=== PATIENT | male | born 1955 | race Caucasian/White ===

== ENCOUNTER 2018-03-26 16:36 | Observation (INO) | payer MEDICAID, SELFPAY ==
[2018-03-26] VITALS (11 sets, daily range): BP systolic 127–162; BP diastolic 61–89; PULSE 51–67; RESP 14–20; TEMP 36.5–36.7; O2SAT 96–98; BMI 42.8; BMI 42.5; BMI 42.6
--- NOTE | 2018-03-26 16:54 | CT_ITS ---
STUDY: CT BRAIN WITHOUT CONTRAST REASON FOR EXAM: Male, 62 years old. Dizziness and weakness RADIATION DOSAGE (If Supplied By Facility): CTDIvol = ( 44.99 ) mGy, DLP = ( 815.79 ) mGycm TECHNIQUE: Transaxial CT imaging of the brain was performed without administration of intravenous contrast material. Individualized dose optimization techniques were used for this CT. COMPARISON: 08/22/2015 FINDINGS: Normal soft tissue structures. Normal calvarium. There is mild cerebral atrophy with widening of the extra-axial spaces and ventricular dilatation. There are areas of decreased attenuation within the white matter tracts of the supratentorial brain, consistent with microvascular disease changes. Normal basal ganglia and thalami. Normal brainstem. Normal cerebellum. There is no intracranial hemorrhage. There are no findings of an acute ischemic infarction. Normal visualized paranasal sinuses. CT/Brain/Head without Contrast IMPRESSION: Chronic involutional changes of the brain. Electronically Signed: Jorge Nguyen DO at 17:58 EDT Tel , Service support ,
--- NOTE | 2018-03-26 16:54 | EKG12_ITS ---
Test Reason : SYNCOPE Blood Pressure : / mmHG Vent. Rate : 055 BPM Atrial Rate : 055 BPM P-R Int : 210 ms QRS Dur : 084 ms QT Int : 430 ms P-R-T Axes : 053 037 051 degrees QTc Int : 411 ms Sinus bradycardia with 1st degree A-V block Otherwise normal ECG Confirmed by JORDYN BLACKMON, ROSALIE ([id number]), editor continuity and script ROSEMARY YAN ([id number]) on 03/30/2018 2:51:04 PM Referred By: SAMMY Confirmed By:ROSALIE COBB MD
--- NOTE | 2018-03-26 17:15 | ED.DCSUM_ITS ---
- ER Visit Summary Date of Service: 03/26/18 Chief Complaint: Dizzy History of Present Illness: The patient is a 62 M with dizziness that started today around 3:45 PM. He describes it as the room spinning. He has had this intermittently but it seems to be getting worse. Denies any history of ear problems, hearing changes, tinnitus, or recent infections. He has never seen a specialist for vertigo. He is also having syncopal episodes which his doctor attributes to anxiety. He had similar symptoms earlier this month and was evaluated in an outside emergency department. He was told he was dehydrated and discharged home. He has had continued symptoms. He has a history of diabetes, hypertension, hyperlipidemia, atrial fibrillation, and others. He does take aspirin. He is a former smoker. Physical Examination: Afebrile and vital signs unremarkable. Alert and oriented . Head and neck atraumatic. HEENT exam unremarkable. Cranial nerves grossly intact. Heart regular rate and rhythm. Lungs clear. Abdomen soft and nontender. Extremities show trace symmetric peripheral edema. Nontender. Good pulses and sensation. Good strength. NIH stroke scale is 0. During my exam, the patient had a brief unresponsive episode that lasted about 10 seconds. He closed his eyes and looked away from me. He would not respond to voice. I did raise his arm over his head, and it drifted away from his body. He woke up spontaneously. He had no incontinence, tongue biting, shaking, or any confusion afterwards. Test Results: EKG shows sinus rhythm at a rate of 55. No sign of acute ischemia or infarction pattern. Laboratory studies, chest x-ray, and CT brain pending. Emergency Department Course and Treatment: Patient has no classic signs of stroke, but I am concerned this ongoing vertigo could be a posterior circulation problem. He does have risk factors. It does not sound like benign positional postural vertigo and he has no other ear related symptoms. I do not believe he has true syncopal episodes. I believe these might be behavioral. There is nothing to suggest seizures. His workup here including EKG, CBC, BMP, coags, troponin, chest x-ray, CT head is all unremarkable. Because of the patient's symptoms and risk factors, I did speak with the hospitalist to admit for dizziness. Treatment Plan: As above Disposition: Admission Impression: 1. Vertigo 2. Spells This note was generated with Dragon dictation software. It may contain incorrect words, spelling, and punctuation that were not noted in review of the chart prior to signing ED Disposition - Plan for ED Patient: Chief Complaint: Syncope Referrals: Devonte Moon MD [Primary Care Provider] -
[2018-03-26 17:36] LABS: Bedside Glucose 117 mg/dL (70-110)
--- NOTE | 2018-03-26 17:39 | RAD_ITS ---
STUDY: X-RAY CHEST REASON FOR EXAM: Male, 62 years old. Dizziness TECHNIQUE: Single AP portable view of the chest. COMPARISON: 06/07/2013 FINDINGS: The lungs are clear and expanded. There is no demonstrated pleural abnormality. Normal size heart. Normal mediastinum and mariaelena. Normal visualized pulmonary arteries. Normal visualized aortic arch and descending thoracic aorta. Normal visualized thoracic spine. Normal visualized ribs, clavicles, and shoulders. There is no demonstrated abnormality of the visualized soft tissue structures of the upper abdomen. RAD/Chest 1 View IMPRESSION: Normal x-ray examination of the chest. Electronically Signed: Jorge Nguyen DO at 17:58 EDT Tel , Service support ,
[2018-03-26 17:42] LABS: Absolute Lymphocyte Count 0.97 X10^3/ul (0.83-4.51); Absolute Neutrophil Count 4.1 X10^3/uL (2.0-7.7); Basophil# 0.03 X10^3/uL; Basophil% 0.5 % (0-1); Eosinophil# 0.21 X10^3/uL; Eosinophils% 3.6 % (0-5); Hematocrit 42.7 % (40-54); Hemoglobin 14.3 g/dl (13.0-16.5); Lymphocyte # 0.97 X10^3/ul (4.0); Lymphocyte % 16.6 % (19-41); Mean Corp Hgb Conc 33.5 g/gl (32-36); Mean Corpuscular Hgb 29.5 pg (27.0-32.0); Mean Corpuscular Volume 88.2 fL (80-94); Mean Platelet Vol. 8.9 fl (6.2-12.0); Monocyte# 0.52 X10^3/uL; Monocyte% 8.9 % (0-10); Neutrophil # 4.12 X10^3/uL (2.7-7.7); Neutrophil % 70.2 % (47-70); POSITIVE COUNT NO; POSITIVE DIFFERENTIAL NO; POSITIVE MORPHOLOGY NO; Platelet Count 197 K/mm3 (150-450); RBC Distribution Width SD 41.3 fl (35.1-43.9); Red Blood Count 4.84 M/mm3 (4.6-6.2); White Blood Count 5.9 K/mm3 (4.4-11.0)
[2018-03-26 17:53] LABS: Prothrombin Time (Protime)PT. 12.8 SECONDS (11.7-14.9)
[2018-03-26 18:09] LABS: Anion Gap 5 (5-15); BUN 28 mg/dL (7-18); BUN/Creat Ratio 18.7 RATIO (10-20); Calcium,Total 8.7 mg/dL (8.5-10.1); Chloride 107 mmol/L (98-107); EST Glomerular Filtration Rate 50 mL/min (>60); Est Glom Filt Rate - Afr Amer 61 mL/min (>60); Estimated Creatinine Clearance 51.06 ml/min; Glucose 129 mg/dL (74-106); Potassium 4.7 mmol/L (3.5-5.1); Sodium Level 138 mmol/L (136-145)
--- NOTE | 2018-03-26 18:24 | HP.PCM_ITS ---
Problem List (1) Dizziness Status: Acute History of Present Illness Date of Admission: 03/26/18 Chief Complaint: dizziness The patient is a 62 year old M with a history of hypertension, diabetes and hyperlipidemia. He was admitted via the ED on 03/26/18 with a complaint of dizziness which started in his doctor's office this morning. Patient says dizziness was of sudden onset, with no associated nausea or vomiting. He does admit to some ringing in his ears, and says the dizziness and vertigo has been going on for some years now. He has episodes of vertigo which are sudden and brief in nature, and started ~ 4 years ago. He had a similar episode ~ 2 weeks ago and some months ago. He complains of an associated headache. Vertigo and dizziness are not worsened by movement and can come on at any time. He denies any fever, chills, cough, chest pain, SOB, abdominal pain, diarrhea or vomiting. REview of systems was otherwise negative. Whilst in the ED, he was also noted to have brief unresponsive episodes which lasted a few seconds, and he immediately became conscious and alert, with no urinary or fecal incontinence, or evidence of seizure. Vitals in the ED showed temperature of 97.9 Fahrenheit, blood pressure 128/78, pulse rate of 67 and respiratory rate of 22. He was saturating 90% on room air. Labs were significant for creatinine of 1.5 with baseline being less than 1. CBC was unremarkable. Initial troponin was negative. Chest x-ray showed no acute ST changes and brain CT showed chronic involutional changes but no acute intracranial process. He is been admitted to be worked up for vertigo and dizziness.[] Past Medical History Past Medical History (Chronic Problems): Chronic Problems BPH (benign prostatic hyperplasia) (Chronic) Peptic ulcer disease with hemorrhage (Chronic) Paroxysmal atrial fibrillation (Chronic) Acute pancreatitis (Chronic) Allergies lanolin Allergy (Verified 03/26/18 16:46) Unknown Home Medications: Ambulatory Orders Medication Instructions Recorded Acebutolol HCl [Sectral (Beta 200 mg PO BID 03/26/18 [place])] Aspirin E.C. [Ecotrin] 81 mg PO DAILY 03/26/18 Flecainide [Tambocor] 100 mg PO BID 03/26/18 Lisinopril [Zestril] 5 mg PO DAILY 03/26/18 Metformin HCl [Glucophage] 500 mg PO BID 03/26/18 Pantoprazole Sodium 40 mg PO BID 03/26/18 Sertraline HCl [Zoloft] 50 mg PO DAILY 03/26/18 Simvastatin [Zocor] 20 mg PO QHS 03/26/18 Surgical History: cholecystectomy Psychiatric History: No pertinent psych hx Lives: Alone Smoking Status: Former smoker - quit ~ 4-5 years ago Alcohol: None Drugs: None - *Family History Maternal History Items: No pertinent history Paternal History Items: No pertinent history Review of Systems Constitutional: Denies: Chills, Fever, Weight Change Eyes: Denies: Blurred vision, Double vision, Vision Change HEENT: Denies: Head Aches, Sinus Congestion, Sinus Drainage Cardiovascular: Reports: Edema - bilateral LE edema. Denies: Chest Pain, Chest Pressure, Palpitations, Paroxysmal Noc. Dyspnea, Syncope Respiratory: Denies: Cough, Shortness of Breath, Shortness of breath at rest, Shortness of breath upon exertion, Sputum production Gastrointestinal: Denies: Abdominal Pain, Nausea, Vomiting Genitourinary: Denies: Dysuria Musculoskeletal: Denies: Joint Pain, Joint Tenderness Skin: Denies: Rash, Wounds Neurological: Reports: Numbness - complains of numbness of LLE. Denies: Balance problems, Blurred vision, Change in Speech, Slurred speech, Confusion, Tremor, Seizures Psychiatric: Denies: Anxiety, Depression, Homicidal Ideations, Suicidal Ideations Hematologic/ Lymphatic: Denies: Easy Bruising, Easy Bleeding VTE Information - Inpt Only VTE Present on Admission: No VTE Mechan Device Prophylaxis: None VTE Pharm Prophylaxis ordered?: Yes Patient Problems: Active and Suspected Problems Dizziness (Acute) - Physical Exam General: Alert, Oriented x3, Cooperative, No apparent distress HEENT: Atraumatic, PERRLA, EOMI, Normocephalic Oral: Moist Mucosa Neck: Supple, No JVD, Negative Carotid Bruits Lungs: Clear to auscultation, Normal air movement, No rhonchi, No wheeze, No rales Cardiovascular: Regular rate, Regular Rhythm, Normal S1, Normal S2, No murmurs Abdomen: Bowel Sounds Present, Soft, Non Tender, Non-Distended, No Hepato- splenomegaly Extremities: No clubbing, No cyanosis, Capillary Refill Less than 3 Seconds, No Calf Tenderness, - - mild 1+ bilateral LE edema Skin: No rashes, No breakdown Musculoskeletal: No Tenderness to Palpation of Joints or Extremities Neurological: Cranial nerves II-XII grossly intact, Deep Tendon Reflexes 2+/4 and Symmetrical, Motor Exam 5/5 strength throughout, Muscle tone normal, Sensory exam intact to light touch and pain, Coordination normal, - - no nystagmus. Didnt do Ariana Hallpike test as patient complained of dizziness during review Psych/Mental Status: Normal Affect, Appropriate, Alert and oriented to time, place, person, mood and affect Vital Signs Temp Pulse Resp BP Pulse Ox 97.9 F 51 L 17 127/72 H 96 03/26/18 16:40 03/26/18 18:00 03/26/18 18:00 03/26/18 18:00 03/26/18 18:00 Oxygen Delivery Method Room Air Weight: 290 lb Body Mass Index (BMI) 42.8 Finger Stick Blood Glucose 117 Laboratory Tests Past 24 Hrs 03/26/18 03/26/18 03/26/18 17:24 17:24 17:24 WBC 5.9 RBC 4.84 Hgb 14.3 Hct 42.7 MCV 88.2 MCH 29.5 MCHC 33.5 RDW 13.0 RDW Differential 41.3 Plt Count 197 MPV 8.9 Immature Gran % (Auto) 0.200 Neut % (Auto) 70.2 H Lymph % (Auto) 16.6 L Blaine % (Auto) 8.9 Eos % (Auto) 3.6 Baso % (Auto) 0.5 Absolute Neuts (auto) 4.1 Absolute Lymphs (auto) 0.97 Total Counted Not Reportable PT 12.8 INR 1.0 APTT 29.0 Sodium 138 Potassium 4.7 Chloride 107 Carbon Dioxide 26.0 Anion Gap 5 BUN 28 H Creatinine 1.50 H Estim Creat Clear Calc 51.06 Est GFR (MDRD) Af Amer 61 Est GFR (MDRD) Non-Af 50 L BUN/Creatinine Ratio 18.7 Glucose 129 H Calcium 8.7 Troponin I < 0.015 POC Glucose 03/26/18 17:29 POC Glucose 117 H Diagnostic Data Brain CT 03/26/18 16:54 IMPRESSION: Chronic involutional changes of the brain. Electronically Signed: Jorge Nguyen DO at 17:58 EDT Tel , Service support , Chest X-Ray 03/26/18 17:39 IMPRESSION: Normal x-ray examination of the chest. Electronically Signed: Jorge Nguyen DO at 17:58 EDT Tel , Service support , Assessment/Plan All Active Problems Dizziness (Acute) Abdominal pain (Acute) 62 y/o male presenting with a complaint of paroxysmal episodes of dizziness and vertigo. 1. Vertigo * had brief episode of vertigo in his PCP's office, which recurred when he was seen in ED. * vertigo has been going on for the past 4 years * CT head was negative for any acute intracranial process; * EKG showed NSR with first degree AV block * NIHSS-2 (mild drift in LEs). I think it is unlikely that patient's symptoms are due to a stroke, as it has been going on for the past 4 years episodically. * admit to PCU with telemetry * start PO meclizine * MRI of brain tomorrow * neurology consult * check lipid panel, A1C * aspirin 81mg daily. will switch simvastatin to atorvastatin 40mg qhs. * 2. Unresponsive spells * had a brief episode of unresponsiveness done in the ED and was immediately conscious afterwards with no lethargy or evidence of seizure. On admission to the floor, patient also had such a brief episode again. * Care of this is a seizure may be behavioral related. * Getting MRI tomorrow. Neurology consulted. * may benefit from EEG- will await neuro rec's * 3. Hypertension * well controlled. * on lisinopril and acetabulol; will continue * 4. Diabetes mellitus * on metformin 500mg bid * accuchecks ACHS. * will check A1c * ISS * 5. Hyperlipidemia: * on simvastatin 20mg qhs; will switch to high intensity atorvastatin 40mg qhs * check lipid panel * DVT prophylaxis: heparin Code status: full code * patient counselled extensively about code status; counseled about different types of code status, DNRCC and DNRCCA. Patient elects to be full code. Total face to face time 16 mins. Code Visit Inpatient E&M: 43294 Init Hosp L3 Procedures: 17151 Advncd Care Plan 30 Min
--- NOTE | 2018-03-26 19:00 | NURSING ---
185 Pt assisted to stand off of ER cot and ambulate to bed; pt reported he didn't feel well and subsequently passed out after this RN and Teri Hanna RN sat pt down on bed; luis alfredo hoffman pulled for assisted. Pt responded to sternal rub and yelling after approx 30 seconds. nurse monitoring not yet on at time of transfer to bed. When applied, pt in SR/SB upper 50s. 1900 NIHSS completed which was notable for varying degrees of R sided numbness and tingling. Pt also stated I'm in so much pain and subsequently passed out again for approx 10-15 seconds and was awakened to sternal rub and yelling. Pt c/o pain all over. Remains alert and oriented. Admission RN completing admission process at this time.
[2018-03-26] MEDS: Aspirin 81 MG TAB.CHEW PO (20:16)
[2018-03-26] MEDS: Flecainide 100 MG Tablet PO (21:23)
[2018-03-26] MEDS: Atorvastatin Calcium 40 MG Tablet PO (21:24)
[2018-03-26] MEDS: Pantoprazole Sodium 40 MG Tablet PO (21:24)
[2018-03-26] MEDS: Heparin Injection (Vial) 5,000 UNIT/ML VIAL 5000 UNIT SC (21:24)
[2018-03-26 22:26] LABS: Bedside Glucose 112 mg/dL (70-110)
[2018-03-27] VITALS (12 sets, daily range): BP systolic 119–135; BP diastolic 62–74; PULSE 48–61; RESP 16–18; TEMP 36.4–36.8; O2SAT 95–98; BMI 42.5
[2018-03-27 06:27] LABS: Absolute Lymphocyte Count 1.25 X10^3/ul (0.83-4.51); Absolute Neutrophil Count 3.5 X10^3/uL (2.0-7.7); Basophil# 0.03 X10^3/uL; Basophil% 0.5 % (0-1); Eosinophil# 0.22 X10^3/uL; Hematocrit 40.6 % (40-54); Hemoglobin 13.7 g/dl (13.0-16.5); Lymphocyte # 1.25 X10^3/ul (4.0); Lymphocyte % 22.8 % (19-41); Mean Corp Hgb Conc 33.7 g/gl (32-36); Mean Corpuscular Volume 88.8 fL (80-94); Mean Platelet Vol. 9.1 fl (6.2-12.0); Monocyte% 9.1 % (0-10); Neutrophil # 3.48 X10^3/uL (2.7-7.7); Neutrophil % 63.4 % (47-70); Platelet Count 205 K/mm3 (150-450); RBC Distribution Width CV 13.1 % (11.6-14.6); Red Blood Count 4.57 M/mm3 (4.6-6.2); White Blood Count 5.5 K/mm3 (4.4-11.0)
[2018-03-27 06:29] LABS: POSITIVE COUNT NO; POSITIVE DIFFERENTIAL NO; POSITIVE MORPHOLOGY NO
[2018-03-27 06:43] LABS: Anion Gap 6 (5-15); BUN 25 mg/dL (7-18); BUN/Creat Ratio 16.9 RATIO (10-20); Calcium,Total 8.3 mg/dL (8.5-10.1); Chloride 108 mmol/L (98-107); Cholesterol 133 mg/dL (200); Creatinine, Serum 1.48 mg/dL (0.70-1.30); EST Glomerular Filtration Rate 51 mL/min (>60); Est Glom Filt Rate - Afr Amer 62 mL/min (>60); Estimated Creatinine Clearance 51.75 ml/min; Glucose 132 mg/dL (74-106); High Density Lipoprotein 32 mg/dL; Potassium 4.3 mmol/L (3.5-5.1); Sodium Level 141 mmol/L (136-145); Triglycerides 255 mg/dL; Very Low Density Lipoprotein 51 mg/dL (5-40)
[2018-03-27] MEDS: Heparin Injection (Vial) 5,000 UNIT/ML VIAL 5000 UNIT SC ×3 (07:10→22:19)
[2018-03-27] MEDS: Acetaminophen 325 MG Tablet 650 MG PO (07:10)
[2018-03-27 07:15] LABS: Hemoglobin A1c 6.6 % (4.2-6.3)
[2018-03-27 07:25] LABS: Bedside Glucose 161 mg/dL (70-110)
--- NOTE | 2018-03-27 08:00 | MRI_ITS ---
STUDY: MRI BRAIN WITHOUT CONTRAST REASON FOR EXAM: Male, 62 years old. Vertigo, numbness and tingling. TECHNIQUE: Standardized multiplanar fat and water weighted pulse sequences were obtained. COMPARISON: CT of the head dated March 26, 2018. FINDINGS: There is mild cerebral atrophy with widening of the extra-axial spaces and ventricular dilatation. There are a limited number of small white matter hyperintensities, distributed throughout the deep white matter tracts of the cerebral hemispheres, consistent with mild chronic white matter ischemic changes. There is no evidence for recent intracranial ischemia or other cause of cytotoxic edema on diffusion weighted imaging (DWI). Normal T2* images of the brain without demonstrated susceptibility artifact. There is no demonstrated hemosiderin stain. Normal bilateral basal ganglia. Normal thalami. There is no extra-axial fluid accumulation. Normal flow voids within the major intracranial circulation suggesting patency by spin echo criteria. Normal sella turcica, pituitary gland, infundibular stalk, optic chiasm and hypothalamus. Normal tectal plate and pineal gland. Normal midbrain, jerel and medulla. Normal cerebellum. Normal basal cisterns. Normal bilateral temporal bones. Normal bilateral internal auditory canals. No demonstrated orbital abnormality, within the constraints of a routine brain study. Normal visualized paranasal sinuses. Normal calvarium and skull base. Normal visualized soft tissue structures. Normal visualized upper cervical spine. MRI/Brain without Contrast IMPRESSION: 1. Involutional changes of the brain, as described above. 2. No MR evidence for acute infarct. Electronically Signed: Crystal Quinones MD at 10:26 EDT , Service support ,
--- NOTE | 2018-03-27 08:00 | CDU_ITS ---
Reason For Study: vertigo Rt. Velocities/BP Lt. Velocities/BP Prox CCA 80.9/18.8 cm/sec. Prox CCA 77.4/18.8 cm/sec. Mid CCA 79.7/19.9 cm/sec. Mid CCA 62.1/10.6 cm/sec. Dist CCA 48.7/17.0 cm/sec. Dist CCA 42.2/9.38 cm/sec. Prox ICA 49.7/14.6 cm/sec. Prox ICA 44.0/15.2 cm/sec. Mid ICA 68.0/23.5 cm/sec. Mid ICA 61.0/18.8 cm/sec. Dist ICA 71.5/31.7 cm/sec. Dist ICA 70.9/26.4 cm/sec. Rt. ICA/CCA = .9. Lt. ICA/CCA = 1.1. Prox ECA 73.9/11.7 cm/sec. Prox ECA 83.3/8.79 cm/sec. Rt. Vert. 60.4/15.2 cm/sec. Lt. Vert. 46.9/14.1 cm/sec. Right Extracranial There is homogeneous, smooth atherosclerotic plaque noted in the right common carotid artery. There is homogeneous, smooth atherosclerotic plaque noted in the right internal carotid artery. There is intimal thickening but no significant atherosclerotic plaque noted in the right external carotid artery. Antegrade flow is noted in the right vertebral artery. Left Extracranial There is homogeneous, smooth atherosclerotic plaque noted in the left common carotid artery. There is intimal thickening but no significant atherosclerotic plaque noted in the left internal carotid artery. There is intimal thickening but no significant atherosclerotic plaque noted in the left external carotid artery. Antegrade flow is noted in the left vertebral artery. There is heterogeneous, irregular atherosclerotic plaque noted in the left bulb. Procedure Carotid Duplex 14130. The exam was diagnostic. Exam performed portable in patient room. Interpretation Summary There is <50% stenosis in bilateral extracranial internal carotid arteries (ICAs) based on the velocity criteria. Theres is mild homogenous athrosclerotic plaque noted in right ICA and heterogenous atherosclerotic plaque in the left ICA. There is antegrade flow in bilateral vertebral arteries. Ordering Physician: Emelia Ross Performed By: Ramírez Gibson RVT
--- NOTE | 2018-03-27 08:13 | MRI_ITS ---
STUDY: MRA NECK WITHOUT CONTRAST REASON FOR EXAM: Male, 62 years old. Vertigo, numbness, tingling and recent syncope. TECHNIQUE: Source images were obtained, MIPs were performed. The study was performed unenhanced. Multiple images are limited by patient motion. COMPARISON: None. FINDINGS: RIGHT CAROTID ARTERIES: Normal right common carotid artery (CCA). Normal right common carotid bulb. There is mild atherosclerotic plaque formation of the origin of the right internal carotid artery with less than 50% cross sectional diameter stenosis. Normal visualized cervical portion of the right internal carotid artery. Normal origin of the right external carotid artery (ECA). LEFT CAROTID ARTERIES: There appears to be a focal defect within the mid left common carotid artery that may represent focal plaque. This may narrow the lumen of by about 30%. Some of this could be artifactual. There is mild atherosclerotic plaque formation with minimal narrowing of the left carotid bulb. Normal origin of the left internal carotid (ICA) artery without a hemodynamically significant stenosis. Normal visualized cervical portion of the left internal carotid artery. Normal origin of the left external carotid artery (ECA). VERTEBRAL ARTERIES: Bilateral vertebral arteries are difficult to see probably related to the atretic nature. There does appear to be antegrade blood flow within bilateral vertebral arteries. MRI/MRA Neck without Contrast IMPRESSION: 1. Technically limited MRA with evidence for possible focal area stenosis in the left mid common carotid artery. 2. No other evidence for hemodynamically significant stenosis. 3. Atretic bilateral vertebral arteries. Electronically Signed: Crystal Quinones MD at 11:42 EDT , Service support ,
--- NOTE | 2018-03-27 08:13 | MRI_ITS ---
STUDY: MRA OF THE HEAD WITHOUT CONTRAST REASON FOR EXAM: Male, 62 years old. Vertigo, numbness and tingling. TECHNIQUE: 3-D [id number] (TOF) imaging was performed with MIPs. The study was performed unenhanced. COMPARISON: None. FINDINGS: Normal bilateral petrous carotid arteries. Normal right cavernous carotid artery with a normal supraclinoid bifurcation. Normal left cavernous carotid artery with a normal supraclinoid bifurcation. Normal right A1 segments of the anterior cerebral artery. Normal left A1 segments of the anterior cerebral artery. Normal intact anterior communicating artery (ACOM). Normal bilateral A2 segments of the anterior cerebral arteries. There is irregularity of the right M1 and M2 branches with minimal luminal narrowing, suggesting atherosclerotic plaque formation, without an occlusion. There is irregularity of the left M1 and M2 branches with minimal luminal narrowing, suggesting atherosclerotic plaque formation, without an occlusion. There is a persistent origin of the right posterior cerebral artery with absence of the P1 segment of the right posterior cerebral artery. There is a persistent origin of the left posterior cerebral artery with absence of the P1 segment of the left posterior cerebral artery. Normal bilateral vertebral arteries. Normal basilar artery with a normal basilar bifurcation. The visualized bilateral superior cerebellar (SCA) arteries are normal. There is absence of bilateral P1s segment of the posterior cerebral arteries. Normal visualized bilateral P2 and P3 segments of the posterior cerebral arteries. There is no demonstrated aneurysm of the [place]. There is no major vessel occlusion or hemodynamically significant stenosis. There is no demonstrated abnormality of the visualized brain. MRI/MRA Head ONLY without Contrast IMPRESSION: No MRA evidence for hemodynamically significant stenosis or aneurysm. Electronically Signed: Crystal Quinones MD at 11:16 EDT , Service support ,
--- NOTE | 2018-03-27 10:09 | ECHOCS_ITS ---
Reason For Study: Syncope Procedure This was a 2D Doppler, Color Flow transthoracic echocardiogram. The study was technically difficult. Contrast injection was performed. Exam performed portable in patient room. Left Ventricle Normal LV size. Left ventricular systolic function is normal. The estimated ejection fraction is 65 %. Diastolic function is indeterminate. No regional wall motion abnormalities noted. Right Ventricle Normal RV size. Normal systolic function. Atria The left atrium is mildly enlarged. Normal right atrium. No doppler evidence for ASD. Mitral Valve There is no mitral annular calcification. Normal mitral valve. Mild (1+) mitral valve insufficiency. Tricuspid Valve Normal tricuspid valve. Trivial tricuspid valve insufficiency. Right ventricular systolic pressure estimated to be 33 mmHg. Aortic Valve Trisinus/trileaflet aortic valve. Mild focal aortic valve thickening. Pulmonic Valve The pulmonic valve is not well visualized. Great Vessels Normal sized aortic root. Pericardium/Pleural No pericardial effusion. Medication Diluted definity 2ml given slow IV push to enhance endocardial definition. MMode/2D Measurements & Calculations LVIDd: 4.6 cm IVSd: 1.2 cm Ao root diam: 3.1 cm LVIDs: 2.5 cm LVPWd: 1.2 cm LA dimension: 4.3 cm FS: 46.9 % LAV(MOD-sp4): 76.6 ml LA A4 area: 23.5 cm2 RA A4 area: 19.3 cm2 Time Measurements MV dec time: 0.19 sec Doppler Measurements & Calculations MV E max humberto: 93.6 cm/sec Lat Peak E' Humberto: 13.8 cm/sec Med Peak E' Humberto: 14.5 cm/sec MV A max humberto: 66.4 cm/sec E/E' lat: 6.8 E/E' med: 6.5 MV E/A: 1.4 MV V2 max: 124.2 cm/sec MV P1/2t max humberto: 122.3 cm/sec Ao V2 max: 144.5 cm/sec MV max P.2 mmHg MV P1/2t: 74.7 msec Ao max P.3 mmHg MV V2 mean: 54.1 cm/sec MV dec slope: 479.7 cm/sec2 Ao V2 mean: 84.9 cm/sec MV mean P.5 mmHg MVA(P1/2t): 2.9 cm2 Ao mean P.5 mmHg MV V2 VTI: 35.5 cm Ao V2 VTI: 30.7 cm LV V1 max: 131.9 cm/sec TV V2 max: 274.9 cm/sec PA V2 max: 146.4 cm/sec LV V1 max P.0 mmHg TV max P.2 mmHg LV V1 mean P.9 mmHg LV V1 mean: 77.2 cm/sec LV V1 VTI: 29.5 cm Interpretation Summary The study was technically difficult. Contrast injection was performed. Left ventricular systolic function is normal. The estimated ejection fraction is 65 %. The left atrium is mildly enlarged. Mild (1+) mitral valve insufficiency. Trivial tricuspid valve insufficiency. Mild focal aortic valve thickening. Right ventricular systolic pressure estimated to be 33 mmHg. Diastolic function is indeterminate. Ordering Physician: Savage Trinidad Referring Physician: Devonte Moon Performed By: Edmundo Pike RCS
[2018-03-27] MEDS: Lisinopril 5 MG Tablet PO (10:23)
[2018-03-27] MEDS: Pantoprazole Sodium 40 MG Tablet PO ×2 (10:23→22:20)
[2018-03-27] MEDS: Aspirin 81 MG TAB.CHEW PO (10:23)
[2018-03-27] MEDS: Sertraline 50 MG Tablet PO (10:23)
[2018-03-27 11:35] LABS: Bedside Glucose 153 mg/dL (70-110)
--- NOTE | 2018-03-27 11:49 | PCM.PN.HOSP ---
Patient Problems: Active and Suspected Problems Dizziness (Acute) Subjective: Patient is a 62-year-old gentleman admitted with dizziness (which he described as a spinning sensation) followed by series of syncopal episode patient admitted to a monitored bed for subsequent evaluation. Underwent subsequent evaluation with MRI which was negative for acute CVA Patient seen appears extremely worried about his situation. Review of telemetry monitoring did show relative bradycardia with heart rates in the upper 40s. Patient is on both flecainide as well as acebutolol the latter held. Consultation was placed to cardiology and a 2D echo ordered Objective: GENERAL: cooperative HEENT: Atraumatic; moist oral mucosa EYES; Anicteric, Normal Conjunctiva NECK; supple, normal thyroid, no distended JVD. RESPIRATORY: Diminished to auscultation bilaterally, CARDIOVASCULAR: Regular S1 S2, no audible murmurs GI: soft, non-tender, normoactive bowel sounds, : No Renal angle tenderness; No orona EXTREMITIES: No edema, no clubbing, no cyanosis. MUSCULOSKELTAL: No Joint Tenderness; no muscle waisting NEURO: Awake; no lateralizing signs. SKIN: No Rash PSYCH; Normal affect Vitals/I&O's: Vital Signs Temp Pulse Resp BP Pulse Ox 97.7 F L 54 L 18 119/63 96 03/27/18 08:00 03/27/18 10:55 03/27/18 08:00 03/27/18 08:00 03/27/18 08:00 Oxygen Delivery Method Room Air Weight: 130.7 kg Body Mass Index (BMI) 42.5 Finger Stick Blood Glucose 117 Intake and Output for Last 24 Hours 03/25/18 03/26/18 03/27/18 23:59 23:59 23:59 Intake Total 600 / 600 Output Total 950 / 950 Balance -350 / -350 Laboratory Results 03/26/18 17:24: WBC 5.9, RBC 4.84, Hgb 14.3, Hct 42.7, MCV 88.2, MCH 29.5, MCHC 33.5, RDW 13.0, RDW Differential 41.3, Plt Count 197, MPV 8.9, Immature Gran % (Auto) 0.200, Neut % (Auto) 70.2 H, Lymph % (Auto) 16.6 L, [place] % (Auto) 8.9, Eos % (Auto) 3.6, Baso % (Auto) 0.5, Absolute Neuts (auto) 4.1, Absolute Lymphs (auto) 0.97, Total Counted Not Reportable 03/26/18 17:24: PT 12.8, INR 1.0, APTT 29.0 03/26/18 17:24: Sodium 138, Potassium 4.7, Chloride 107, Carbon Dioxide 26.0, Anion Gap 5, BUN 28 H, Creatinine 1.50 H, Estim Creat Clear Calc 51.06, Est GFR (MDRD) Af Amer 61, Est GFR (MDRD) Non-Af 50 L, BUN/Creatinine Ratio 18.7, Glucose 129 H, Calcium 8.7, Troponin I < 0.015 03/26/18 17:29: POC Glucose 117 H 03/26/18 20:18: POC Glucose 112 H 03/27/18 05:52: Hemoglobin A1c 6.6 H 03/27/18 05:52: WBC 5.5, RBC 4.57 L, Hgb 13.7, Hct 40.6, MCV 88.8, MCH 30.0, MCHC 33.7, RDW 13.1, RDW Differential 42.0, Plt Count 205, MPV 9.1, Immature Gran % (Auto) 0.200, Neut % (Auto) 63.4, Lymph % (Auto) 22.8, [place] % (Auto) 9.1, Eos % (Auto) 4.0, Baso % (Auto) 0.5, Absolute Neuts (auto) 3.5, Absolute Lymphs (auto) 1.25, Total Counted Not Reportable 03/27/18 05:52: Sodium 141, Potassium 4.3, Chloride 108 H, Carbon Dioxide 27.0, Anion Gap 6, BUN 25 H, Creatinine 1.48 H, Estim Creat Clear Calc 51.75, Est GFR (MDRD) Af Amer 62, Est GFR (MDRD) Non-Af 51 L, BUN/Creatinine Ratio 16.9, Glucose 132 H, Calcium 8.3 L, Triglycerides 255 H, Cholesterol 133, LDL Cholesterol 50, VLDL Cholesterol 51 H, HDL Cholesterol 32 L 03/27/18 07:19: POC Glucose 161 H 03/27/18 11:31: POC Glucose 153 H Current Medications Acetaminophen (Tylenol) 650 mg PO Q6H PRN PRN PRN Reason: Non-cardiac pain (mod-severe) Last Admin: 03/27/18 07:10 Dose: 650 mg Aspirin (Aspirin, Baby) 81 mg PO DAILY@0800 [facility] Last Admin: 03/27/18 10:23 Dose: 81 mg Atorvastatin Calcium (Lipitor) 40 mg PO QHS [facility] Last Admin: 03/26/18 21:24 Dose: 40 mg Dextrose (D50w Syringe) 0 gm IV X1 PRN; Protocol PRN Reason: Hypoglycemia Flecainide Acetate (Tambocor) 100 mg PO BID [facility] Last Admin: 03/27/18 10:23 Dose: Not Given Glucagon () 1 mg IM .X1 PRN PRN Reason: Hypoglycemia Heparin Sodium (Porcine) (Heparin Na) 5,000 unit SC Q8 [facility] Last Admin: 03/27/18 07:10 Dose: 5,000 unit Insulin Human Lispro (Humalog Kwikpen (Bkc)) 0 unit SQ ACHS [facility]; Protocol Last Admin: 03/27/18 11:37 Dose: Not Given Lisinopril (Zestril) 5 mg PO DAILY [facility] Last Admin: 03/27/18 10:23 Dose: 5 mg Magnesium Hydroxide (Milk Of Magnesia) 30 ml PO DAILY PRN PRN PRN Reason: Constipation Pantoprazole Sodium (Protonix) 40 mg PO BID [facility] Last Admin: 03/27/18 10:23 Dose: 40 mg Sertraline HCl (Zoloft) 50 mg PO DAILY [facility] Last Admin: 03/27/18 10:23 Dose: 50 mg Medical Necessity - Tobacco Use Smoking Status: Former smoker Tobacco Use: Cigars, Pipe Assessment/Plan All Active Problems Dizziness (Acute) Abdominal pain (Acute) Patient is a 62-year-old gentleman admitted with dizziness (which he described as a spinning sensation) followed by series of syncopal episode patient admitted to a monitored bed for subsequent evaluation. Underwent subsequent evaluation with MRI which was negative for acute CVA 1. Acute vertigo etiology not clear MRI was negative for posterior circulation CVA 2. Recurrent syncopal episode patient has been admitted to a monitored bed undergoing continuous telemetry monitoring. Serial cardiac enzymes have remained negative to date 2D echo ordered. Telemetry monitoring did reveal relative bradycardia patient beta-blockers held in consultation placed to cardiology 3. Paroxysmal A. fib patient is in sinus rhythm on both beta blockers as well as flecainide 4. Hypertension-blood pressure controlled, home medications except for acebutolol continued with dose adjustment as needed 5. Diabetes mellitus type 2 on metformin held in view of impaired kidney function. Please and Accu-Cheks before meals and at bedtime with sliding scale insulin 6. Dyslipidemia; patient is on simvastatin and switch to atorvastatin 7. Morbid obesity with BMI of 42.6 8. Acute kidney injury potential nephrotoxic medications held on fluids with monitoring of electrolytes 9. DVT prophylaxis SC heparin Code status: full code Code Visit OBSV E&M: 26528 Subsequent observation care L3
--- NOTE | 2018-03-27 11:52 | PN_ITS ---
Patient Problems: Active and Suspected Problems Dizziness (Acute) Subjective: Patient is a 62-year-old gentleman admitted with dizziness (which he described as a spinning sensation) followed by series of syncopal episode patient admitted to a monitored bed for subsequent evaluation. Underwent subsequent evaluation with MRI which was negative for acute CVA Patient seen appears extremely worried about his situation. Review of telemetry monitoring did show relative bradycardia with heart rates in the upper 40s. Patient is on both flecainide as well as acebutolol the latter held. Consultation was placed to cardiology and a 2D echo ordered Objective: GENERAL: cooperative HEENT: Atraumatic; moist oral mucosa EYES; Anicteric, Normal Conjunctiva NECK; supple, normal thyroid, no distended JVD. RESPIRATORY: Diminished to auscultation bilaterally, CARDIOVASCULAR: Regular S1 S2, no audible murmurs GI: soft, non-tender, normoactive bowel sounds, : No Renal angle tenderness; No orona EXTREMITIES: No edema, no clubbing, no cyanosis. MUSCULOSKELTAL: No Joint Tenderness; no muscle waisting NEURO: Awake; no lateralizing signs. SKIN: No Rash PSYCH; Normal affect Vitals/I&O's: Vital Signs Temp Pulse Resp BP Pulse Ox 97.7 F L 54 L 18 119/63 96 03/27/18 08:00 03/27/18 10:55 03/27/18 08:00 03/27/18 08:00 03/27/18 08:00 Oxygen Delivery Method Room Air Weight: 130.7 kg Body Mass Index (BMI) 42.5 Finger Stick Blood Glucose 117 Intake and Output for Last 24 Hours 03/25/18 03/26/18 03/27/18 23:59 23:59 23:59 Intake Total 600 / 600 Output Total 950 / 950 Balance -350 / -350 Laboratory Results 03/26/18 17:24: WBC 5.9, RBC 4.84, Hgb 14.3, Hct 42.7, MCV 88.2, MCH 29.5, MCHC 33.5, RDW 13.0, RDW Differential 41.3, Plt Count 197, MPV 8.9, Immature Gran % (Auto) 0.200, Neut % (Auto) 70.2 H, Lymph % (Auto) 16.6 L, [place] % (Auto) 8.9, Eos % (Auto) 3.6, Baso % (Auto) 0.5, Absolute Neuts (auto) 4.1, Absolute Lymphs (auto) 0.97, Total Counted Not Reportable 03/26/18 17:24: PT 12.8, INR 1.0, APTT 29.0 03/26/18 17:24: Sodium 138, Potassium 4.7, Chloride 107, Carbon Dioxide 26.0, Anion Gap 5, BUN 28 H, Creatinine 1.50 H, Estim Creat Clear Calc 51.06, Est GFR (MDRD) Af Amer 61, Est GFR (MDRD) Non-Af 50 L, BUN/Creatinine Ratio 18.7, Glucose 129 H, Calcium 8.7, Troponin I < 0.015 03/26/18 17:29: POC Glucose 117 H 03/26/18 20:18: POC Glucose 112 H 03/27/18 05:52: Hemoglobin A1c 6.6 H 03/27/18 05:52: WBC 5.5, RBC 4.57 L, Hgb 13.7, Hct 40.6, MCV 88.8, MCH 30.0, MCHC 33.7, RDW 13.1, RDW Differential 42.0, Plt Count 205, MPV 9.1, Immature Gran % (Auto) 0.200, Neut % (Auto) 63.4, Lymph % (Auto) 22.8, [place] % (Auto) 9.1, Eos % (Auto) 4.0, Baso % (Auto) 0.5, Absolute Neuts (auto) 3.5, Absolute Lymphs (auto) 1.25, Total Counted Not Reportable 03/27/18 05:52: Sodium 141, Potassium 4.3, Chloride 108 H, Carbon Dioxide 27.0, Anion Gap 6, BUN 25 H, Creatinine 1.48 H, Estim Creat Clear Calc 51.75, Est GFR (MDRD) Af Amer 62, Est GFR (MDRD) Non-Af 51 L, BUN/Creatinine Ratio 16.9, Glucose 132 H, Calcium 8.3 L, Triglycerides 255 H, Cholesterol 133, LDL Cholesterol 50, VLDL Cholesterol 51 H, HDL Cholesterol 32 L 03/27/18 07:19: POC Glucose 161 H 03/27/18 11:31: POC Glucose 153 H Current Medications Acetaminophen (Tylenol) 650 mg PO Q6H PRN PRN PRN Reason: Non-cardiac pain (mod-severe) Last Admin: 03/27/18 07:10 Dose: 650 mg Aspirin (Aspirin, Baby) 81 mg PO DAILY@0800 [facility] Last Admin: 03/27/18 10:23 Dose: 81 mg Atorvastatin Calcium (Lipitor) 40 mg PO QHS [facility] Last Admin: 03/26/18 21:24 Dose: 40 mg Dextrose (D50w Syringe) 0 gm IV X1 PRN; Protocol PRN Reason: Hypoglycemia Flecainide Acetate (Tambocor) 100 mg PO BID [facility] Last Admin: 03/27/18 10:23 Dose: Not Given Glucagon () 1 mg IM .X1 PRN PRN Reason: Hypoglycemia Heparin Sodium (Porcine) (Heparin Na) 5,000 unit SC Q8 [facility] Last Admin: 03/27/18 07:10 Dose: 5,000 unit Insulin Human Lispro (Humalog Kwikpen (Bkc)) 0 unit SQ ACHS [facility]; Protocol Last Admin: 03/27/18 11:37 Dose: Not Given Lisinopril (Zestril) 5 mg PO DAILY [facility] Last Admin: 03/27/18 10:23 Dose: 5 mg Magnesium Hydroxide (Milk Of Magnesia) 30 ml PO DAILY PRN PRN PRN Reason: Constipation Pantoprazole Sodium (Protonix) 40 mg PO BID [facility] Last Admin: 03/27/18 10:23 Dose: 40 mg Sertraline HCl (Zoloft) 50 mg PO DAILY [facility] Last Admin: 03/27/18 10:23 Dose: 50 mg Medical Necessity - Tobacco Use Smoking Status: Former smoker Tobacco Use: Cigars, Pipe Assessment/Plan All Active Problems Dizziness (Acute) Abdominal pain (Acute) Patient is a 62-year-old gentleman admitted with dizziness (which he described as a spinning sensation) followed by series of syncopal episode patient admitted to a monitored bed for subsequent evaluation. Underwent subsequent evaluation with MRI which was negative for acute CVA 1. Acute vertigo etiology not clear MRI was negative for posterior circulation CVA 2. Recurrent syncopal episode patient has been admitted to a monitored bed undergoing continuous telemetry monitoring. Serial cardiac enzymes have remained negative to date 2D echo ordered. Telemetry monitoring did reveal relative bradycardia patient beta-blockers held in consultation placed to cardiology 3. Paroxysmal A. fib patient is in sinus rhythm on both beta blockers as well as flecainide 4. Hypertension-blood pressure controlled, home medications except for shirlene butolol continued with dose adjustment as needed 5. Diabetes mellitus type 2 on metformin held in view of impaired kidney function. Please and Accu-Cheks before meals and at bedtime with sliding scale insulin 6. Dyslipidemia; patient is on simvastatin and switch to atorvastatin 7. Morbid obesity with BMI of 42.6 8. Acute kidney injury potential nephrotoxic medications held on fluids with monitoring of electrolytes 9. DVT prophylaxis SC heparin Code status: full code Code Visit OBSV E&M: 27897 Subsequent observation care L3
--- NOTE | 2018-03-27 12:02 | CON.PCM_ITS ---
Problem List (1) Dizziness Status: Acute Reason for Consult Date of Consultation: 03/27/18 Reason for Consultation: Dizziness History of Present Illness: The patient is a 62 year old CM with PMH HTN, HLD, DM, ? paroxysmal Afib not on AC, H/O neck surgery, depression admitted with dizziness. Per patient he has dizziness for many years but yesterday (03/26/18) it was worse, the room was spinning, he had nausea, also complaints of ringing in the ears, complaints of some left sided numbness, denies any focal motor weakness, per patient he lives alone, denies any falls, does not drive. He complaints of mild generalized CHAVEZ but denies any vision loss, jaw claudication or temporal tenderness. Per patient he also episodes where he would pass out/become unresponsive and can occur multiple times per patient, is brief, denies any witnessed seizures, per patient he can hear people talking when he has one of those episodes/spells but he is not able to respond to the same, denies any tongue bite or urinary incontinence or confusion with the spell. [] Past Medical History Past Medical History (Chronic Problems): Chronic Problems BPH (benign prostatic hyperplasia) (Chronic) Peptic ulcer disease with hemorrhage (Chronic) Paroxysmal atrial fibrillation (Chronic) Acute pancreatitis (Chronic) Allergies lanolin Allergy (Verified 03/26/18 16:46) Unknown Home Medications: Ambulatory Orders Medication Instructions Recorded Acebutolol HCl [Sectral (Beta 200 mg PO BID 03/26/18 [place])] Aspirin E.C. [Ecotrin] 81 mg PO DAILY 03/26/18 Flecainide [Tambocor] 100 mg PO BID 03/26/18 Lisinopril [Zestril] 5 mg PO DAILY 03/26/18 Metformin HCl [Glucophage] 500 mg PO BID 03/26/18 Pantoprazole Sodium 40 mg PO BID 03/26/18 Sertraline HCl [Zoloft] 50 mg PO DAILY 03/26/18 Simvastatin [Zocor] 20 mg PO QHS 03/26/18 Surgical History: cholecystectomy Psychiatric History: No pertinent psych hx Lives: Alone Smoking Status: Former smoker Tobacco Use: Cigars, Pipe Alcohol: None Drugs: None - *Family History Maternal History Items: No pertinent history Paternal History Items: No pertinent history Review of Systems Constitutional: Reports: - - complete ROS negative except as documented in HPI Patient Problems: Active and Suspected Problems Dizziness (Acute) Syncope (Acute) - Physical Exam General: Alert HEENT: Normocephalic Neck: Supple Lungs: Normal air movement Cardiovascular: Normal S1, Normal S2 Abdomen: Bowel Sounds Present Extremities: No cyanosis Neurological: - - consious, alert, CN 2-12 grossly intact except ? left 7th palsy (possible functional), power 5/5 all 4 extremities, decrease effort on the left side, subjective sensory loss to light touch on the left side, no cerebllar signs, Reflexes + B/L B/S/T/K/A, tone normal, gait deferred. Psych/Mental Status: Normal Affect Vital Signs Temp Pulse Resp BP Pulse Ox 97.7 F L 54 L 18 119/63 96 03/27/18 08:00 03/27/18 10:55 03/27/18 08:00 03/27/18 08:00 03/27/18 08:00 Oxygen Delivery Method Room Air Weight: 130.7 kg Body Mass Index (BMI) 42.5 Finger Stick Blood Glucose 117 Intake and Output for Last 24 Hours 03/25/18 03/26/18 03/27/18 23:59 23:59 23:59 Intake Total 600 / 600 Output Total 950 / 950 Balance -350 / -350 Laboratory Tests Past 24 Hrs 03/26/18 03/26/18 03/26/18 17:24 17:24 17:24 WBC 5.9 RBC 4.84 Hgb 14.3 Hct 42.7 MCV 88.2 MCH 29.5 MCHC 33.5 RDW 13.0 RDW Differential 41.3 Plt Count 197 MPV 8.9 Immature Gran % (Auto) 0.200 Neut % (Auto) 70.2 H Lymph % (Auto) 16.6 L [place] % (Auto) 8.9 Eos % (Auto) 3.6 Baso % (Auto) 0.5 Absolute Neuts (auto) 4.1 Absolute Lymphs (auto) 0.97 Total Counted Not Reportable PT 12.8 INR 1.0 APTT 29.0 Sodium 138 Potassium 4.7 Chloride 107 Carbon Dioxide 26.0 Anion Gap 5 BUN 28 H Creatinine 1.50 H Estim Creat Clear Calc 51.06 Est GFR (MDRD) Af Amer 61 Est GFR (MDRD) Non-Af 50 L BUN/Creatinine Ratio 18.7 Glucose 129 H Hemoglobin A1c Calcium 8.7 Troponin I < 0.015 Triglycerides Cholesterol LDL Cholesterol VLDL Cholesterol HDL Cholesterol 03/27/18 03/27/18 03/27/18 05:52 05:52 05:52 WBC 5.5 RBC 4.57 L Hgb 13.7 Hct 40.6 MCV 88.8 MCH 30.0 MCHC 33.7 RDW 13.1 RDW Differential 42.0 Plt Count 205 MPV 9.1 Immature Gran % (Auto) 0.200 Neut % (Auto) 63.4 Lymph % (Auto) 22.8 [place] % (Auto) 9.1 Eos % (Auto) 4.0 Baso % (Auto) 0.5 Absolute Neuts (auto) 3.5 Absolute Lymphs (auto) 1.25 Total Counted Not Reportable PT INR APTT Sodium 141 Potassium 4.3 Chloride 108 H Carbon Dioxide 27.0 Anion Gap 6 BUN 25 H Creatinine 1.48 H Estim Creat Clear Calc 51.75 Est GFR (MDRD) Af Amer 62 Est GFR (MDRD) Non-Af 51 L BUN/Creatinine Ratio 16.9 Glucose 132 H Hemoglobin A1c 6.6 H Calcium 8.3 L Troponin I Triglycerides 255 H Cholesterol 133 LDL Cholesterol 50 VLDL Cholesterol 51 H HDL Cholesterol 32 L POC Glucose 03/27/18 03/27/18 03/26/18 11:31 07:19 20:18 POC Glucose 153 H 161 H 112 H 03/26/18 17:29 POC Glucose 117 H Assessment/Plan All Active Problems Dizziness (Acute) Syncope (Acute) Abdominal pain (Acute) The patient is a 62 year old CM with PMH HTN, HLD, DM, ? paroxysmal Afib not on AC, H/O neck surgery, depression admitted with dizziness. Per patient he has dizziness for many years but yesterday (03/26/18) it was worse, the room was spinning, he had nausea, also complaints of ringing in the ears, complaints of some left sided numbness, denies any focal motor weakness, per patient he lives alone, denies any falls, does not drive. He complaints of mild generalized CHAVEZ but denies any vision loss, jaw claudication or temporal tenderness. Per patient he also episodes where he would pass out/become unresponsive and can occur multiple times per patient, is brief, denies any witnessed seizures, per patient he can hear people talking when he has one of those episodes/spells but he is not able to respond to the same, denies any tongue bite or urinary incontinence or confusion with the spell. MRI brain on admission reported nothing acute, MRA head/neck no stenosis or occlusion Impression Dizziness-likely peripheral etiology Syncope/Unresponsive episodes-? Cause-possible medication induced Possible conversion d/o Plan -On ASA and statins -MRI brain - no acute stroke, MRA head/neck- no hemodynamic significant occlusion/stenosis -Await EEG -Check TTE -Vestibular therapy and ENT referral -Check ESR -PT/OT -GI/DVT prophylaxis -Fall precautions -Psychiatry consult -Cardiology evaluation of possible syncope/unresponsive episode/spells -30 day event recorder, will defer to cardiology -PAF management per primary team and Cardiology. -Further medical management per primary team -Please call with questions if any -Thank you for allowing us to participate in patient's care and management I spent 60 minutes taking history, doing physical examination, reviewing medical records, coordinating care and counseling the patient. Code Visit Inpatient E&M: 28685 Init Hosp L3
[2018-03-27] MEDS: Insulin Lispro 100 UNIT/ML INSULN.PEN SQ (12:19)
[2018-03-27 13:09] LABS: Erythrocyte Sedimentation Rate 18 mm/hr (0-20)
--- NOTE | 2018-03-27 13:21 | EEG ---
- Electroencephalogram Date of service 03/27/2018 History EEG is being done in this 62 yr M to rule out seizures EEG Description: This is an 18 channel EEG with 10-20 lead placement system. Bipolar montages, Referential and Circumferential montages were reviewed. Photic stimulation and Hyperventilation were performed. The posterior dominant rhythm is 7 HZ synchronous, symmetric, reacting to eye opening and closing. Photo stimulation elicited normal driving response but no abnormal photoparoxysmal response, Hyperventilation did not elicit any abnormal photoparoxysmal response. Sleep was identified. There is mild generalized abnormal background slowing in the theta frequency range. There was no epileptiform discharges or electrographic seizures noted during this recording. EKG artefact noted during the record. EEG Interpretation This is an abnormal EEG due to mild generalized slowing. This may be seen in generalized cerebral dysfunction like metabolic/toxic encephalopathy. Clinical correlation is advised. There is no epileptiform discharges or electrographic seizures noted during the record.
[2018-03-27] MEDS: 0.9% Normal Saline 1,000 ML 150 ML IV ×2 (13:39→19:45)
--- NOTE | 2018-03-27 13:45 | NURSING ---
This RN in room with patient. Attempted to get pt up to chair. Pt sat up to edge of bed and c/o dizziness then fell back in bed with eyes closed. This RN said pt's name and performed sternal rub and pt's eyes opened. Stated he still felt dizzy. Notified cardiology of 'episode'
--- NOTE | 2018-03-27 13:51 | CON.PCM_ITS ---
Problem List (1) Dizziness Status: Acute (2) Syncope Status: Acute (3) Paroxysmal atrial fibrillation Status: Chronic Reason for Consult Date of Consultation: 03/27/18 History of Present Illness: The patient is a 62 year old white male with a past medical history which is included paroxysmal atrial fibrillation who is referred for evaluation of dizziness and syncope. He has undergone previous cardiovascular consultation at [facility] on 05/20/2013 for concerns at that time of chest discomfort, sinus bradycardia, paroxysmal atrial fibrillation, possible hypertension, and pancreatitis. He has had a previous noninvasive and invasive evaluation. He had a transthoracic echocardiogram performed on 04/24/2013. His left ventricle was normal with an LV EF of 60% with mild concentric LVH with trivial MR, mild TR, mild focal aortic valve thickening, and an estimated RV systolic pressure of 31 mmHg. He had a pharmacologic stress nuclear imaging study performed as well. He had findings compatible with the effects of soft tissue attenuation/artifact and gastrointestinal tracer uptake/contraction with no myocardial perfusion changes consider diagnostic for associated stress-induced myocardial ischemia or previous myocardial injury/infarction. However, based upon recurrent chest discomfort he was referred back to cardiology for reevaluation with diagnostic cardiac catheterization. This was performed on 05/21/2013. At that time the left ventricle was normal with an LVEF of 60%, the left main coronary artery was normal, the LAD had proximal diffuse 10% stenosis, the LCx was considered normal, the RCA had proximal to mid diffuse 10% stenosis. He states since that time he is followed with the [facility]. He states that for episodes of his dizziness and episodes of syncope he has undergone further evaluation. He notes that he has episodes of dizziness and syncope. These can happen at any time whether he is standing sitting or supine. He notes he can feel very dizzy. He can be weak in the legs. He believes he loses consciousness. He states he is undergone an extensive evaluation at [facility] including a tilt table study. He does not recall the results. According to his outpatient [facility] medical record available for review from his visit yesterday with his primary care physician, where he had another episode, it states that he had a quite extensive workup and psychogenic etiology was felt to be most likely . He was subsequently placed in the hospital. He was noted to have sinus bradycardia. He has been on beta-dalton therapy along with his antiarrhythmic therapy with flecainide/Tambocor. His beta-dalton therapy was placed on hold. He has continued to be monitored and demonstrated sinus rhythm with heart rate between 50 and 60 bpm. His ECG has demonstrated no new acute changes. He had a transthoracic echocardiogram performed. His left ventricle was thought to be normal with an LVEF of 65% with mild left atrial enlargement mild MR, trivial TR, mild focal aortic valve thickening, and estimated RV systolic pressure 33 mmHg, and diastolic dysfunction was considered indeterminant. He was in bed. He was being prepared to receive IV fluids. He sat up. He complained of being dizzy. He subsequently laid back in bed. He appeared transiently unresponsive to the nursing staff. During this time he remained in sinus rhythm with his sinus bradycardia without significant change. He has denied ongoing chest discomfort or difficulty breathing. There is been no orthopnea, PND, peripheral pitting edema. He has noted lower extremity edema which apparently is not new and sometimes worse on the left than the right. He noted that the he does wear support stockings. [] Past Medical History Allergies/Adverse Reactions: Allergies lanolin Allergy (Verified 03/26/18 16:46) Unknown Home Medications: Ambulatory Orders Medication Instructions Recorded Acebutolol HCl [Sectral (Beta 200 mg PO BID 03/26/18 Dalton)] Aspirin E.C. [Ecotrin] 81 mg PO DAILY 03/26/18 Flecainide [Tambocor] 100 mg PO BID 03/26/18 Lisinopril [Zestril] 5 mg PO DAILY 03/26/18 Metformin HCl [Glucophage] 500 mg PO BID 03/26/18 Pantoprazole Sodium 40 mg PO BID 03/26/18 Sertraline HCl [Zoloft] 50 mg PO DAILY 03/26/18 Simvastatin [Zocor] 20 mg PO QHS 03/26/18 Past Medical History (Chronic Problems): Chronic Problems BPH (benign prostatic hyperplasia) (Chronic) Peptic ulcer disease with hemorrhage (Chronic) Paroxysmal atrial fibrillation (Chronic) Acute pancreatitis (Chronic) Surgical History: cholecystectomy Psychiatric History: No pertinent psych hx - *Family History Maternal History Items: No pertinent history Paternal History Items: No pertinent history Lives: Alone Smoking Status: Former smoker Tobacco Use: Cigars, Pipe Alcohol: None Drugs: None Review of Systems - Review of Systems General: Denies: Fever, Night Sweats, Fatigue Cardiovascular: Reports: Dizziness, Near Syncope, Syncope. Denies: Chest Discomfort, Shortness of Breath, Orthopnea, PND, Peripheral Edema, Palpitations, Lightheadedness Respiratory: Denies: Cough, Sputum Production, Hemoptysis Gastrointestinal: Denies: Hematemesis, Hematochezia, Melena Genitourinary: Denies: Dysuria, Hematuria Skin: Denies: Rash Subjectve: This is a 62-year-old white male who appears to be resting comfortably at the moment in no acute distress. Objective: Vital Signs Temp Pulse Resp BP Pulse Ox 97.7 F L 54 L 18 119/63 96 03/27/18 08:00 03/27/18 10:55 03/27/18 08:00 03/27/18 08:00 03/27/18 08:00 Oxygen Delivery Method Room Air Weight: 288 lb 2.307 oz Body Mass Index (BMI) 42.5 Finger Stick Blood Glucose 117 Intake and Output for Last 24 Hours 03/25/18 03/26/18 03/27/18 23:59 23:59 23:59 Intake Total 600 / 600 Output Total 950 / 950 Balance -350 / -350 General: Awake, Alert, Oriented x 3, Cooperative, No Acute Distress, Obese HEENT: Atraumatic, Normocephalic, PERRL, EOMI, Sclera Non Icteric Oral: Moist Mucosa Neck: Supple, Good ROM, No JVD Lungs: Clear to auscultation Cardiovascular: Regular Rhythm, Normal S1, Normal S2 Vascular: No Carotid Bruits Abdomen: Soft, Non Tender Extremities: Trace RLE Edema, Mild LLE Edema Psych/Mental Status: Appropriate, Normal Affect 03/26/18 17:24: WBC 5.9, RBC 4.84, Hgb 14.3, Hct 42.7, MCV 88.2, MCH 29.5, MCHC 33.5, RDW 13.0, RDW Differential 41.3, Plt Count 197, MPV 8.9, Immature Gran % (Auto) 0.200, Neut % (Auto) 70.2 H, Lymph % (Auto) 16.6 L, Hudspeth % (Auto) 8.9, Eos % (Auto) 3.6, Baso % (Auto) 0.5, Absolute Neuts (auto) 4.1, Total Counted Not Reportable 03/26/18 17:24: PT 12.8, INR 1.0, APTT 29.0 03/26/18 17:24: Sodium 138, Potassium 4.7, Chloride 107, Carbon Dioxide 26.0, Anion Gap 5, BUN 28 H, Creatinine 1.50 H, Est GFR (MDRD) Af Amer 61, Est GFR (MDRD) Non-Af 50 L, BUN/Creatinine Ratio 18.7, Glucose 129 H, Calcium 8.7, Troponin I < 0.015 03/27/18 05:52: Hemoglobin A1c 6.6 H 03/27/18 05:52: WBC 5.5, RBC 4.57 L, Hgb 13.7, Hct 40.6, MCV 88.8, MCH 30.0, MCHC 33.7, RDW 13.1, RDW Differential 42.0, Plt Count 205, MPV 9.1, Immature Gran % (Auto) 0.200, Neut % (Auto) 63.4, Lymph % (Auto) 22.8, Hudspeth % (Auto) 9.1, Eos % (Auto) 4.0, Baso % (Auto) 0.5, Absolute Neuts (auto) 3.5, Total Counted Not Reportable 03/27/18 05:52: Sodium 141, Potassium 4.3, Chloride 108 H, Carbon Dioxide 27.0, Anion Gap 6, BUN 25 H, Creatinine 1.48 H, Est GFR (MDRD) Af Amer 62, Est GFR (MDRD) Non-Af 51 L, BUN/Creatinine Ratio 16.9, Glucose 132 H, Calcium 8.3 L, Triglycerides 255 H, Cholesterol 133, LDL Cholesterol 50, VLDL Cholesterol 51 H, HDL Cholesterol 32 L Rhythm: Sinus rhythm/sinus bradycardia EKG: As noted above ECHO: As noted above Stress Test: As noted above Cardiac Cath: As noted above CXR: Preliminary evaluation: No acute cardiopulmonary disease process appreciated. Carotid artery duplex study: Per report mild disease bilaterally with no angiographically significant disease reported with respect to the carotid or vertebral system: Please see official report Brain MRI: Per radiology: No acute findings/pathology: Please see official report Assessment/Plan 1. Dizziness/syncope The patient presents with recurrent episodes of dizziness/syncope. He states this is been going on for quite some time (years). He states he has been evaluated at multiple institutions with multiple studies with no definitive etiology. He continues with his events. At the present time he appears to be remaining in sinus rhythm/sinus bradycar bonnie. This is not necessarily new for him. Thus far there is been no direct correlation with his events with additional cardiac dysrhythmias or conduction system related events. There is concern as to whether or not he may have decreased intravascular volume based upon his clinical condition and elevated creatinine levels. Thus he is going to receive IV fluids. He is undergone additional noninvasive cardiovascular evaluation with transthoracic echocardiogram with the findings as noted above. He is also undergone additional noninvasive evaluation with carotid artery duplex study and brain MRI as noted above with no acute findings to explain his events. From a cardiac standpoint this time an attempt will be made to retrieve previous outside medical records for continuity of care purposes. Obtaining his tilt table test and his subsequent cardiovascular comments may be beneficial with respect to his evaluation and differential diagnosis and therapies. His beta-blockers have been placed on hold by internal medicine. Ideally as he remains on flecainide/Tambocor he would need to be on a rate limiting medication in case he does develop an atrial dysrhythmia that could lead to dysrhythmias such as atrial flutter with one-to-one conduction. There is a question as to whether or not he needs to remain on his flecainide/Tambocor, which potentially can be related to dizziness although has not been found in the past to be the sole etiology for his recurrent events, therapy without any obvious evidence of recurrent atrial dysrhythmias. Perhaps this can be decreased or discontinued. He may need to undergo further noncardiac evaluation as well with input from neurology. 2. Paroxysmal atrial fibrillation He has a remote history of paroxysmal afibrillation. Again there is been no report of recurrent events. His cardiac rate and rhythm are as noted above. His beta-blockers have been placed on hold. As noted above based upon no obvious recurrence of his atrial dysrhythmia and with ongoing concern perhaps his antiarrhythmic therapy can be decreased and discontinued. He would need to be monitored for any recurrent cardiac dysrhythmias. Comment: The above has been discussed and reviewed with the patient. This note was generated with [employer] software. It may contain incorrect words, spelling, and punctuation that were not noted in checking the note befo re signing.
--- NOTE | 2018-03-27 16:03 | CHAPLAIN ---
Type of Pastoral Visit _x__ Initial Visit ___ Follow-up Visit ___ On-call Visit ___ General Patient Visit ___ Spiritual Assessment ___ Family Conference ___ Bereavement ___ Rapid Response ___ Code Blue ___ Other (describe below) Pastoral Care Referral From _x__ Patient ___ Family ___ Nurse ___ Physician ___ Breaker Up ___ Manufacturing Project Engineer ___ Other (describe below) Sacrament/Intervention _x__ Active listening ___ Anointing ___ Jewish ___ Bereavement ___ Communion ___ Shameka exploration ___ ___ Life review ___ Prayer ___ Reconciliation ___ Sacrament of Sick ___ Supportive presence ___ Wedding ___ Other (describe below) Pastoral Comments
[2018-03-27 17:55] LABS: Bedside Glucose 133 mg/dL (70-110)
--- NOTE | 2018-03-27 18:25 | EKG12_ITS ---
Test Reason : CP Blood Pressure : / mmHG Vent. Rate : 060 BPM Atrial Rate : 060 BPM P-R Int : 204 ms QRS Dur : 086 ms QT Int : 438 ms P-R-T Axes : 045 041 052 degrees QTc Int : 438 ms Normal sinus rhythm Normal ECG When compared with ECG of 26-MAR-2018 16:55, MANUAL COMPARISON REQUIRED, DATA IS UNCONFIRMED Confirmed by DIANA BLACKMON, MONIKA ([id number]), photography editor ROSEMARY YAN ([id number]) on 03/31/2018 2:54:06 PM Referred By: CONCEPCIÓN Confirmed By:MONIKA ORTIZ MD
[2018-03-27] MEDS: Atorvastatin Calcium 40 MG Tablet PO (22:20)
[2018-03-27 22:30] LABS: Bedside Glucose 123 mg/dL (70-110)
[2018-03-28] VITALS (11 sets, daily range): BP systolic 121–130; BP diastolic 56–88; PULSE 53–84; RESP 14–16; TEMP 36.4–36.9; O2SAT 96–99
--- NOTE | 2018-03-28 01:00 | NURSING ---
Patient has denies numbness and tingling since change of shift. Patient was sitting in chair and was asked by RN how he was feeling. He expressed fine and moments later around 2345 expressed that he wanted to go back to bed because he was very dizzy. With help of aide Elizabeth patient returned to bed. Pt was immediately laughing and watching tv. Came in around 0040 to check on patient. Patient denied any needs at this time. Patient called aide into room at 0050 and expressed he had complete numbness in left side and neck. I came into patients room and his left arm was up. When patient saw me he returned arm flat to side. When asked what patient was feeling. Patient expressed,I cannot feel the whole left side of my body. It is completely numb and I can't move it. My arm and my leg are numb completely and it is in my neck. When patient was asked to move arm he stated he could only lift it so far. When expressed that I thought he couldn't move it at all he began moving hand around and shifting in bed. I expressed to the patient the urgency of calling a stroke and informing the doctor. It had been expressed during dayshift that the patients actions due to all testing being negative that it may all be behavioral. Patient apologized for calling. I explained he didn't need to be sorry and that if he was genuinely having numbness or weakness I would call the doctor. The patient then lifted his left arm again when I turned to turn on the light. He was moving the left arm. Patient apologized again. MD called at 0100. MD informed of days events as well as patients actions and information at this time.MD has no new orders and wants patient monitored. Patient assessed at this time as well as when I returned to patients room he was moving left arm all around. Did an NIH on patient. Patient would score a 2. Reported left sided numbness but not deficits in terms of movement. Patient able to life and hold left arm and leg. Very faint left facial droop when smiling. All noted prior in NIH's and MD's dayshift were aware. Will continue to monitor.
[2018-03-28] MEDS: 0.9% Normal Saline 1,000 ML 150 ML IV ×2 (02:15→10:45)
[2018-03-28] MEDS: Heparin Injection (Vial) 5,000 UNIT/ML VIAL 5000 UNIT SC ×3 (05:07→22:20)
--- NOTE | 2018-03-28 06:01 | NURSING ---
Came into patients room and he once again expressed that he was sorry and stated,my left side is normal now. It isn't numb or tingling. I can feel it and move it just fine. It stopped and I think you helped. Patient denies feeling dizzy or light headed at this time.
[2018-03-28 06:36] LABS: Hematocrit 38.9 % (40-54); Hemoglobin 13.2 g/dl (13.0-16.5); Mean Corp Hgb Conc 33.9 g/gl (32-36); Mean Corpuscular Hgb 30.2 pg (27.0-32.0); Mean Platelet Vol. 9.3 fl (6.2-12.0); Platelet Count 174 K/mm3 (150-450); RBC Distribution Width CV 12.8 % (11.6-14.6); RBC Distribution Width SD 41.1 fl (35.1-43.9); Red Blood Count 4.37 M/mm3 (4.6-6.2); White Blood Count 5.5 K/mm3 (4.4-11.0)
[2018-03-28 06:44] LABS: Scan Indicated on CBC? Y/N NO
[2018-03-28 06:48] LABS: Anion Gap 7 (5-15); BUN 20 mg/dL (7-18); BUN/Creat Ratio 14.8 RATIO (10-20); Calcium,Total 7.8 mg/dL (8.5-10.1); Chloride 111 mmol/L (98-107); Creatinine, Serum 1.35 mg/dL (0.70-1.30); EST Glomerular Filtration Rate 57 mL/min (>60); Est Glom Filt Rate - Afr Amer 69 mL/min (>60); Estimated Creatinine Clearance 56.73 ml/min; Glucose 116 mg/dL (74-106); Magnesium 2.1 mg/dL (1.6-2.6); Potassium 4.1 mmol/L (3.5-5.1); Sodium Level 142 mmol/L (136-145)
[2018-03-28 06:51] LABS: Bedside Glucose 107 mg/dL (70-110)
[2018-03-28] MEDS: Aspirin 81 MG TAB.CHEW PO (08:49)
[2018-03-28] MEDS: Pantoprazole Sodium 40 MG Tablet PO ×2 (08:49→22:21)
[2018-03-28] MEDS: Flecainide 100 MG Tablet PO ×2 (08:50→22:21)
[2018-03-28] MEDS: Sertraline 50 MG Tablet PO (08:51)
--- NOTE | 2018-03-28 09:00 | PCM.PN.HOSP ---
Patient Problems: Active and Suspected Problems Dizziness (Acute) Syncope (Acute) Subjective: Seen still complains of feeling unsteady on his feet. Was seen and assessed by physical therapy the recommendation is for patient to have continuous PT. Consult subsequently placed to case management to assist with disposition possibly to a senior care facility this was discussed with patient who is agreeable Objective: GENERAL: cooperative HEENT: Atraumatic; moist oral mucosa EYES; Anicteric, Normal Conjunctiva NECK; supple, normal thyroid, no distended JVD. RESPIRATORY: Diminished to auscultation bilaterally, CARDIOVASCULAR: Regular S1 S2, no audible murmurs GI: soft, non-tender, normoactive bowel sounds, : No Renal angle tenderness; No orona EXTREMITIES: No edema, no clubbing, no cyanosis. MUSCULOSKELTAL: No Joint Tenderness; no muscle waisting NEURO: Awake; no lateralizing signs. SKIN: No Rash PSYCH; Normal affect Vitals/I&O's: Vital Signs Temp Pulse Resp BP Pulse Ox 98.0 F 60 14 122/56 H 97 03/28/18 04:14 03/28/18 07:05 03/28/18 04:14 03/28/18 04:14 03/28/18 04:14 Oxygen Delivery Method Room Air Weight: 130.7 kg Body Mass Index (BMI) 42.5 Finger Stick Blood Glucose 117 Intake and Output for Last 24 Hours 03/26/18 03/27/18 03/28/18 23:59 23:59 23:59 Intake Total 1982 / 1982 2374 / 2374 Output Total 1750 / 1750 1250 / 1250 Balance 233 / 233 1124 / 1124 Laboratory Results 03/27/18 05:52: ESR 18 03/27/18 11:31: POC Glucose 153 H 03/27/18 16:57: POC Glucose 133 H 03/27/18 22:17: POC Glucose 123 H 03/28/18 05:52: WBC 5.5, RBC 4.37 L, Hgb 13.2, Hct 38.9 L, MCV 89.0, MCH 30.2, MCHC 33.9, RDW 12.8, RDW Differential 41.1, Plt Count 174, MPV 9.3 03/28/18 05:52: Sodium 142, Potassium 4.1, Chloride 111 H, Carbon Dioxide 24.0, Anion Gap 7, BUN 20 H, Creatinine 1.35 H, Estim Creat Clear Calc 56.73, Est GFR (MDRD) Af Amer 69, Est GFR (MDRD) Non-Af 57 L, BUN/Creatinine Ratio 14.8, Glucose 116 H, Calcium 7.8 L, Magnesium 2.1 03/28/18 06:44: POC Glucose 107 Current Medications Acetaminophen (Tylenol) 650 mg PO Q6H PRN PRN PRN Reason: Non-cardiac pain (mod-severe) Last Admin: 03/27/18 07:10 Dose: 650 mg Aspirin (Aspirin, Baby) 81 mg PO DAILY@0800 [facility] Last Admin: 03/28/18 08:49 Dose: 81 mg Atorvastatin Calcium (Lipitor) 40 mg PO QHS [facility] Last Admin: 03/27/18 22:20 Dose: 40 mg Dextrose (D50w Syringe) 0 gm IV X1 PRN; Protocol PRN Reason: Hypoglycemia Flecainide Acetate (Tambocor) 100 mg PO BID [facility] Last Admin: 03/28/18 08:50 Dose: 100 mg Glucagon () 1 mg IM .X1 PRN PRN Reason: Hypoglycemia Heparin Sodium (Porcine) (Heparin Na) 5,000 unit SC Q8 [facility] Last Admin: 03/28/18 05:07 Dose: 5,000 unit Sodium Chloride () 1,000 mls @ 150 mls/hr IV .Q6H40M [facility] Stop: 03/28/18 15:04 Last Admin: 03/28/18 02:15 Dose: 150 mls/hr Insulin Human Lispro (Humalog Kwikpen (Bkc)) 0 unit SQ ACHS [facility]; Protocol Last Admin: 03/28/18 06:48 Dose: Not Given Magnesium Hydroxide (Milk Of Magnesia) 30 ml PO DAILY PRN PRN PRN Reason: Constipation Pantoprazole Sodium (Protonix) 40 mg PO BID [facility] Last Admin: 03/28/18 08:49 Dose: 40 mg Sertraline HCl (Zoloft) 50 mg PO DAILY [facility] Last Admin: 03/28/18 08:51 Dose: 50 mg Medical Necessity - Tobacco Use Smoking Status: Former smoker Tobacco Use: Cigars, Pipe Assessment/Plan All Active Problems Dizziness (Acute) Syncope (Acute) Abdominal pain (Acute) Patient is a 62-year-old gentleman admitted with dizziness (which he described as a spinning sensation) followed by series of syncopal episode patient admitted to a monitored bed for subsequent evaluation. Underwent subsequent evaluation with MRI which was negative for acute CVA 1. Acute vertigo etiology not clear MRI was negative for posterior circulation CVA 2. Recurrent syncopal episode patient has been admitted to a monitored bed undergoing continuous telemetry monitoring. Serial cardiac enzymes have remained negative to date 2D echo ordered. Telemetry monitoring did reveal relative bradycardia patient beta-blockers held in consultation placed to cardiology patient was seen by Dr. Joshi he is noted recommendations reviewed 3. Paroxysmal A. fib patient is in sinus rhythm on both beta blockers as well as flecainide 4. Hypertension-blood pressure controlled, home medications except for acebutolol continued with dose adjustment as needed 5. Diabetes mellitus type 2 on metformin held in view of impaired kidney function. Please and Accu-Cheks before meals and at bedtime with sliding scale insulin 6. Dyslipidemia; patient is on simvastatin and switch to atorvastatin 7. Morbid obesity with BMI of 42.6 8. Acute kidney injury potential nephrotoxic medications held on fluids with monitoring of electrolytes 9. DVT prophylaxis SC heparin Code status: full code Active Medications Acetaminophen (Tylenol) 650 mg PO Q6H PRN PRN PRN Reason: Non-cardiac pain (mod-severe) Last Admin: 03/27/18 07:10 Dose: 650 mg Aspirin (Aspirin, Baby) 81 mg PO DAILY@0800 [facility] Last Admin: 03/28/18 08:49 Dose: 81 mg Atorvastatin Calcium (Lipitor) 40 mg PO QHS [facility] Last Admin: 03/27/18 22:20 Dose: 40 mg Dextrose (D50w Syringe) 0 gm IV X1 PRN; Protocol PRN Reason: Hypoglycemia Flecainide Acetate (Tambocor) 100 mg PO BID [facility] Last Admin: 03/28/18 08:50 Dose: 100 mg Glucagon () 1 mg IM .X1 PRN PRN Reason: Hypoglycemia Heparin Sodium (Porcine) (Heparin Na) 5,000 unit SC Q8 [facility] Last Admin: 03/28/18 05:07 Dose: 5,000 unit Sodium Chloride () 1,000 mls @ 150 mls/hr IV .Q6H40M [facility] Stop: 03/28/18 15:04 Last Admin: 03/28/18 02:15 Dose: 150 mls/hr Insulin Human Lispro (Humalog Kwikpen (Bkc)) 0 unit SQ ACHS [facility]; Protocol Last Admin: 03/28/18 06:48 Dose: Not Given Magnesium Hydroxide (Milk Of Magnesia) 30 ml PO DAILY PRN PRN PRN Reason: Constipation Pantoprazole Sodium (Protonix) 40 mg PO BID [facility] Last Admin: 03/28/18 08:49 Dose: 40 mg Sertraline HCl (Zoloft) 50 mg PO DAILY [facility] Last Admin: 03/28/18 08:51 Dose: 50 mg Clinical Impression(s) from Imaging Studies Brain CT 03/26/18 16:54 IMPRESSION: Chronic involutional changes of the brain. Electronically Signed: Jorge Nguyen DO at 17:58 EDT Tel , Service support , Chest X-Ray 03/26/18 17:39 IMPRESSION: Normal x-ray examination of the chest. Electronically Signed: Jorge Nguyen DO at 17:58 EDT Tel , Service support , Brain MRI 03/27/18 08:00 IMPRESSION: 1. Involutional changes of the brain, as described above. 2. No MR evidence for acute infarct. Electronically Signed: Crystal Quinones MD at 10:26 EDT , Service support , Head MRA 03/27/18 08:13 IMPRESSION: No MRA evidence for hemodynamically significant stenosis or aneurysm. Electronically Signed: Crystal Quinones MD at 11:16 EDT , Service support , Neck MRA 03/27/18 08:13 IMPRESSION: 1. Technically limited MRA with evidence for possible focal area stenosis in the left mid common carotid artery. 2. No other evidence for hemodynamically significant stenosis. 3. Atretic bilateral vertebral arteries. Electronically Signed: Crystal Quinones MD at 11:42 EDT , Service support , Code Visit OBSV E&M: 37403 Subsequent observation care L3
--- NOTE | 2018-03-28 09:07 | PN_ITS ---
Patient Problems: Active and Suspected Problems Dizziness (Acute) Syncope (Acute) Subjective: Seen still complains of feeling unsteady on his feet. Was seen and assessed by physical therapy the recommendation is for patient to have continuous PT. Consult subsequently placed to case management to assist with disposition possibly to a [place] [facility] [place] facility this was discussed with patient who is agreeable Objective: GENERAL: cooperative HEENT: Atraumatic; moist oral mucosa EYES; Anicteric, Normal Conjunctiva NECK; supple, normal thyroid, no distended JVD. RESPIRATORY: Diminished to auscultation bilaterally, CARDIOVASCULAR: Regular S1 S2, no audible murmurs GI: soft, non-tender, normoactive bowel sounds, : No Renal angle tenderness; No orona EXTREMITIES: No edema, no clubbing, no cyanosis. MUSCULOSKELTAL: No Joint Tenderness; no muscle waisting NEURO: Awake; no lateralizing signs. SKIN: No Rash PSYCH; Normal affect Vitals/I&O's: Vital Signs Temp Pulse Resp BP Pulse Ox 98.0 F 60 14 122/56 H 97 03/28/18 04:14 03/28/18 07:05 03/28/18 04:14 03/28/18 04:14 03/28/18 04:14 Oxygen Delivery Method Room Air Weight: 130.7 kg Body Mass Index (BMI) 42.5 Finger Stick Blood Glucose 117 Intake and Output for Last 24 Hours 03/26/18 03/27/18 03/28/18 23:59 23:59 23:59 Intake Total 1982 / 1982 2374 / 2374 Output Total 1750 / 1750 1250 / 1250 Balance 233 / 233 1124 / 1124 Laboratory Results 03/27/18 05:52: ESR 18 03/27/18 11:31: POC Glucose 153 H 03/27/18 16:57: POC Glucose 133 H 03/27/18 22:17: POC Glucose 123 H 03/28/18 05:52: WBC 5.5, RBC 4.37 L, Hgb 13.2, Hct 38.9 L, MCV 89.0, MCH 30.2, MCHC 33.9, RDW 12.8, RDW Differential 41.1, Plt Count 174, MPV 9.3 03/28/18 05:52: Sodium 142, Potassium 4.1, Chloride 111 H, Carbon Dioxide 24.0, Anion Gap 7, BUN 20 H, Creatinine 1.35 H, Estim Creat Clear Calc 56.73, Est GFR (MDRD) Af Amer 69, Est GFR (MDRD) Non-Af 57 L, BUN/Creatinine Ratio 14.8, Glucose 116 H, Calcium 7.8 L, Magnesium 2.1 03/28/18 06:44: POC Glucose 107 Current Medications Acetaminophen (Tylenol) 650 mg PO Q6H PRN PRN PRN Reason: Non-cardiac pain (mod-severe) Last Admin: 03/27/18 07:10 Dose: 650 mg Aspirin (Aspirin, Baby) 81 mg PO DAILY@0800 [facility] Last Admin: 03/28/18 08:49 Dose: 81 mg Atorvastatin Calcium (Lipitor) 40 mg PO QHS [facility] Last Admin: 03/27/18 22:20 Dose: 40 mg Dextrose (D50w Syringe) 0 gm IV X1 PRN; Protocol PRN Reason: Hypoglycemia Flecainide Acetate (Tambocor) 100 mg PO BID [facility] Last Admin: 03/28/18 08:50 Dose: 100 mg Glucagon () 1 mg IM .X1 PRN PRN Reason: Hypoglycemia Heparin Sodium (Porcine) (Heparin Na) 5,000 unit SC Q8 [facility] Last Admin: 03/28/18 05:07 Dose: 5,000 unit Sodium Chloride () 1,000 mls @ 150 mls/hr IV .Q6H40M [facility] Stop: 03/28/18 15:04 Last Admin: 03/28/18 02:15 Dose: 150 mls/hr Insulin Human Lispro (Humalog Kwikpen (Bkc)) 0 unit SQ ACHS [facility]; Protocol Last Admin: 03/28/18 06:48 Dose: Not Given Magnesium Hydroxide (Milk Of Magnesia) 30 ml PO DAILY PRN PRN PRN Reason: Constipation Pantoprazole Sodium (Protonix) 40 mg PO BID [facility] Last Admin: 03/28/18 08:49 Dose: 40 mg Sertraline HCl (Zoloft) 50 mg PO DAILY [facility] Last Admin: 03/28/18 08:51 Dose: 50 mg Medical Necessity - Tobacco Use Smoking Status: Former smoker Tobacco Use: Cigars, Pipe Assessment/Plan All Active Problems Dizziness (Acute) Syncope (Acute) Abdominal pain (Acute) Patient is a 62-year-old gentleman admitted with dizziness (which he described as a spinning sensation) followed by series of syncopal episode patient admitted to a monitored bed for subsequent evaluation. Underwent subsequent evaluation with MRI which was negative for acute CVA 1. Acute vertigo etiology not clear MRI was negative for posterior circulation CVA 2. Recurrent syncopal episode patient has been admitted to a monitored bed undergoing continuous telemetry monitoring. Serial cardiac enzymes have remained negative to date 2D echo ordered. Telemetry monitoring did reveal relative bradycardia patient beta-blockers held in consultation placed to cardiology patient was seen by Dr. Joshi he is noted recommendations reviewed 3. Paroxysmal A. fib patient is in sinus rhythm on both beta blockers as well as flecainide 4. Hypertension-blood pressure controlled, home medications except for acebutolol continued with dose adjustment as needed 5. Diabetes mellitus type 2 on metformin held in view of impaired kidney function. Please and Accu-Cheks before meals and at bedtime with sliding scale insulin 6. Dyslipidemia; patient is on simvastatin and switch to atorvastatin 7. Morbid obesity with BMI of 42.6 8. Acute kidney injury potential nephrotoxic medications held on fluids with monitoring of electrolytes 9. DVT prophylaxis SC heparin Code status: full code Active Medications Acetaminophen (Tylenol) 650 mg PO Q6H PRN PRN PRN Reason: Non-cardiac pain (mod-severe) Last Admin: 03/27/18 07:10 Dose: 650 mg Aspirin (Aspirin, Baby) 81 mg PO DAILY@0800 [facility] Last Admin: 03/28/18 08:49 Dose: 81 mg Atorvastatin Calcium (Lipitor) 40 mg PO QHS [facility] Last Admin: 03/27/18 22:20 Dose: 40 mg Dextrose (D50w Syringe) 0 gm IV X1 PRN; Protocol PRN Reason: Hypoglycemia Flecainide Acetate (Tambocor) 100 mg PO BID [facility] Last Admin: 03/28/18 08:50 Dose: 100 mg Glucagon () 1 mg IM .X1 PRN PRN Reason: Hypoglycemia Heparin Sodium (Porcine) (Heparin Na) 5,000 unit SC Q8 [facility] Last Admin: 03/28/18 05:07 Dose: 5,000 unit Sodium Chloride () 1,000 mls @ 150 mls/hr IV .Q6H40M [facility] Stop: 03/28/18 15:04 Last Admin: 03/28/18 02:15 Dose: 150 mls/hr Insulin Human Lispro (Humalog Kwikpen (Bkc)) 0 unit SQ ACHS [facility]; Protocol Last Admin: 03/28/18 06:48 Dose: Not Given Magnesium Hydroxide (Milk Of Magnesia) 30 ml PO DAILY PRN PRN PRN Reason: Constipation Pantoprazole Sodium (Protonix) 40 mg PO BID [facility] Last Admin: 03/28/18 08:49 Dose: 40 mg Sertraline HCl (Zoloft) 50 mg PO DAILY [facility] Last Admin: 03/28/18 08:51 Dose: 50 mg Clinical Impression(s) from Imaging Studies Brain CT 03/26/18 16:54 IMPRESSION: Chronic involutional changes of the brain. Electronically Signed: Jorge Nguyen DO at 17:58 EDT Tel , Service support , Chest X-Ray 03/26/18 17:39 IMPRESSION: Normal x-ray examination of the chest. Electronically Signed: Jorge Nguyen DO at 17:58 EDT Tel , Service support , Brain MRI 03/27/18 08:00 IMPRESSION: 1. Involutional changes of the brain, as described above. 2. No MR evidence for acute infarct. Electronically Signed: Crystal Quinones MD at 10:26 EDT , Service support , Head MRA 03/27/18 08:13 IMPRESSION: No MRA evidence for hemodynamically significant stenosis or aneurysm. Electronically Signed: Crystal Quinones MD at 11:16 EDT , Service support , Neck MRA 03/27/18 08:13 IMPRESSION: 1. Technically limited MRA with evidence for possible focal area stenosis in the left mid common carotid artery. 2. No other evidence for hemodynamically significant stenosis. 3. Atretic bilateral vertebral arteries. Electronically Signed: Crystal Quinones MD at 11:42 EDT , Service support , Code Visit OBSV E&M: 92009 Subsequent observation care L3
--- NOTE | 2018-03-28 09:50 | NURSING ---
Physical therapy was in the room working with the patient, and called the staff in the room to assist. they state that the patient passed out. he was already sitting in the chair, and was uninjured. he awoke after about 5 seconds, and was completely alert and oriented, then after about 2 minutes, his eyes closed and his head fell to the side. he was un responsive for apox 5 more seconds, then awoke and was again alert and oriented and carrying on a conversation, saying goodbye to the therapist as she was walking out of then room. again he was awake for aprox 2 more minutes and then his eyes closed and his head fell to the side. after aprox 5 more seconds he awoke and was oriented and carrying on with an appropriate conversation with staff. during this time, heart rate remained stable around 70, sinus rhythm on tele. vital signs obtained, were WNL, blood glucose checked. Dr Amos cavazos, who then came to the room to see the patient and did assess him.
[2018-03-28 10:11] LABS: Bedside Glucose 229 mg/dL (70-110)
[2018-03-28] MEDS: Insulin Lispro 100 UNIT/ML INSULN.PEN SQ ×2 (11:36→22:21)
[2018-03-28 11:46] LABS: Bedside Glucose 150 mg/dL (70-110)
--- NOTE | 2018-03-28 13:36 | CASEMGMT ---
Social Work Consult: For group home placement. Spoke with patient in room. Patient is agreeable to group home placement and reporting to have been at [facility] in the past and to possibly be interested in same placement but is also wanting to look at other options. Was unable to determine what facilities are in-network with patient insurance. Attempted to look up on-line as well as call [facility], [facility] not have a [facility] service on the weekends. Support given. Social work to continue to follow for placement. Myriam MEDEIROSW, QUALITY AUDIT REPRESENTATIVE
--- NOTE | 2018-03-28 13:57 | PCM.PN.CARD ---
Subjectve: The patient denies ongoing chest discomfort or difficulty breathing. He states he has had recurrent episodes of his abrupt loss of consciousness. These episodes have been witnessed by the medical staff. During these episodes he has maintained his cardiac rate and rhythm and blood pressure. Objective: Vital Signs Temp Pulse Resp BP Pulse Ox 97.6 F L 60 16 121/60 H 96 03/28/18 10:14 03/28/18 11:00 03/28/18 10:14 03/28/18 10:14 03/28/18 10:14 Oxygen Delivery Method Room Air Weight: 288 lb 2.307 oz Body Mass Index (BMI) 42.5 Finger Stick Blood Glucose 117 Intake and Output for Last 24 Hours 03/26/18 03/27/18 03/28/18 23:59 23:59 23:59 Intake Total 1982 2854 / 2854 Output Total 1750 / 1750 1750 / 1750 Balance 233 / 233 1104 / 1104 General: Awake, Alert, Oriented x 3, Cooperative, No Acute Distress HEENT: Atraumatic, Normocephalic, PERRL, EOMI, Sclera Non Icteric Oral: Moist Mucosa Neck: Supple, Good ROM, No JVD Lungs: Clear to auscultation Cardiovascular: Regular Rhythm, Normal S1, Normal S2 Vascular: No Carotid Bruits Abdomen: Bowel Sounds Present, Soft, Non Tender Extremities: No Cyanosis, Trace RLE Edema, Mild LLE Edema Neurological: No Focal Motor or Sensory Deficit 03/28/18 05:52: WBC 5.5, RBC 4.37 L, Hgb 13.2, Hct 38.9 L, MCV 89.0, MCH 30.2, MCHC 33.9, RDW 12.8, RDW Differential 41.1, Plt Count 174, MPV 9.3 03/28/18 05:52: Sodium 142, Potassium 4.1, Chloride 111 H, Carbon Dioxide 24.0, Anion Gap 7, BUN 20 H, Creatinine 1.35 H, Est GFR (MDRD) Af Amer 69, Est GFR (MDRD) Non-Af 57 L, BUN/Creatinine Ratio 14.8, Glucose 116 H, Calcium 7.8 L, Magnesium 2.1 Rhythm: Sinus rhythm/sinus bradycardia Medical Necessity - Tobacco Use Smoking Status: Former smoker Tobacco Use: Cigars, Pipe Assessment/Plan 1. Dizziness/syncope The patient presents with recurrent episodes of dizziness/syncope. He states this is been going on for quite some time (years). He states he has been evaluated at multiple institutions with multiple studies with no definitive etiology. He continues with his events. At the present time he appears to be remaining in sinus rhythm/sinus bradycardia. This is not necessarily new for him. Thus far there is been no direct correlation with his events with additional cardiac dysrhythmias or conduction system related events. There is concern as to whether or not he may have decreased intravascular volume based upon his clinical condition and elevated creatinine levels. Thus he is going to receive IV fluids. He is undergone additional noninvasive cardiovascular evaluation with transthoracic echocardiogram with the findings as noted above. He is also undergone additional noninvasive evaluation with carotid artery duplex study and brain MRI as noted above with no acute findings to explain his events. Additional information from [facility] has been received. It appears that in 2015 he underwent evaluation for similar type events. In brief, status post review of the medical records available for review, it appears that he underwent noninvasive studies including a transthoracic echocardiogram and a tilt table study. Based upon their echocardiogram is overall systolic function was reported within normal range. His tilt table study was noted to have a variety of symptoms but without syncope. He was noted to have, during his tilt table study, both hypertension and hypotension and bradycardia. He was evaluated by cardiology. According to a note it did not appear they recommended additional diagnostic studies or any therapeutic intervention based upon his noninvasive studies. It does appear that there was an attempt to decrease her [place] discontinue his beta-mark and his antiarrhythmic therapy. However there were comments of recurrent atrial dysrhythmia. Thus he was left on these medications as they were not felt to be directly contributing to his symptoms or events. His beta-blockers have been placed on hold by internal medicine. Ideally as he remains on flecainide/Tambocor he would need to be on a rate limiting medication in case he does develop an atrial dysrhythmia that could lead to dysrhythmias such as atrial flutter with one-to-one conduction. Thus, status post review of his case, at the present time he will continue beta-mark therapy and antiarrhythmic therapy. His beta-mark will be altered, as his beta-mark is not available at [facility]. The dose will be monitored with respect to his cardiac rate. He will continue his antiarrhythmic agent. Thus far there has been no other definitive cardiovascular etiology to explain his recurrent events. Again there is been concern in the past based on his outside medical records as to whether or not these may be psychogenic events. He may need to undergo further noncardiac evaluation as well with input from neurology. 2. Paroxysmal atrial fibrillation He has a remote history of paroxysmal afibrillation. Again there is been no report of recurrent events. His cardiac rate and rhythm are as noted above. Again he will resume beta-mark therapy. He will continue his antiarrhythmic therapy. Comment: The above has been discussed and reviewed with the patient. This note was generated with [employer] dictation software. It may contain incorrect words, spelling, and punctuation that were not noted in checking the note before signing.
--- NOTE | 2018-03-28 14:04 | PN.CARD_ITS ---
Subjectve: The patient denies ongoing chest discomfort or difficulty breathing. He states he has had recurrent episodes of his abrupt loss of consciousness. These episodes have been witnessed by the medical staff. During these episodes he has maintained his cardiac rate and rhythm and blood pressure. Objective: Vital Signs Temp Pulse Resp BP Pulse Ox 97.6 F L 60 16 121/60 H 96 03/28/18 10:14 03/28/18 11:00 03/28/18 10:14 03/28/18 10:14 03/28/18 10:14 Oxygen Delivery Method Room Air Weight: 288 lb 2.307 oz Body Mass Index (BMI) 42.5 Finger Stick Blood Glucose 117 Intake and Output for Last 24 Hours 03/26/18 03/27/18 03/28/18 23:59 23:59 23:59 Intake Total 1982 2854 / 2854 Output Total 1750 / 1750 1750 / 1750 Balance 233 / 233 1104 / 1104 General: Awake, Alert, Oriented x 3, Cooperative, No Acute Distress HEENT: Atraumatic, Normocephalic, PERRL, EOMI, Sclera Non Icteric Oral: Moist Mucosa Neck: Supple, Good ROM, No JVD Lungs: Clear to auscultation Cardiovascular: Regular Rhythm, Normal S1, Normal S2 Vascular: No Carotid Bruits Abdomen: Bowel Sounds Present, Soft, Non Tender Extremities: No Cyanosis, Trace RLE Edema, Mild LLE Edema Neurological: No Focal Motor or Sensory Deficit 03/28/18 05:52: WBC 5.5, RBC 4.37 L, Hgb 13.2, Hct 38.9 L, MCV 89.0, MCH 30.2, MCHC 33.9, RDW 12.8, RDW Differential 41.1, Plt Count 174, MPV 9.3 03/28/18 05:52: Sodium 142, Potassium 4.1, Chloride 111 H, Carbon Dioxide 24.0, Anion Gap 7, BUN 20 H, Creatinine 1.35 H, Est GFR (MDRD) Af Amer 69, Est GFR (MDRD) Non-Af 57 L, BUN/Creatinine Ratio 14.8, Glucose 116 H, Calcium 7.8 L, Magnesium 2.1 Rhythm: Sinus rhythm/sinus bradycardia Medical Necessity - Tobacco Use Smoking Status: Former smoker Tobacco Use: Cigars, Pipe Assessment/Plan 1. Dizziness/syncope The patient presents with recurrent episodes of dizziness/syncope. He states this is been going on for quite some time (years). He states he has been evaluated at multiple institutions with multiple studies with no definitive etiology. He continues with his events. At the present time he appears to be remaining in sinus rhythm/sinus bradycardia. This is not necessarily new for him. Thus far there is been no direct correlation with his events with additional cardiac dysrhythmias or conduction system related events. There is concern as to whether or not he may have decreased intravascular volume based upon his clinical condition and elevated creatinine levels. Thus he is going to receive IV fluids. He is undergone additional noninvasive cardiovascular evaluation with transthoracic echocardiogram with the findings as noted above. He is also unde rgone additional noninvasive evaluation with carotid artery duplex study and brain MRI as noted above with no acute findings to explain his events. Additional information from [facility] has been received. It appears that in 2014 he underwent evaluation for similar type events. In brief, status post review of the medical records available for review, it appears that he underwent noninvasive studies including a transthoracic echocardiogram and a tilt table study. Based upon their echocardiogram is overall systolic function was reported within normal range. His tilt table study was noted to have a variety of symptoms but without syncope. He was noted to have, during his tilt table study, both hypertension and hypotension and bradycardia. He was evaluated by cardiology. According to a note it did not appear they recommended additional diagnostic studies or any therapeutic intervention based upon his noninvasive studies. It does appear that there was an attempt to decrease her [place] discontinue his beta-mark and his antiarrhythmic therapy. However there were comments of recurrent atrial dysrhythmia. Thus he was left on these medications as they were not felt to be directly contributing to his symptoms or events. His beta-blockers have been placed on hold by internal medicine. Ideally as he remains on flecainide/Tambocor he would need to be on a rate limiting medication in case he does develop an atrial dysrhythmia that could lead to dysrhythmias such as atrial flutter with one-to-one conduction. Thus, status post review of his case, at the present time he will continue beta- mark therapy and antiarrhythmic therapy. His beta-mark will be altered, as his beta-mark is not available at [facility]. The dose will be monitored with respect to his cardiac rate. He will continue his antiarrhythmic agent. Thus far there has been no other definitive cardiovascular etiology to explain his recurrent events. Again there is been concern in the past based on his outside medical records as to whether or not these may be psychogenic events. He may need to undergo further noncardiac evaluation as well with input from neurology. 2. Paroxysmal atrial fibrillation He has a remote history of paroxysmal afibrillation. Again there is been no report of recurrent events. His cardiac rate and rhythm are as noted above. Again he will resume beta-mark therapy. He will continue his antiarrhythmic therapy. Comment: The above has been discussed and reviewed with the patient. This note was generated with [employer] dictation software. It may contain incorrect words, spelling, and punctuation that were not noted in checking the note before signing.
[2018-03-28 19:46] LABS: Bedside Glucose 135 mg/dL (70-110)
[2018-03-28] MEDS: Atorvastatin Calcium 40 MG Tablet PO (22:21)
[2018-03-28] MEDS: Metoprolol Tartrate 25 MG Tablet PO (22:23)
[2018-03-29] VITALS (12 sets, daily range): BP systolic 104–159; BP diastolic 61–73; PULSE 51–65; RESP 16–20; TEMP 36.4–36.9; O2SAT 94–97
[2018-03-29 00:06] LABS: Bedside Glucose 185 mg/dL (70-110)
[2018-03-29 06:40] LABS: Hematocrit 39.8 % (40-54); Hemoglobin 13.6 g/dl (13.0-16.5); Mean Corp Hgb Conc 34.2 g/gl (32-36); Mean Corpuscular Hgb 30.4 pg (27.0-32.0); Mean Corpuscular Volume 88.8 fL (80-94); Mean Platelet Vol. 8.9 fl (6.2-12.0); Platelet Count 189 K/mm3 (150-450); RBC Distribution Width CV 12.7 % (11.6-14.6); RBC Distribution Width SD 40.9 fl (35.1-43.9); Red Blood Count 4.48 M/mm3 (4.6-6.2); White Blood Count 5.6 K/mm3 (4.4-11.0)
[2018-03-29 06:43] LABS: Scan Indicated on CBC? Y/N NO
[2018-03-29] MEDS: Heparin Injection (Vial) 5,000 UNIT/ML VIAL 5000 UNIT SC ×3 (06:43→21:09)
[2018-03-29 06:51] LABS: Bedside Glucose 133 mg/dL (70-110)
[2018-03-29 07:07] LABS: Anion Gap 6 (5-15); BUN 19 mg/dL (7-18); BUN/Creat Ratio 14.4 RATIO (10-20); Calcium,Total 8.2 mg/dL (8.5-10.1); Chloride 110 mmol/L (98-107); Creatinine, Serum 1.32 mg/dL (0.70-1.30); EST Glomerular Filtration Rate 58 mL/min (>60); Est Glom Filt Rate - Afr Amer 71 mL/min (>60); Estimated Creatinine Clearance 58.02 ml/min; Glucose 127 mg/dL (74-106); Sodium Level 141 mmol/L (136-145)
--- NOTE | 2018-03-29 09:22 | PCM.PN.HOSP ---
Patient Problems: Active and Suspected Problems Dizziness (Acute) Syncope (Acute) Subjective: Seen still complains of feeling unsteady on his feet. Was seen and assessed by physical therapy the recommendation is for patient to have continuous PT. Consult subsequently placed to case management to assist with disposition possibly to a snf facility this was discussed with patient who is agreeable Patient has apparently undergone extensive workup at the [facility] including 24 EEG monitoring, tilt table test without any identifiable cause. Do suspect that patient syncopal episode could be psychogenic in origin. Awaiting case management input prior to disposition Systolic blood pressures in the low 100s this a.m. his a.m. Lopressor subsequently held Objective: GENERAL: cooperative HEENT: Atraumatic; moist oral mucosa EYES; Anicteric, Normal Conjunctiva NECK; supple, normal thyroid, no distended JVD. RESPIRATORY: Diminished to auscultation bilaterally, CARDIOVASCULAR: Regular S1 S2, no audible murmurs GI: soft, non-tender, normoactive bowel sounds, : No Renal angle tenderness; No orona EXTREMITIES: No edema, no clubbing, no cyanosis. MUSCULOSKELETAL: No Joint Tenderness; no muscle waisting NEURO: Awake; no lateralizing signs. SKIN: No Rash PSYCH; Normal affect Vitals/I&O's: Vital Signs Temp Pulse Resp BP Pulse Ox 97.5 F L 65 16 104/63 94 03/29/18 09:20 03/29/18 09:20 03/29/18 09:20 03/29/18 09:20 03/29/18 09:20 Oxygen Delivery Method Room Air Weight: 130.7 kg Body Mass Index (BMI) 42.5 Finger Stick Blood Glucose 117 Intake and Output for Last 24 Hours 03/27/18 03/28/18 03/29/18 23:59 23:59 23:59 Intake Total 1982 / 1982 3929 / 3929 800 / 800 Output Total 1750 / 1750 2500 / 2500 2075 / 2075 Balance 233 / 233 1429 / 1429 -1275 / -1275 Laboratory Results 03/28/18 09:51: POC Glucose 229 H 03/28/18 11:33: POC Glucose 150 H 03/28/18 16:24: POC Glucose 135 H 03/28/18 22:14: POC Glucose 185 H 03/29/18 06:15: WBC 5.6, RBC 4.48 L, Hgb 13.6, Hct 39.8 L, MCV 88.8, MCH 30.4, MCHC 34.2, RDW 12.7, RDW Differential 40.9, Plt Count 189, MPV 8.9 03/29/18 06:15: Sodium 141, Potassium 4.0, Chloride 110 H, Carbon Dioxide 25.0, Anion Gap 6, BUN 19 H, Creatinine 1.32 H, Estim Creat Clear Calc 58.02, Est GFR (MDRD) Af Amer 71, Est GFR (MDRD) Non-Af 58 L, BUN/Creatinine Ratio 14.4, Glucose 127 H, Calcium 8.2 L 03/29/18 06:44: POC Glucose 133 H Current Medications Acetaminophen (Tylenol) 650 mg PO Q6H PRN PRN PRN Reason: Non-cardiac pain (mod-severe) Last Admin: 03/27/18 07:10 Dose: 650 mg Aspirin (Aspirin, Baby) 81 mg PO DAILY@0800 [facility] Last Admin: 03/28/18 08:49 Dose: 81 mg Atorvastatin Calcium (Lipitor) 40 mg PO QHS [facility] Last Admin: 03/28/18 22:21 Dose: 40 mg Dextrose (D50w Syringe) 0 gm IV X1 PRN; Protocol PRN Reason: Hypoglycemia Flecainide Acetate (Tambocor) 100 mg PO BID [facility] Last Admin: 03/28/18 22:21 Dose: 100 mg Glucagon () 1 mg IM .X1 PRN PRN Reason: Hypoglycemia Heparin Sodium (Porcine) (Heparin Na) 5,000 unit SC Q8 [facility] Last Admin: 03/29/18 06:43 Dose: 5,000 unit Insulin Human Lispro (Humalog Kwikpen (Bkc)) 0 unit SQ ACHS [facility], [facility]; Protocol Last Admin: 03/29/18 06:45 Dose: Not Given Magnesium Hydroxide (Milk Of Magnesia) 30 ml PO DAILY PRN PRN PRN Reason: Constipation Metoprolol Tartrate (Lopressor (Beta Dalton)) 25 mg PO BID [facility] Last Admin: 03/28/18 22:23 Dose: 25 mg Pantoprazole Sodium (Protonix) 40 mg PO BID [facility] Last Admin: 03/28/18 22:21 Dose: 40 mg Sertraline HCl (Zoloft) 50 mg PO DAILY [facility] Last Admin: 03/28/18 08:51 Dose: 50 mg Medical Necessity - Tobacco Use Smoking Status: Former smoker Tobacco Use: Cigars, Pipe Assessment/Plan All Active Problems Dizziness (Acute) Syncope (Acute) Abdominal pain (Acute) Patient is a 62-year-old gentleman admitted with dizziness (which he described as a spinning sensation) followed by series of syncopal episode patient admitted to a monitored bed for subsequent evaluation. Underwent subsequent evaluation with MRI which was negative for acute CVA 1. Acute vertigo etiology not clear MRI was negative for posterior circulation CVA 2. Recurrent syncopal episode patient has been admitted to a monitored bed undergoing continuous telemetry monitoring. Serial cardiac enzymes have remained negative to date 2D echo ordered. Telemetry monitoring did reveal relative bradycardia patient beta-blockers held in consultation placed to cardiology patient was seen by Dr. Joshi he is noted recommendations reviewed. Patient has apparently undergone extensive workup at the [facility] including 24 EEG monitoring, tilt table test without any identifiable cause. Do suspect that patient syncopal episode could be psychogenic in origin. Awaiting case management input prior to disposition 3. Paroxysmal A. fib patient is in sinus rhythm on both beta blockers as well as flecainide 4. Hypertension-blood pressure controlled, home medications except for acebutolol continued with dose adjustment as needed 5. Diabetes mellitus type 2 on metformin held in view of impaired kidney function. Please and Accu-Cheks before meals and at bedtime with sliding scale insulin 6. Dyslipidemia; patient is on simvastatin and switch to atorvastatin 7. Morbid obesity with BMI of 42.6 8. Acute kidney injury potential nephrotoxic medications held on fluids with monitoring of electrolytes 9. DVT prophylaxis SC heparin Code status: full code Code Visit OBSV E&M: 94748 Subsequent observation care L3
--- NOTE | 2018-03-29 09:25 | PN_ITS ---
Patient Problems: Active and Suspected Problems Dizziness (Acute) Syncope (Acute) Subjective: Seen still complains of feeling unsteady on his feet. Was seen and assessed by physical therapy the recommendation is for patient to have continuous PT. Consult subsequently placed to case management to assist with disposition possibly to a fpc facility this was discussed with patient who is agreeable Patient has apparently undergone extensive workup at the [facility] including 24 EEG monitoring, tilt table test without any identifiable cause. Do suspect that patient syncopal episode could be psychogenic in origin. Awaiting case management input prior to disposition Systolic blood pressures in the low 100s this a.m. his a.m. Lopressor subsequently held Objective: GENERAL: cooperative HEENT: Atraumatic; moist oral mucosa EYES; Anicteric, Normal Conjunctiva NECK; supple, normal thyroid, no distended JVD. RESPIRATORY: Diminished to auscultation bilaterally, CARDIOVASCULAR: Regular S1 S2, no audible murmurs GI: soft, non-tender, normoactive bowel sounds, : No Renal angle tenderness; No orona EXTREMITIES: No edema, no clubbing, no cyanosis. MUSCULOSKELETAL: No Joint Tenderness; no muscle waisting NEURO: Awake; no lateralizing signs. SKIN: No Rash PSYCH; Normal affect Vitals/I&O's: Vital Signs Temp Pulse Resp BP Pulse Ox 97.5 F L 65 16 104/63 94 03/29/18 09:20 03/29/18 09:20 03/29/18 09:20 03/29/18 09:20 03/29/18 09:20 Oxygen Delivery Method Room Air Weight: 130.7 kg Body Mass Index (BMI) 42.5 Finger Stick Blood Glucose 117 Intake and Output for Last 24 Hours 03/27/18 03/28/18 03/29/18 23:59 23:59 23:59 Intake Total 1982 / 1982 3929 / 3929 800 / 800 Output Total 1750 / 1750 2500 / 2500 2075 / 2075 Balance 233 / 233 1429 / 1429 -1275 / -1275 Laboratory Results 03/28/18 09:51: POC Glucose 229 H 03/28/18 11:33: POC Glucose 150 H 03/28/18 16:24: POC Glucose 135 H 03/28/18 22:14: POC Glucose 185 H 03/29/18 06:15: WBC 5.6, RBC 4.48 L, Hgb 13.6, Hct 39.8 L, MCV 88.8, MCH 30.4, MCHC 34.2, RDW 12.7, RDW Differential 40.9, Plt Count 189, MPV 8.9 03/29/18 06:15: Sodium 141, Potassium 4.0, Chloride 110 H, Carbon Dioxide 25.0, Anion Gap 6, BUN 19 H, Creatinine 1.32 H, Estim Creat Clear Calc 58.02, Est GFR (MDRD) Af Amer 71, Est GFR (MDRD) Non-Af 58 L, BUN/Creatinine Ratio 14.4, Glucose 127 H, Calcium 8.2 L 03/29/18 06:44: POC Glucose 133 H Current Medications Acetaminophen (Tylenol) 650 mg PO Q6H PRN PRN PRN Reason: Non-cardiac pain (mod-severe) Last Admin: 03/27/18 07:10 Dose: 650 mg Aspirin (Aspirin, Baby) 81 mg PO DAILY@0800 [facility] Last Admin: 03/28/18 08:49 Dose: 81 mg Atorvastatin Calcium (Lipitor) 40 mg PO QHS [facility] Last Admin: 03/28/18 22:21 Dose: 40 mg Dextrose (D50w Syringe) 0 gm IV X1 PRN; Protocol PRN Reason: Hypoglycemia Flecainide Acetate (Tambocor) 100 mg PO BID [facility] Last Admin: 03/28/18 22:21 Dose: 100 mg Glucagon () 1 mg IM .X1 PRN PRN Reason: Hypoglycemia Heparin Sodium (Porcine) (Heparin Na) 5,000 unit SC Q8 [facility] Last Admin: 03/29/18 06:43 Dose: 5,000 unit Insulin Human Lispro (Humalog Kwikpen (Bkc)) 0 unit SQ ACHS [facility]; Protocol Last Admin: 03/29/18 06:45 Dose: Not Given Magnesium Hydroxide (Milk Of Magnesia) 30 ml PO DAILY PRN PRN PRN Reason: Constipation Metoprolol Tartrate (Lopressor (Beta Dalton)) 25 mg PO BID [facility] Last Admin: 03/28/18 22:23 Dose: 25 mg Pantoprazole Sodium (Protonix) 40 mg PO BID [facility] Last Admin: 03/28/18 22:21 Dose: 40 mg Sertraline HCl (Zoloft) 50 mg PO DAILY [facility] Last Admin: 03/28/18 08:51 Dose: 50 mg Medical Necessity - Tobacco Use Smoking Status: Former smoker Tobacco Use: Cigars, Pipe Assessment/Plan All Active Problems Dizziness (Acute) Syncope (Acute) Abdominal pain (Acute) Patient is a 62-year-old gentleman admitted with dizziness (which he described as a spinning sensation) followed by series of syncopal episode patient admitted to a monitored bed for subsequent evaluation. Underwent subsequent evaluation with MRI which was negative for acute CVA 1. Acute vertigo etiology not clear MRI was negative for posterior circulation CVA 2. Recurrent syncopal episode patient has been admitted to a monitored bed undergoing continuous telemetry monitoring. Serial cardiac enzymes have remained negative to date 2D echo ordered. Telemetry monitoring did reveal relative bradycardia patient beta-blockers held in consultation placed to cardiology patient was seen by Dr. Joshi he is noted recommendations reviewed. Patient has apparently undergone extensive workup at the [facility] including 24 EEG monitoring, tilt table test without any identifiable cause. Do suspect that patient syncopal episode could be psychogenic in origin. Awaiting case management input prior to disposition 3. Paroxysmal A. fib patient is in sinus rhythm on both beta blockers as well as flecainide 4. Hypertension-blood pressure controlled, home medications except for acebutolol continued with dose adjustment as needed 5. Diabetes mellitus type 2 on metformin held in view of impaired kidney function. Please and Accu-Cheks before meals and at bedtime with sliding scale insulin 6. Dyslipidemia; patient is on simvastatin and switch to atorvastatin 7. Morbid obesity with BMI of 42.6 8. Acute kidney injury potential nephrotoxic medications held on fluids with monitoring of electrolytes 9. DVT prophylaxis SC heparin Code status: full code Code Visit OBSV E&M: 11416 Subsequent observation care L3
[2018-03-29] MEDS: Pantoprazole Sodium 40 MG Tablet PO ×2 (09:29→21:09)
[2018-03-29] MEDS: Aspirin 81 MG TAB.CHEW PO (09:29)
[2018-03-29] MEDS: Flecainide 100 MG Tablet PO ×2 (09:29→21:09)
[2018-03-29] MEDS: Sertraline 50 MG Tablet PO (09:29)
[2018-03-29] MEDS: Insulin Lispro 100 UNIT/ML INSULN.PEN SQ ×2 (11:23→17:37)
[2018-03-29 11:36] LABS: Bedside Glucose 176 mg/dL (70-110)
--- NOTE | 2018-03-29 11:57 | PCM.PN.CARD ---
Subjectve: The patient denies any ongoing palpitations, chest discomfort, or difficulty breathing. He states he has had recurrent loss of consciousness events that have been witnessed by the medical staff/physician staff. During these events the patient has remained in sinus rhythm with no significant change of his rate and no significant change with respect to his blood pressure. Objective: Vital Signs Temp Pulse Resp BP Pulse Ox 97.5 F L 56 L 16 104/63 94 03/29/18 09:20 03/29/18 11:01 03/29/18 09:20 03/29/18 09:29 03/29/18 09:20 Oxygen Delivery Method Room Air Weight: 288 lb 2.307 oz Body Mass Index (BMI) 42.5 Finger Stick Blood Glucose 117 Intake and Output for Last 24 Hours 03/27/18 03/28/18 03/29/18 23:59 23:59 23:59 Intake Total 1982 / 1982 3929 / 3929 1160 / 1160 Output Total 1750 / 1750 2500 / 2500 2475 / 2475 Balance 233 / 233 1429 / 1429 -1315 / -1315 General: Awake, Alert, Oriented x 3, Cooperative, No Acute Distress HEENT: Atraumatic, Normocephalic, PERRL, EOMI, Sclera Non Icteric Oral: Moist Mucosa Neck: Supple, Good ROM, No JVD Lungs: Clear to auscultation Cardiovascular: Regular Rhythm, Normal S1, Normal S2 Vascular: No Carotid Bruits Abdomen: Bowel Sounds Present, Soft, Non Tender Extremities: Trace RLE Edema, Mild LLE Edema Neurological: No Focal Motor or Sensory Deficit Psych/Mental Status: Appropriate, Normal Affect 03/29/18 06:15: WBC 5.6, RBC 4.48 L, Hgb 13.6, Hct 39.8 L, MCV 88.8, MCH 30.4, MCHC 34.2, RDW 12.7, RDW Differential 40.9, Plt Count 189, MPV 8.9 03/29/18 06:15: Sodium 141, Potassium 4.0, Chloride 110 H, Carbon Dioxide 25.0, Anion Gap 6, BUN 19 H, Creatinine 1.32 H, Est GFR (MDRD) Af Amer 71, Est GFR (MDRD) Non-Af 58 L, BUN/Creatinine Ratio 14.4, Glucose 127 H, Calcium 8.2 L Rhythm: Sinus rhythm/sinus bradycardia Medical Necessity - Tobacco Use Smoking Status: Former smoker Tobacco Use: Cigars, Pipe Assessment/Plan 1. Dizziness/syncope The patient presents with recurrent episodes of dizziness/syncope. He states this is been going on for quite some time (years). He states he has been evaluated at multiple institutions with multiple studies with no definitive etiology. He continues with his events. At the present time he appears to be remaining in sinus rhythm/sinus bradycardia. This is not necessarily new for him. Thus far there is been no direct correlation with his events with additional cardiac dysrhythmias or conduction system related events. He is undergone additional noninvasive cardiovascular evaluation with transthoracic echocardiogram with the findings as noted above. He is also undergone additional noninvasive evaluation with carotid artery duplex study and brain MRI as noted above with no acute findings to explain his events. Additional information from [facility] has been received. It appears that in 2014 he underwent evaluation for similar type events. In brief, status post review of the medical records available for review, it appears that he underwent noninvasive studies including a transthoracic echocardiogram and a tilt table study. Based upon their echocardiogram is overall systolic function was reported within normal range. His tilt table study was noted to have a variety of symptoms but without syncope. He was noted to have, during his tilt table study, both hypertension and hypotension and bradycardia. He was evaluated by cardiology. According to a note it did not appear they recommended additional diagnostic studies or any therapeutic intervention based upon his noninvasive studies. It does appear that there was an attempt to decrease and discontinue his beta-mark and his antiarrhythmic therapy. However there were comments of recurrent atrial dysrhythmia. Thus he was left on these medications as they were not felt to be directly contributing to his symptoms or events. As he has had no direct correlation with respect to his events in his underlying rate or rhythm it is been elected to continue his beta-mark therapy and his antiarrhythmic therapy. Thus, status post review of his case, at the present time he will continue beta-mark therapy and antiarrhythmic therapy. His beta-mark will be altered, as his beta-mark is not available at [facility]. The dose will be monitored with respect to his cardiac rate. He will continue his antiarrhythmic agent. Thus far there has been no other definitive cardiovascular etiology to explain his recurrent events. Again there is been concern in the past based on his outside medical records as to whether or not these may be psychogenic events. At the present time there are no immediate plans for additional cardiovascular diagnostic studies. He may need to undergo further noncardiac evaluation as well with input from neurology. 2. Paroxysmal atrial fibrillation He has a remote history of paroxysmal afibrillation. Again there is been no report of recurrent events. His cardiac rate and rhythm are as noted above. Again he will resume beta-mark therapy. He will continue his antiarrhythmic therapy. Comment: The above has been discussed and reviewed with the patient and Dr. Trinidad. This note was generated with [employer] software. It may contain incorrect words, spelling, and punctuation that were not noted in checking the note before signing.
--- NOTE | 2018-03-29 12:01 | PN.CARD_ITS ---
Subjectve: The patient denies any ongoing palpitations, chest discomfort, or difficulty breathing. He states he has had recurrent loss of consciousness events that have been witnessed by the medical staff/physician staff. During these events the patient has remained in sinus rhythm with no significant change of his rate and no significant change with respect to his blood pressure. Objective: Vital Signs Temp Pulse Resp BP Pulse Ox 97.5 F L 56 L 16 104/63 94 03/29/18 09:20 03/29/18 11:01 03/29/18 09:20 03/29/18 09:29 03/29/18 09:20 Oxygen Delivery Method Room Air Weight: 288 lb 2.307 oz Body Mass Index (BMI) 42.5 Finger Stick Blood Glucose 117 Intake and Output for Last 24 Hours 03/27/18 03/28/18 03/29/18 23:59 23:59 23:59 Intake Total 1982 / 1982 3929 / 3929 1160 / 1160 Output Total 1750 / 1750 2500 / 2500 2475 / 2475 Balance 233 / 233 1429 / 1429 -1315 / -1315 General: Awake, Alert, Oriented x 3, Cooperative, No Acute Distress HEENT: Atraumatic, Normocephalic, PERRL, EOMI, Sclera Non Icteric Oral: Moist Mucosa Neck: Supple, Good ROM, No JVD Lungs: Clear to auscultation Cardiovascular: Regular Rhythm, Normal S1, Normal S2 Vascular: No Carotid Bruits Abdomen: Bowel Sounds Present, Soft, Non Tender Extremities: Trace RLE Edema, Mild LLE Edema Neurological: No Focal Motor or Sensory Deficit Psych/Mental Status: Appropriate, Normal Affect 03/29/18 06:15: WBC 5.6, RBC 4.48 L, Hgb 13.6, Hct 39.8 L, MCV 88.8, MCH 30.4, MCHC 34.2, RDW 12.7, RDW Differential 40.9, Plt Count 189, MPV 8.9 03/29/18 06:15: Sodium 141, Potassium 4.0, Chloride 110 H, Carbon Dioxide 25.0, Anion Gap 6, BUN 19 H, Creatinine 1.32 H, Est GFR (MDRD) Af Amer 71, Est GFR (MDRD) Non-Af 58 L, BUN/Creatinine Ratio 14.4, Glucose 127 H, Calcium 8.2 L Rhythm: Sinus rhythm/sinus bradycardia Medical Necessity - Tobacco Use Smoking Status: Former smoker Tobacco Use: Cigars, Pipe Assessment/Plan 1. Dizziness/syncope The patient presents with recurrent episodes of dizziness/syncope. He states this is been going on for quite some time (years). He states he has been evaluated at multiple institutions with multiple studies with no definitive etiology. He continues with his events. At the present time he appears to be remaining in sinus rhythm/sinus bradycardia. This is not necessarily new for him. Thus far there is been no direct correlation with his events with additional cardiac dysrhythmias or conduction system related events. He is undergone additional noninvasive cardiovascular evaluation with transthoracic echocardiogram with the findings as noted above. He is also undergone additional noninvasive evaluation with carotid artery duplex study and brain MRI as noted above with no acute findings to explain his events. Additional information from [facility] has been received. It appears that in 2014 he underwent evaluation for similar type events. In brief, status post review of the medical records available for review, it appears that he underwent noninvasive studies including a transthoracic echocardiogram and a tilt table study. Based upon their echocardiogram is overall systolic function was reported within normal range. His tilt table study was noted to have a variety of symptoms but without syncope. He was noted to have, during his tilt table study, both hypertension and hypotension and bradycardia. He was evaluated by cardiology. According to a note it did not appear they recommended additional diagnostic studies or any therapeutic intervention based upon his noninvasive studies. It does appear that there was an attempt to decrease and discontinue his beta- mark and his antiarrhythmic therapy. However there were comments of recurrent atrial dysrhythmia. Thus he was left on these medications as they were not felt to be directly contributing to his symptoms or events. As he has had no direct correlation with respect to his events in his underlying rate or rhythm it is been elected to continue his beta-mark therapy and his antiarrhythmic therapy. Thus, status post review of his case, at the present time he will continue beta- mark therapy and antiarrhythmic therapy. His beta-mark will be altered, as his beta-mark is not available at [facility]. The dose will be monitored with respect to his cardiac rate. He will continue his antiarrhythmic agent. Thus far there has been no other definitive cardiovascular etiology to explain his recurrent events. Again there is been concern in the past based on his outside medical records as to whether or not these may be psychogenic events. At the present time there are no immediate plans for additional cardiovascular diagnostic studies. He may need to undergo further noncardiac evaluation as well with input from neurology. 2. Paroxysmal atrial fibrillation He has a remote history of paroxysmal afibrillation. Again there is been no report of recurrent events. His cardiac rate and rhythm are as noted above. Again he will resume beta-mark therapy. He will continue his antiarrhythmic therapy. Comment: The above has been discussed and reviewed with the patient and Dr. Trinidad. This note was generated with [employer] software. It may contain incorrect words, spelling, and punctuation that were not noted in checking the note before signing.
--- NOTE | 2018-03-29 13:24 | PCM.PN.BLA ---
Progress Note Had a discussion with patient and family one more regarding his current condition. Did express to form the patient's symptoms could be psychogenic in origin and plan will be for patient to follow-up with Dr. Moon on discharge to be referred to be seen by a psychiatrist.
[2018-03-29 18:41] LABS: Bedside Glucose 173 mg/dL (70-110)
[2018-03-29] MEDS: Metoprolol Tartrate 25 MG Tablet PO (21:09)
[2018-03-29] MEDS: Atorvastatin Calcium 40 MG Tablet PO (21:09)
[2018-03-29 22:21] LABS: Bedside Glucose 138 mg/dL (70-110)
[2018-03-30] VITALS (12 sets, daily range): BP systolic 124–141; BP diastolic 60–81; PULSE 50–65; RESP 16; TEMP 36.1–37; O2SAT 96–98
[2018-03-30] MEDS: Heparin Injection (Vial) 5,000 UNIT/ML VIAL 5000 UNIT SC ×3 (06:19→21:35)
[2018-03-30 06:46] LABS: Bedside Glucose 128 mg/dL (70-110)
[2018-03-30 07:01] LABS: Anion Gap 8 (5-15); BUN 24 mg/dL (7-18); BUN/Creat Ratio 17.5 RATIO (10-20); Calcium,Total 8.5 mg/dL (8.5-10.1); Chloride 109 mmol/L (98-107); Creatinine, Serum 1.37 mg/dL (0.70-1.30); EST Glomerular Filtration Rate 56 mL/min (>60); Est Glom Filt Rate - Afr Amer 68 mL/min (>60); Estimated Creatinine Clearance 55.91 ml/min; Glucose 122 mg/dL (74-106); Sodium Level 143 mmol/L (136-145)
[2018-03-30] MEDS: Flecainide 100 MG Tablet PO ×2 (09:18→21:36)
[2018-03-30] MEDS: Sertraline 50 MG Tablet PO (09:18)
[2018-03-30] MEDS: Pantoprazole Sodium 40 MG Tablet PO ×2 (09:18→21:36)
[2018-03-30] MEDS: Aspirin 81 MG TAB.CHEW PO (09:18)
[2018-03-30] MEDS: Metoprolol Tartrate 25 MG Tablet PO ×2 (09:20→21:36)
--- NOTE | 2018-03-30 10:57 | CASEMGMT ---
BERNARD spoke with patient and asked him about where he would like to go to for rehab. He asked SW to call his friend, Akil. SW called Akil and spoke with him. He said [facility] would be their first choice for patient. He said if that did not work out they prefer a place in [place]. They do not want [facility]. BERNARD called [facility] and they are not in network with patient's insurance. BERNARD faxed a referral to [facility]. aLy RUIZ MSW
[2018-03-30] MEDS: Insulin Lispro 100 UNIT/ML INSULN.PEN SQ (11:19)
[2018-03-30 11:35] LABS: Bedside Glucose 207 mg/dL (70-110)
--- NOTE | 2018-03-30 14:01 | CASEMGMT ---
Addendum entered by Lay Villegas 03/30/18 15:01: BERNARD received a call from Mr Lujan and he was in agreement with the plan. He just asked that SW keep him informed. Plan: [facility] pending insurance approval. Lay BRENNAN Original Note: BERNARD heard from Shruthi at [facility] and they will take patient and she will start the pre-cert. BERNARD let patient know this information and about conversation with Mr Lujan. He was in agreement with going to [facility]. BERNARD called Mr Lujan and left him a voice mail letting him know above and also left return phone number. Plan: [facility] pending insurance approval. Lay BRENNAN
[2018-03-30 16:21] LABS: Bedside Glucose 131 mg/dL (70-110)
--- NOTE | 2018-03-30 16:54 | PN_ITS ---
Patient Problems: Active and Suspected Problems Dizziness (Acute) Syncope (Acute) Subjective: Patient was in and examined. No acute events overnight. Ambulated with therapy and felt slightly dizzy. Denies any chest pain Waiting on insurance precertification for discharge. Vitals/I&O's: Vital Signs Temp Pulse Resp BP Pulse Ox 98.6 F 54 L 16 128/60 H 96 03/30/18 15:00 03/30/18 15:00 03/30/18 15:00 03/30/18 15:00 03/30/18 15:00 Oxygen Delivery Method Room Air Weight: 130.7 kg Body Mass Index (BMI) 42.5 Finger Stick Blood Glucose 117 Intake and Output for Last 24 Hours 03/28/18 03/29/18 03/30/18 23:59 23:59 23:59 Intake Total 3929 / 3929 1620 / 1620 680 / 680 Output Total 2500 / 2500 3325 / 3325 1575 / 1575 Balance 1429 / 1429 -1705 / -1705 -895 / -895 General: Alert, Oriented x3, Cooperative, No apparent distress HEENT: Atraumatic, PERRLA, EOMI, Normocephalic Oral: Moist Mucosa Neck: Supple, No JVD, Negative Carotid Bruits Lungs: Clear to auscultation, Normal air movement Cardiovascular: Regular rate, No murmurs Abdomen: Bowel Sounds Present, Soft, Non Tender, Non-Distended, No Hepato- splenomegaly Extremities: No edema, Capillary Refill Less than 3 Seconds Skin: No rashes, No breakdown Musculoskeletal: No Tenderness to Palpation of Joints or Extremities Lymphatic: No Cervical, Supraclavicular, or Inguinal Adenopathy Neurological: Cranial nerves II-XII grossly intact Psych/Mental Status: Normal Affect, Appropriate Laboratory Results 03/29/18 17:35: POC Glucose 173 H 03/29/18 21:08: POC Glucose 138 H 03/30/18 06:00: Sodium 143, Potassium 4.0, Chloride 109 H, Carbon Dioxide 26.0, Anion Gap 8, BUN 24 H, Creatinine 1.37 H, Estim Creat Clear Calc 55.91, Est GFR (MDRD) Af Amer 68, Est GFR (MDRD) Non-Af 56 L, BUN/Creatinine Ratio 17.5, Glucose 122 H, Calcium 8.5 03/30/18 06:22: POC Glucose 128 H 03/30/18 11:15: POC Glucose 207 H 03/30/18 16:12: POC Glucose 131 H Current Medications Acetaminophen (Tylenol) 650 mg PO Q6H PRN PRN PRN Reason: Non-cardiac pain (mod-severe) Last Admin: 03/27/18 07:10 Dose: 650 mg Aspirin (Aspirin, Baby) 81 mg PO DAILY@0800 [facility] Last Admin: 03/30/18 09:18 Dose: 81 mg Atorvastatin Calcium (Lipitor) 40 mg PO QHS [facility] Last Admin: 03/29/18 21:09 Dose: 40 mg Dextrose (D50w Syringe) 0 gm IV X1 PRN; Protocol PRN Reason: Hypoglycemia Flecainide Acetate (Tambocor) 100 mg PO BID [facility] Last Admin: 03/30/18 09:18 Dose: 100 mg Glucagon () 1 mg IM .X1 PRN PRN Reason: Hypoglycemia Heparin Sodium (Porcine) (Heparin Na) 5,000 unit SC Q8 [facility] Last Admin: 03/30/18 14:45 Dose: 5,000 unit Insulin Human Lispro (Humalog Kwikpen (Bkc)) 0 unit SQ ACHS [facility]; Protocol Last Admin: 03/30/18 16:16 Dose: Not Given Magnesium Hydroxide (Milk Of Magnesia) 30 ml PO DAILY PRN PRN PRN Reason: Constipation Metoprolol Tartrate (Lopressor (Beta Dalton)) 25 mg PO BID [facility] Last Admin: 03/30/18 09:20 Dose: 25 mg Pantoprazole Sodium (Protonix) 40 mg PO BID [facility] Last Admin: 03/30/18 09:18 Dose: 40 mg Sertraline HCl (Zoloft) 50 mg PO DAILY [facility] Last Admin: 03/30/18 09:18 Dose: 50 mg Medical Necessity - Tobacco Use Smoking Status: Former smoker Tobacco Use: Cigars, Pipe Assessment/Plan All Active Problems Dizziness (Acute) Syncope (Acute) Abdominal pain (Acute) 62-year-old gentleman admitted with dizziness followed by series of syncopal episode. MRI brain has been negative for acute CVA 1. Acute vertigo, unclear etiology, MRI was negative for posterior circulation CVA, improved 2. Recurrent syncopal episode, Patient has apparently undergone extensive workup at the [facility] including 24 EEG monitoring, tilt table test without any identifiable cause. 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 3. Paroxysmal A. fib, in NSR, on flecainide, Q 4. Hypertension, controlled, continue with medications 5. Diabetes mellitus type 2, blood sugars are fairly controlled, will continue with Accu-Cheks and insulin sliding scale, resume metformin from tomorrow 6. Dyslipidemia, on atorvastatin 7. Morbid obesity with BMI of 42.6 8. Acute kidney injury on CKD stage 3, creatinine remains the same, likely his baseline 9. DVT prophylaxis with heparin subcu 10. Disposition: [facility] is pending. Code Visit Inpatient E&M: 74209 Subs Hosp L2
[2018-03-30] MEDS: Atorvastatin Calcium 40 MG Tablet PO (21:35)
[2018-03-30 21:45] LABS: Bedside Glucose 144 mg/dL (70-110)
[2018-03-31] VITALS (12 sets, daily range): BP systolic 110–136; BP diastolic 61–75; PULSE 47–63; RESP 15–16; TEMP 36.1–36.7; O2SAT 97–98
[2018-03-31] MEDS: Heparin Injection (Vial) 5,000 UNIT/ML VIAL 5000 UNIT SC ×3 (06:57→21:26)
[2018-03-31 07:06] LABS: Bedside Glucose 124 mg/dL (70-110)
[2018-03-31] MEDS: Aspirin 81 MG TAB.CHEW PO (08:31)
--- NOTE | 2018-03-31 10:31 | PCM.PN.HOSP ---
Patient Problems: Active and Suspected Problems Dizziness (Acute) Syncope (Acute) Subjective: Patient was seen and examined. Had recurrent episodes of syncopal events starting from ambulation with therapy. No telemetry events corresponded. No orthostatic vitals was sought. Objective: Physical exam: General: Alert, Oriented x3, Cooperative, No apparent distress HEENT: Atraumatic, PERRLA, EOMI, Normocephalic Oral: Moist Mucosa Neck: Supple, No JVD, Negative Carotid Bruits Lungs: Clear to auscultation, Normal air movement Cardiovascular: Regular rate, No murmurs Abdomen: Bowel Sounds Present, Soft, Non Tender, Non-Distended, No Hepato-splenomegaly Extremities: No edema, Capillary Refill Less than 3 Seconds Skin: No rashes, No breakdown Musculoskeletal: No Tenderness to Palpation of Joints or Extremities Lymphatic: No Cervical, Supraclavicular, or Inguinal Adenopathy Neurological: Cranial nerves II-XII grossly intact Psych/Mental Status: Normal Affect, Appropriate Vitals/I&O's: Vital Signs Temp Pulse Resp BP Pulse Ox 97.5 F L 53 L 15 126/67 H 98 03/31/18 08:34 03/31/18 08:34 03/31/18 08:34 03/31/18 08:34 03/31/18 08:34 Oxygen Delivery Method Room Air Weight: 130.7 kg Body Mass Index (BMI) 42.5 Finger Stick Blood Glucose 117 Intake and Output for Last 24 Hours 03/29/18 03/30/18 03/31/18 23:59 23:59 23:59 Intake Total 1620 / 1620 1160 / 1160 500 / 500 Output Total 3325 / 3325 1900 / 1900 1225 / 1225 Balance -1705 / -1705 -740 / -740 -725 / -725 Laboratory Results 03/30/18 11:15: POC Glucose 207 H 03/30/18 16:12: POC Glucose 131 H 03/30/18 21:34: POC Glucose 144 H 03/31/18 06:56: POC Glucose 124 H Current Medications Acetaminophen (Tylenol) 650 mg PO Q6H PRN PRN PRN Reason: Non-cardiac pain (mod-severe) Last Admin: 03/27/18 07:10 Dose: 650 mg Aspirin (Aspirin, Baby) 81 mg PO DAILY@0800 [facility] Last Admin: 03/31/18 08:31 Dose: 81 mg Atorvastatin Calcium (Lipitor) 40 mg PO QHS [facility] Last Admin: 03/30/18 21:35 Dose: 40 mg Dextrose (D50w Syringe) 0 gm IV X1 PRN; Protocol PRN Reason: Hypoglycemia Flecainide Acetate (Tambocor) 100 mg PO BID [facility] Last Admin: 03/30/18 21:36 Dose: 100 mg Glucagon () 1 mg IM .X1 PRN PRN Reason: Hypoglycemia Heparin Sodium (Porcine) (Heparin Na) 5,000 unit SC Q8 [facility] Last Admin: 03/31/18 06:57 Dose: 5,000 unit Insulin Human Lispro (Humalog Kwikpen (Bkc)) 0 unit SQ ACHS [facility]; Protocol Last Admin: 03/31/18 06:57 Dose: Not Given Magnesium Hydroxide (Milk Of Magnesia) 30 ml PO DAILY PRN PRN PRN Reason: Constipation Metoprolol Tartrate (Lopressor (Beta Dalton)) 25 mg PO BID [facility] Last Admin: 03/30/18 21:36 Dose: 25 mg Pantoprazole Sodium (Protonix) 40 mg PO BID [facility] Last Admin: 03/30/18 21:36 Dose: 40 mg Sertraline HCl (Zoloft) 50 mg PO DAILY [facility] Last Admin: 03/30/18 09:18 Dose: 50 mg Medical Necessity - Tobacco Use Smoking Status: Former smoker Tobacco Use: Cigars, Pipe Assessment/Plan All Active Problems Dizziness (Acute) Syncope (Acute) Abdominal pain (Acute) 62-year-old gentleman admitted with dizziness followed by series of syncopal episode. MRI brain has been negative for acute CVA 1. Acute vertigo, unclear etiology, MRI was negative for posterior circulation CVA, improved 2. 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 including 24 EEG monitoring, tilt table test without any identifiable cause. 3. Paroxysmal A. fib, in NSR, on flecainide, metoprolol 4. Hypertension, controlled, continue with medications 5. Diabetes mellitus type 2, blood sugars are fairly controlled, will continue with Accu-Cheks and insulin sliding scale, resume metformin from tomorrow 6. Dyslipidemia, on atorvastatin 7. Morbid obesity with BMI of 42.6 8. Acute kidney injury on CKD stage 3, creatinine remains the same, likely his baseline 9. DVT prophylaxis with heparin subcu 10. Disposition: Insurance precertification for discharge to [facility] facility is pending. Code Visit Inpatient E&M: 76533 Subs Hosp L2
[2018-03-31] MEDS: Sertraline 50 MG Tablet PO (11:00)
[2018-03-31] MEDS: Pantoprazole Sodium 40 MG Tablet PO ×2 (11:00→21:27)
[2018-03-31] MEDS: Insulin Lispro 100 UNIT/ML INSULN.PEN SQ ×2 (11:07→21:26)
[2018-03-31 11:15] LABS: Bedside Glucose 211 mg/dL (70-110)
--- NOTE | 2018-03-31 11:26 | NURSING ---
therapy was working with patient was intermittently unresponsive. staff assist called by therapy patient responded to staff with stimulation. md arrived to room patient had a couple episodes witnessed by md. he will be talking then nstop talking and become unresponsive then will respond to staff sternal rub/stimulation. bp 136/66 p58 o2 sat 100% on ra
[2018-03-31] MEDS: 0.9% Normal Saline 1,000 ML 100 ML IV (11:33)
[2018-03-31 11:41] LABS: Bedside Glucose 207 mg/dL (70-110)
[2018-03-31 18:21] LABS: Bedside Glucose 139 mg/dL (70-110)
[2018-03-31] MEDS: Atorvastatin Calcium 40 MG Tablet PO (21:27)
[2018-03-31 23:35] LABS: Bedside Glucose 178 mg/dL (70-110)
[2018-04-01] VITALS (13 sets, daily range): BP systolic 121–126; BP diastolic 56–67; PULSE 51–74; RESP 16; TEMP 36.4–36.7; O2SAT 96–99
[2018-04-01] MEDS: 0.9% Normal Saline 1,000 ML 100 ML IV ×3 (00:20→21:11)
[2018-04-01] MEDS: Heparin Injection (Vial) 5,000 UNIT/ML VIAL 5000 UNIT SC ×3 (05:37→21:11)
[2018-04-01 06:52] LABS: Anion Gap 7 (5-15); BUN 23 mg/dL (7-18); BUN/Creat Ratio 18.5 RATIO (10-20); Calcium,Total 8.1 mg/dL (8.5-10.1); Chloride 111 mmol/L (98-107); Creatinine, Serum 1.24 mg/dL (0.70-1.30); EST Glomerular Filtration Rate 63 mL/min (>60); Est Glom Filt Rate - Afr Amer 76 mL/min (>60); Estimated Creatinine Clearance 61.77 ml/min; Glucose 133 mg/dL (74-106); Sodium Level 142 mmol/L (136-145)
[2018-04-01 07:00] LABS: Bedside Glucose 133 mg/dL (70-110)
[2018-04-01] MEDS: Aspirin 81 MG TAB.CHEW PO (10:03)
[2018-04-01] MEDS: Pantoprazole Sodium 40 MG Tablet PO ×2 (10:03→21:13)
[2018-04-01] MEDS: Sertraline 50 MG Tablet PO (10:03)
--- NOTE | 2018-04-01 11:17 | PCM.PN.HOSP ---
Patient Problems: Active and Suspected Problems Dizziness (Acute) Syncope (Acute) Subjective: Patient was seen and examined. No new complaints. Still waiting on insurance precertification for discharge. Objective: Physical exam: General: Alert, Oriented x3, Cooperative, No apparent distress HEENT: Atraumatic, PERRLA, EOMI, Normocephalic Oral: Moist Mucosa Neck: Supple, No JVD, Negative Carotid Bruits Lungs: Clear to auscultation, Normal air movement Cardiovascular: Regular rate, No murmurs Abdomen: Bowel Sounds Present, Soft, Non Tender, Non-Distended, No Hepato-splenomegaly Extremities: No edema, Capillary Refill Less than 3 Seconds Skin: No rashes, No breakdown Musculoskeletal: No Tenderness to Palpation of Joints or Extremities Lymphatic: No Cervical, Supraclavicular, or Inguinal Adenopathy Neurological: Cranial nerves II-XII grossly intact Psych/Mental Status: Normal Affect, Appropriate Vitals/I&O's: Vital Signs Temp Pulse Resp BP Pulse Ox 97.8 F 58 L 16 126/64 H 98 04/01/18 10:00 04/01/18 10:05 04/01/18 10:00 04/01/18 10:00 04/01/18 10:00 Oxygen Delivery Method Room Air Weight: 130.7 kg Body Mass Index (BMI) 42.5 Finger Stick Blood Glucose 117 Orthostatic Vital Signs Start: 03/31/18 11:47 Freq: q24h Status: Active Protocol: Activity Type Activity Date Activity User E-Sign Co-Sign Detail Recorded Client Recorded Date Recorded By Document 03/31/18 11:30 [facility] [id number] 03/31/18 11:48 [facility] 03/31/18 11:30 Orthostatic Vitals Sitting -Blood Pressure (90/60-120/80 mm Hg) 135/72 H -Extremity Use Right Arm -Pulse Rate (60-100 beats/min) 60 Lying -Blood Pressure (90/60-120/80 mm Hg) 136/66 H -Extremity Use Right Arm -Pulse Rate (60-100 beats/min) 58 L Intake and Output for Last 24 Hours 03/30/18 03/31/18 04/01/18 23:59 23:59 23:59 Intake Total 1160 / 1160 2652.8 / 2652.8 528 / 528 Output Total 1900 / 1900 2855 / 2855 500 / 500 Balance -740 / -740 -202.2 / -202.2 Laboratory Results 03/31/18 11:24: POC Glucose 207 H 03/31/18 17:29: POC Glucose 139 H 03/31/18 21:24: POC Glucose 178 H 04/01/18 06:14: Sodium 142, Potassium 4.0, Chloride 111 H, Carbon Dioxide 24.0, Anion Gap 7, BUN 23 H, Creatinine 1.24, Estim Creat Clear Calc 61.77, Est GFR (MDRD) Af Amer 76, Est GFR (MDRD) Non-Af 63, BUN/Creatinine Ratio 18.5, Glucose 133 H, Calcium 8.1 L 04/01/18 06:58: POC Glucose 133 H Current Medications Acetaminophen (Tylenol) 650 mg PO Q6H PRN PRN PRN Reason: Non-cardiac pain (mod-severe) Last Admin: 03/27/18 07:10 Dose: 650 mg Aspirin (Aspirin, Baby) 81 mg PO DAILY@0800 [facility] Last Admin: 04/01/18 10:03 Dose: 81 mg Atorvastatin Calcium (Lipitor) 40 mg PO QHS [facility] Last Admin: 03/31/18 21:27 Dose: 40 mg Dextrose (D50w Syringe) 0 gm IV X1 PRN; Protocol PRN Reason: Hypoglycemia Flecainide Acetate (Tambocor) 100 mg PO BID [facility] Last Admin: 04/01/18 10:05 Dose: Not Given Glucagon () 1 mg IM .X1 PRN PRN Reason: Hypoglycemia Heparin Sodium (Porcine) (Heparin Na) 5,000 unit SC Q8 [facility] Last Admin: 04/01/18 05:37 Dose: 5,000 unit Sodium Chloride () 1,000 mls @ 100 mls/hr IV .Q10H [facility] Last Admin: 04/01/18 10:00 Dose: 100 mls/hr Insulin Human Lispro (Humalog Kwikpen (Bkc)) 0 unit SQ ACHS [facility]; Protocol Last Admin: 04/01/18 07:22 Dose: Not Given Magnesium Hydroxide (Milk Of Magnesia) 30 ml PO DAILY PRN PRN PRN Reason: Constipation Metoprolol Tartrate (Lopressor (Beta Dalton)) 25 mg PO BID [facility] Last Admin: 04/01/18 10:05 Dose: Not Given Pantoprazole Sodium (Protonix) 40 mg PO BID [facility] Last Admin: 04/01/18 10:03 Dose: 40 mg Sertraline HCl (Zoloft) 50 mg PO DAILY [facility] Last Admin: 04/01/18 10:03 Dose: 50 mg Medical Necessity - Tobacco Use Smoking Status: Former smoker Tobacco Use: Cigars, Pipe Assessment/Plan All Active Problems Dizziness (Acute) Syncope (Acute) Abdominal pain (Acute) 62-year-old gentleman admitted with dizziness followed by series of syncopal episode. MRI brain has been negative for acute CVA 1. Acute vertigo, unclear etiology, MRI was negative for posterior circulation CVA, improved 2. 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 3. Paroxysmal A. fib, in NSR, on flecainide, metoprolol 4. Hypertension, controlled, continue with medications 5. Diabetes mellitus type 2, blood sugars are fairly controlled, will continue with Accu-Cheks and insulin sliding scale, resume metformin from tomorrow 6. Dyslipidemia, on atorvastatin 7. Morbid obesity with BMI of 42.6 8. Acute kidney injury on CKD stage 3, creatinine remains the same, likely his baseline 9. DVT prophylaxis with heparin subcu 10. Disposition: Insurance precertification for discharge to detention facility is pending. Code Visit Inpatient E&M: 86643 Subs Hosp L2
[2018-04-01 12:05] LABS: Bedside Glucose 247 mg/dL (70-110)
[2018-04-01] MEDS: Insulin Lispro 100 UNIT/ML INSULN.PEN SQ ×2 (13:01→21:12)
--- NOTE | 2018-04-01 13:49 | CASEMGMT ---
Physician asked BERNARD if BERNARD could get the name and number of Psychiatrist that goes to [facility]. BERNARD spoke with Shruthi at [facility] and she called SW back stating she checked with insurance and they still do not have pre-cert. She said their Psychiatrist is Dr Garcia and his phone number is [phone]. BERNARD will give this to physician. BERNARD also called patient's friend and POA, Akil Rosa and left him a message letting him know that we are still waiting on insurance to authorize patient to go to [facility]. Plan: [facility] pending pre-cert. Lay RUIZ MSW
[2018-04-01 17:06] LABS: Bedside Glucose 119 mg/dL (70-110)
[2018-04-01] MEDS: Atorvastatin Calcium 40 MG Tablet PO (21:12)
[2018-04-01 23:01] LABS: Bedside Glucose 153 mg/dL (70-110)
[2018-04-02 03:00] VITALS: BP 143/63; PULSE 68; RESP 16; TEMP 36.6; O2SAT 98
[2018-04-02] MEDS: 0.9% Normal Saline 1,000 ML 100 ML IV (05:41)
[2018-04-02] MEDS: Heparin Injection (Vial) 5,000 UNIT/ML VIAL 5000 UNIT SC (05:42)
[2018-04-02 06:35] LABS: Bedside Glucose 120 mg/dL (70-110)
[2018-04-02 06:57] VITALS: PULSE 56
[2018-04-02 09:00] VITALS: BP 145/65; PULSE 59; RESP 16; TEMP 36.4; O2SAT 99
[2018-04-02 09:14] VITALS: PULSE 59
[2018-04-02] MEDS: Sertraline 50 MG Tablet PO (09:14)
[2018-04-02] MEDS: Pantoprazole Sodium 40 MG Tablet PO (09:14)
[2018-04-02] MEDS: Aspirin 81 MG TAB.CHEW PO (09:14)
[2018-04-02 11:07] VITALS: PULSE 67
[2018-04-02] MEDS: Insulin Lispro 100 UNIT/ML INSULN.PEN SQ (11:29)
--- NOTE | 2018-04-02 11:37 | PCM.TXEXTCAR ---
- Diet 03/27/18 09:42 Diet: Cardiac and diabetic diet. 1800 calories, <2 g sodium daily Is pt able to select menu?: Yes - Routine Orders/Code Status Suppository Type: Dulcolax 10mg Suppository Frequency: Daily PRN Routine Lab Work: BMP - 3 days Code Status: Full Code - Wound(s) right foot 5th toe Wound Type: Abrasion right foot 2nd toe Wound Type: Abrasion - Therapies Physical Therapy: Eval and Treat Occupational Therapy: Eval and Treat - Problem/Diagnosis (1) Vertigo Status: Acute Current Visit: Yes (2) LESLIE (acute kidney injury) Status: Acute Current Visit: Yes (3) Psychogenic syncope Status: Acute Current Visit: Yes (4) HTN (hypertension) Status: Chronic Current Visit: Yes (5) Diabetes mellitus Status: Chronic Current Visit: Yes (6) Morbid obesity Status: Chronic Current Visit: Yes (7) HLD (hyperlipidemia) Status: Chronic Current Visit: Yes (8) BPH (benign prostatic hyperplasia) Status: Chronic Current Visit: No (9) Paroxysmal atrial fibrillation Status: Chronic Current Visit: No - Allergies/Procedures Done in Hospital Allergies/Adverse Reactions: Allergies lanolin Allergy (Verified 03/26/18 16:46) Unknown Procedures: 2-D Echocardiogram, Electroencephalogram - Type of Care/Length of Stay Estimated LOS: Convalescent Care Less Than 30 days Type of Care Needed: Skilled Rehab Potential: Fair Prognosis: Fair - Additional Orders/Day of Discharge Day of Discharge: 04/02/18 - Dietary and Speech Recommendations Dietitian Recommendations/Changes: Rec diet change to 1800 merlin Cardiac d/t pmhx and BMI - Follow Up Care Primary Care Physician: Devonte Moon MD [Primary Care Provider] - Please follow up with your Primary Care Physician in: 1-2 weeks Please Follow Up With: Psychiatry When: 1-2 weeks
[2018-04-02 11:51] LABS: Bedside Glucose 240 mg/dL (70-110)
--- NOTE | 2018-04-02 12:02 | PHA.DC.MR ---
Pharmacy Service has performed discharge medication reconciliation for this patient upon discharge to extended care facility. The patient's discharge medication list was reviewed for discrepancies and discrepancies were resolved.
--- NOTE | 2018-04-02 12:49 | NURSING ---
Called report to Lisa PHELAN at [facility]
--- NOTE | 2018-04-02 13:06 | CASEMGMT ---
Received insurance approval for patient to go to [facility]. [facility] and arranged for patient to get picked up at via [employer] van. BERNARD faxed orders to [facility]. Completed convalescent on HENS. SW notified patient's friend/POA, Akil of d/c and black pickler. BERNARD also notified RN who notified patient, and clerical secretary. Plan: d/c to [facility] under skilled level of care on a convalescent stay. [facility] transported patient via [employer] van. Lay RUIZ MSW
--- NOTE | 2018-04-02 14:53 | DS.PCM_ITS ---
Discharge Date and Diagnosis Date of Admission: 03/26/18 Date of Discharge: 04/02/18 - Primary Discharge Diagnosis Acute kidney injury suspect secondary to dehydration Psychogenic syncope Vertigo nonspecific etiology Stroke ruled out Paroxysmal atrial fibrillation Hypertension Type 2 diabetes mellitus Dyslipidemia Morbid obesity - Secondary Discharge Diagnosis Chronic Problems HTN (hypertension) (Chronic) Diabetes mellitus (Chronic) Morbid obesity (Chronic) HLD (hyperlipidemia) (Chronic) BPH (benign prostatic hyperplasia) (Chronic) Peptic ulcer disease with hemorrhage (Chronic) Paroxysmal atrial fibrillation (Chronic) Acute pancreatitis (Chronic) Hospital Course and Treatment Imaging Results: CT/Brain/Head without Contrast IMPRESSION: Chronic involutional changes of the brain. RAD/Chest 1 View IMPRESSION: Normal x-ray examination of the chest. MRI/Brain without Contrast IMPRESSION: 1. Involutional changes of the brain, as described above. 2. No MR evidence for acute infarct. Carotid US Interpretation Summary There is <50% stenosis in bilateral extracranial internal carotid arteries (ICAs) based on the velocity criteria. Theres is mild homogenous athrosclerotic plaque noted in right ICA and heterogenous atherosclerotic plaque in the left ICA. There is antegrade flow in bilateral vertebral arteries. Echo: Interpretation Summary The study was technically difficult. Contrast injection was performed. Left ventricular systolic function is normal. The estimated ejection fraction is 65 %. The left atrium is mildly enlarged. Mild (1+) mitral valve insufficiency. Trivial tricuspid valve insufficiency. Mild focal aortic valve thickening. Right ventricular systolic pressure estimated to be 33 mmHg. Diastolic function is indeterminate. EEG Interpretation This is an abnormal EEG due to mild generalized slowing. This may be seen in generalized cerebral dysfunction like metabolic/toxic encephalopathy. Clinical correlation is advised. There is no epileptiform discharges or electrographic seizures noted during the record. Consults: [facility] - cardiology Christelle - neuro Operations: [email or web address] Procedures: 2-D Echocardiogram, Electroencephalogram, - - carotid u/s. Summary of Care Provided: Physical exam on day of discharge: General: Resting comfortably NAD Psych: A/Ox3 normal affect HEENT: PEARRLA AT NC Neck: Supple NT CV: RRR no m/t/r/g/h Resp: CTA Abd: [id number] Soft NT no guarding or rigidity Ext: DP2+= no edema Skin: W/D normal turgor Lymph/Heme: No active bleeding or adenopathy Neuro: CN2-12 intact Hospital course: The patient is a 62 year old M with a history of psychogenic syncope previously worked up extensively at outside institutions ([facility]-included tilt table testing and 24-hour EEG) who reported to the ER with dizziness starting in the doctor's office. He stated he had ringing in the ears and sudden onset of dizziness, however he did have a history of vertigo over the past 4 years. He also stated he had a headache. He appeared to have AK I on presentation with an elevated BUN and creatinine. CT of the brain showed chronic changes. He was admitted for vertigo and dizziness. He was placed in the PCU on telemetry. Radiology and neurology were consulted. He underwent a stroke workup with an MRI of the brain, MRA of the head and neck, carotid duplexes, echocardiogram. The workup was negative. He had no events on telemetry. Cardiology did not feel that there is a cardiac explanation for his syncopal events or his dizziness. He did continue to have syncopal episodes while here. Neurology felt that he had psychogenic syncope and if this needed worked up by a psychiatrist as an outpatient. An EEG was obtained which was negative for seizure activity. There was generalized slowing. He was given IV fluids for his elevated creatinine which improved gradually. It was recommended that he be discharged to long term and he was agreeable -he was discharged and stable condition and will need to follow-up with his PCP and should be referred to psychiatry as an outpatient for follow-up in 1-2 weeks. This patient was seen by Alo Vargas PA-C under the supervision of Doctor Maynor. [] Discharge Diet: Low fat/ Low Cholesterol, 1800 Calorie Control Diet, 2000 mg Sodium Diet Discharge Activity: Return to Normal Activity Home Medications: Medications to take at Discharge Acebutolol HCl [Sectral (Beta Dalton)] 200 mg PO BID 03/26/18 Aspirin E.C. [Ecotrin] 81 mg PO DAILY 03/26/18 Flecainide [Tambocor] 100 mg PO BID 03/26/18 Lisinopril [Zestril] 5 mg PO DAILY 03/26/18 Metformin HCl [Glucophage] 500 mg PO BID 03/26/18 Pantoprazole Sodium 40 mg PO BID 03/26/18 Sertraline HCl [Zoloft] 50 mg PO DAILY 03/26/18 Simvastatin [Zocor] 20 mg PO QHS 03/26/18 Acetaminophen [Tylenol Tablet] 650 mg PO Q6H PRN PRN tablet 04/02/18 Magnesium Hydroxide [Milk Of Magnesia] 30 ml PO DAILY PRN PRN udc 04/02/18 Primary Care Physician: Devonte Moon MD [Primary Care Provider] - Please follow up with your Primary Care Physician in: 1-2 weeks Please Follow Up With: Psychiatry When: 1-2 weeks Disposition: Detention facility Minutes spent on discharge:: 35 Patient Condition:: Stable Medical Necessity - Tobacco Use Smoking Status: Former smoker Tobacco Use: Cigars, Pipe Meaningful Use Info Meaningful Use Diagnoses (Choose all that apply): None applicable
== END 2018-04-02 14:20 | disposition skilled nursing facility (03) | DRG 316 ==
LOC: ED 17:18 → PCU 18:46
PROVIDERS: Internal Medicine; Psychiatry & Neurology Neurology; Admitting Provider Student in an Organized Health Care Education/Training Program; Emergency Provider Emergency Medicine; Family Provider Family Medicine; PCP Family Medicine; Visit Provider Family Medicine
DX: N17.9 Acute kidney failure, unspecified (principal); E86.0 Dehydration; I48.0 Paroxysmal atrial fibrillation; R42 Dizziness and giddiness; N18.3 Chronic kidney disease, stage 3 (moderate); F48.8 Other specified nonpsychotic mental disorders; I12.9 Hypertensive chronic kidney disease with stage 1 through stage 4 chronic kidney disease, or unspecified chronic kidney disease; E11.22 Type 2 diabetes mellitus with diabetic chronic kidney disease; E78.5 Hyperlipidemia, unspecified; N40.0 Benign prostatic hyperplasia without lower urinary tract symptoms; E66.01 Morbid (severe) obesity due to excess calories; Z68.41 Body mass index [BMI] 40.0-44.9, adult; Z79.84 Long term (current) use of oral hypoglycemic drugs; Z79.899 Other long term (current) drug therapy; Z79.82 Long term (current) use of aspirin; Z87.891 Personal history of nicotine dependence; Z71.3 Dietary counseling and surveillance; F32.9 Major depressive disorder, single episode, unspecified; I08.1 Rheumatic disorders of both mitral and tricuspid valves
CPT/HCPCS: 36415; 70450; 70544; 70547; 70551; 71045; 80048; 80061; 82962; 83036; 83735; 84484; 85025; 85027; 85610; 85652; 85730; 93005; 93306; 93880; 97110; 97162; 97165; 97530; 99218; 99285; J7030; Q9957; A4216; C8929; G0378

== ENCOUNTER 2020-02-14 19:16 | Observation (INO) | payer MEDICARE, SELFPAY ==
[2020-02-14 19:18] VITALS: BP 93/77; PULSE 69; RESP 19; TEMP 37.1; O2SAT 96; BMI 44.4
--- NOTE | 2020-02-14 20:03 | EKG12_ITS ---
Test Reason : CP Blood Pressure : / mmHG Vent. Rate : 062 BPM Atrial Rate : 214 BPM P-R Int : 000 ms QRS Dur : 096 ms QT Int : 416 ms P-R-T Axes : 270 062 047 degrees QTc Int : 422 ms Atrial flutter with variable A-V block ST & T wave abnormality, consider inferior ischemia Abnormal ECG Confirmed by DIANA BLAKCMON, MONIKA ([id number]), photographic editor PATRICIA CORDON ([id number]) on 02/15/2020 9:25:59 AM Referred By: Antonio Anthony Confirmed By:MONIKA ORTIZ MD
[2020-02-14] MEDS: Aspirin 81 MG TAB.CHEW 324 MG PO (20:12)
--- NOTE | 2020-02-14 20:12 | RAD_ITS ---
STUDY: X-RAY CHEST REASON FOR EXAM: Male, 64 years old. PALPITATIONS TECHNIQUE: AP portable COMPARISON: 03/26/2018 FINDINGS: The lungs are clear and expanded. There is no demonstrated pleural abnormality. Normal size heart. Normal mediastinum and mariaelena. Normal visualized pulmonary arteries. Normal visualized aortic arch and descending thoracic aorta. Normal visualized thoracic spine. Normal visualized ribs, clavicles, and shoulders. Postop changes status post cervical fusion There is no demonstrated abnormality of the visualized soft tissue structures of the upper abdomen. No significant change since prior exam RAD/Chest 1 View (Portable) IMPRESSION: No acute cardiopulmonary pathology Electronically Signed: Geovanny Yost MD at 20:32 EDT , Service support ,
[2020-02-14 20:13] LABS: Absolute Lymphocyte Count 1.63 X10^3/uL (0.83-4.51); Absolute Neutrophil Count 3.7 X10^3/uL (2.0-7.7); Basophil# 0.06 X10^3/uL; Eosinophil# 0.21 X10^3/uL; Eosinophils% 3.4 % (0-5); Hematocrit 43.2 % (40-54); Hemoglobin 14.5 g/dL (13.0-16.5); Lymphocyte # 1.63 X10^3/ul (4.0); Lymphocyte % 26.4 % (19-41); Mean Corp Hgb Conc 33.6 g/dL (32-36); Mean Corpuscular Hgb 28.7 pg (27.0-32.0); Mean Corpuscular Volume 85.4 fL (80-94); Mean Platelet Vol. 8.8 fl (6.2-12.0); Monocyte# 0.56 X10^3/uL; Monocyte% 9.1 % (0-10); NRBC Flagged by Analyzer 0 % (0-5); Neutrophil # 3.71 X10^3/uL (2.7-7.7); Neutrophil % 59.9 % (47-70); Platelet Count 241 K/mm3 (150-450); RBC Distribution Width CV 12.9 % (11.6-14.6); RBC Distribution Width SD 39.3 fl (35.1-43.9); Red Blood Count 5.06 M/mm3 (4.6-6.2); White Blood Count 6.2 K/mm3 (4.4-11.0)
[2020-02-14 20:22] LABS: Prothrombin Time (Protime)PT. 12.7 SECONDS (11.7-14.9)
[2020-02-14 20:27] VITALS: BP 117/85; PULSE 54; RESP 22; O2SAT 97
[2020-02-14 20:27] LABS: Anion Gap 5 (5-15); BUN 30 mg/dL (7-18); BUN/Creat Ratio 16.5 RATIO (10-20); Calcium,Total 8.6 mg/dL (8.5-10.1); Chloride 109 mmol/L (98-107); Creatinine, Serum 1.82 mg/dL (0.70-1.30); EST Glomerular Filtration Rate 40 mL/min (>60); Est Glom Filt Rate - Afr Amer 48 mL/min (>60); Glucose 138 mg/dL (74-106); Potassium 4.5 mmol/L (3.5-5.1); Sodium Level 139 mmol/L (136-145)
--- NOTE | 2020-02-14 21:19 | ED.VIS.GEN ---
History of Present Illness Chief Complaint: Chest Pain Narrative: Patient presents with chest pain for the past 2 days. He has a history of atrial flutter but is not anticoagulated, he normally has no pain with his atrial flutter. He does have a history of hypertension hypercholesterolemia as well as diabetes. He has no radiation he has no back pain or tearing sensation he has no DVT or PE risk factors. Past Medical History - Allergies and Home Meds Allergies/Adverse Reactions: Allergies lanolin Allergy (Verified 02/14/20 19:18) Unknown Primary Care Physician: Devonte Moon MD [Primary Care Provider] - Past Medical History: - - Hypertension, hypercholesterolemia, diabetes Surgical History: cholecystectomy Smoking Status: Never smoker - Family History Maternal Family History: Reports: No pertinent history Paternal Family History: Reports: No pertinent history Review of Systems All systems negative except as indicated General: Denies: Fever Cardiovascular: Reports: Chest pain. Denies: Palpitations Respiratory: Denies: Dyspnea Gastrointestinal: Denies: Abdominal pain Musculoskeletal: Denies: Myalgias Skin: Denies: Rash Neurological: Denies: Weakness Endocrine: Denies: Polyuria Hematologic: Denies: Easy bruising Physical Exam Vital Signs/Narrative: Vital Signs Temp Pulse Resp BP Pulse Ox 02/14/20 20:27 54 L 22 H 117/85 H 97 02/14/20 19:18 98.8 F 69 19 H 93/77 96 General: Well nourished, Well developed Eyes: Perrl, EOMI ENT: Moist mucous membranes Cardiovascular: Regular rate, Regular rhythm Respiratory: No distress, CTA bilaterally Abdomen: Soft, Nontender Back: Nontender, Normal Inspection Extremities: Nontender, No edema Skin: Normal color Neurological: Alert, Oriented x3 Psychological: Normal affect Diagnostic/Tx/Re-eval Chest X-Ray - ED: 1 View, Read by ED Physician, Read by Radiologist, Normal, Heart, Lungs, Mediastinum - Rhythm Strip Rhythm Strip: a-flutter Rate: 62 Ectopy: None - EKG Initial EKG Interpretation: - - A flutter with a rate of 62. QTc interval is normal, there are nonspecific ST changes throughout, otherwise unremarkable EKG Interpreted by emergency doctor - Medical Decision Making Patient is found to be in a flutter, however there are some subtle ST changes, there is no obvious STEMI he normally does not have chest pain with his flutter, he is not anticoagulated I will admit him for cardiac work-up since I am concerned about ischemia, we will also have to address his atrial flutter, we will start him on Lovenox and renally adjust. ED Disposition - Plan for ED Patient: Disposition: Acute Care Hospital [facility] Diagnosis: Chest pain, Atrial flutter Referrals: Devonte Moon MD [Primary Care Provider] -
--- NOTE | 2020-02-14 21:19 | HP.PCM_ITS ---
Problem List (1) HTN (hypertension) Status: Chronic (2) Diabetes mellitus Status: Chronic (3) LESLIE (acute kidney injury) Status: Acute (4) Morbid obesity Status: Chronic (5) HLD (hyperlipidemia) Status: Chronic (6) Chest pain Status: Acute (7) Atrial flutter Status: Acute (8) BPH (benign prostatic hyperplasia) Status: Chronic (9) Peptic ulcer disease with hemorrhage Status: Chronic (10) Paroxysmal atrial fibrillation Status: Chronic History of Present Illness Date of Admission: 02/14/20 Chief Complaint: chest pain The patient is a 64 year old M with a significant history of hypertension; hyperlipidemia; diabetes mellitus; paroxysmal A. fib/a flutter who presents emergency department with chest pain. His chest pain is episodic and it began about 2 weeks. The last time his chest pain occurred was about 30 minutes prior to presentation. His chest pain is at his left chest and it radiates to under his left breast. He rated chest pain as 6 out of 10. He described chest pain as sharp. He denies any aggravating or ameliorating factors to chest pain. Paramedics brought patient to emergency department. Paramedics reports that enroute to the hospital patient was in aflutter. Associated symptoms is nausea without vomiting. Also patient had mild shortness of breath. Past Medical History Past Medical History (Chronic Problems): Chronic Problems HTN (hypertension) (Chronic) Diabetes mellitus (Chronic) Morbid obesity (Chronic) HLD (hyperlipidemia) (Chronic) BPH (benign prostatic hyperplasia) (Chronic) Peptic ulcer disease with hemorrhage (Chronic) Paroxysmal atrial fibrillation (Chronic) Allergies lanolin Allergy (Verified 02/14/20 19:18) Unknown Home Medications: Ambulatory Orders Medication Instructions Recorded Acebutolol HCl [Sectral (Beta 200 mg PO BID 03/26/18 Dalton)] Aspirin E.C. [Ecotrin] 81 mg PO DAILY 03/26/18 Flecainide [Tambocor] 100 mg PO BID 03/26/18 Lisinopril [Zestril] 5 mg PO DAILY 03/26/18 Pantoprazole Sodium 40 mg PO BID 03/26/18 Sertraline HCl [Zoloft] 50 mg PO DAILY 03/26/18 Simvastatin [Zocor] 20 mg PO QHS 03/26/18 metFORMIN HCl [Glucophage] 500 mg PO BID 03/26/18 Cholecalciferol (VIT D3) [Vitamin 1,000 unit PO DAILY 02/14/20 D] Linagliptin [Tradjenta] 5 mg PO DAILY 02/14/20 Surgical History: cholecystectomy, - - Surgery for bleeding ulcer; abdominal surgery; neck surgery. Psychiatric History: No pertinent psych hx Smoking Status: Never smoker - *Family History Maternal History Items: - - He denies knowledge of maternal medical history. Paternal History Items: - - Denies knowledge of paternal medical history. Review of Systems Constitutional: Denies: Chills, Fever, Weight Change HEENT: Denies: Head Aches, Sinus Congestion, Sinus Drainage Cardiovascular: Reports: Chest Pain. Denies: Palpitations Respiratory: Reports: Shortness of Breath. Denies: Cough, Shortness of breath at rest, Sputum production Gastrointestinal: Reports: Nausea. Denies: Abdominal Pain, Vomiting Genitourinary: Denies: Dysuria Musculoskeletal: Denies: Joint Pain, Joint Tenderness Skin: Denies: Rash, Wounds Neurological: Denies: Numbness, Tingling, Focal weakness Psychiatric: Denies: Anxiety, Depression, Homicidal Ideations, Suicidal Ideations Hematologic/ Lymphatic: Denies: Easy Bruising, Easy Bleeding VTE Information - Inpt Only VTE Present on Admission: No VTE Mechan Device Prophylaxis: None VTE Pharm Prophylaxis ordered?: No Reason prophylaxis not ordered:: Treatment Not Indicated - Received therapeutic dose of Lovenox for a flutter. Patient Problems: Active and Suspected Problems Chest pain (Acute) Atrial flutter (Acute) - Physical Exam Vitals/I&O's: Vital Signs Temp Pulse Resp BP Pulse Ox 98.8 F 54 L 22 H 117/85 H 97 02/14/20 19:18 02/14/20 20:27 02/14/20 20:27 02/14/20 20:27 02/14/20 20:27 Oxygen Delivery Method Room Air Weight: 136.6 kg Body Mass Index (BMI) 44.4 Finger Stick Blood Glucose 117 General: Alert, Oriented x3, Cooperative HEENT: Atraumatic, PERRLA, EOMI, Normocephalic Neck: Supple, No JVD, Negative Carotid Bruits Lungs: Clear to auscultation, Normal air movement, No rhonchi, No wheeze, No rales Cardiovascular: Regular rate, Normal S1, Normal S2, No murmurs Abdomen: Bowel Sounds Present, Soft, Non Tender Extremities: No edema, Capillary Refill Less than 3 Seconds Skin: No rashes, No breakdown Musculoskeletal: No Tenderness to Palpation of Joints or Extremities Neurological: Cranial nerves II-XII grossly intact Psych/Mental Status: Normal Affect, Appropriate Laboratory Results 02/14/20 19:20: WBC 6.2, RBC 5.06, Hgb 14.5, Hct 43.2, MCV 85.4, MCH 28.7, MCHC 33.6, RDW Std Deviation 39.3, RDW Coeff of Darrell 12.9, Plt Count 241, MPV 8.8, Immature Gran % (Auto) 0.200, Neut % (Auto) 59.9, Lymph % (Auto) 26.4, Phillips % (Auto) 9.1, Eos % (Auto) 3.4, Baso % (Auto) 1.0, Absolute Neuts (auto) 3.7, Absolute Lymphs (auto) 1.63, Nucleated RBC % 0 02/14/20 19:20: PT 12.7, INR 1.0 02/14/20 19:20: Sodium 139, Potassium 4.5, Chloride 109 H, Carbon Dioxide 25.0, Anion Gap 5, BUN 30 H, Creatinine 1.82 H, Estim Creat Clear Calc 41.00, Est GFR (MDRD) Af Amer 48 L, Est GFR (MDRD) Non-Af 40 L, BUN/Creatinine Ratio 16.5, Glucose 138 H, Calcium 8.6, Troponin I < 0.015 Assessment/Plan All Active Problems LESLIE (acute kidney injury) (Acute) Chest pain (Acute) Atrial flutter (Acute) The patient is a 64 year old M with a significant history of hypertension; hyperlipidemia; diabetes mellitus; paroxysmal A. fib/a flutter who presents to the emergency department with chest pain Chest Pain Place on a monitored bed at U Actual CXR image was independently visualized. No acute cardiopulmonary process was noted. Actual EKG tracing was independently visualized. EKG tracing showed a flutter. Received aspirin 325 mg in emergency department. ASA 81 mg p.o. daily continued SL NTG 0.4 mg prn as needed for chest pain ordered We will check lipid panel. Statin: Home simvastatin continued. Therapeutic dose of Lovenox x1 Initial troponin was negative. Serial cardiac enzymes ordered Stat EKG as needed for chest pain Stress test in the AM if the cardiac enzymes are negative A flutter Patient is a history of a flutter Flecainide continued Acebutolol continued. Hold on morning of stress test. Therapeutic dose of Lovenox x1 Magnesium level ordered; returned 2.1. Potassium is 4.5. Patient is not on home anticoagulation consider oral anticoagulation. LESLIE on CKD stage III Cr was 1.82 highest creatinine in 2018 was 1.50. No creatinine on file for 2019. BUN is 30 BUN/creatinine is 16.5 CKD likely from hypertensive nephrosclerosis and diabetes nephropathy Gentle IV hydration Avoid nephrotoxins Hold home lisinopril. Diabetes mellitus Patient with hyperglycemia on presentation Hold home metformin since it is too early in his admission DPP 4 inhibitors continued. Accu-Chek with correction scale insulin ordered. Morbid obesity: BMI 42.1. Complicates care. Recommend lifestyle modifications. DVT prophylaxis Received therapy dose of Lovenox at emergency department. OBSV E&M: 12812 Initial observation care L3
[2020-02-14 21:55] LABS: Magnesium 2.1 mg/dL (1.6-2.6)
[2020-02-14 22:03] VITALS: BP 117/85; PULSE 67; RESP 20; TEMP 37.1; O2SAT 95
--- NOTE | 2020-02-14 22:46 | EKG12_ITS ---
Test Reason : CP ADMISSION Blood Pressure : / mmHG Vent. Rate : 061 BPM Atrial Rate : 214 BPM P-R Int : 000 ms QRS Dur : 096 ms QT Int : 460 ms P-R-T Axes : 268 058 057 degrees QTc Int : 463 ms Atrial flutter with variable A-V block Nonspecific ST abnormality Abnormal ECG When compared with ECG of 14-FEB-2020 19:15, MANUAL COMPARISON REQUIRED, DATA IS UNCONFIRMED Confirmed by MARTHA ROBLES [id number]), production editor PATRICIA CORDON ([id number]) on 02/21/2020 10:10:47 AM Referred By: Antonio Anthony Confirmed By:MARTHA ROBLES
[2020-02-14 23:00] VITALS: BP 143/89; PULSE 63; RESP 20; TEMP 36.7; O2SAT 97
[2020-02-14 23:10] VITALS: BMI 42.0
[2020-02-14 23:21] VITALS: BMI 42.1
[2020-02-14 23:45] VITALS: O2SAT 97
[2020-02-14] MEDS: 0.9% Saline Lock 10 ML Syringe IV (23:47)
[2020-02-14] MEDS: 0.9% Normal Saline 1,000 ML 100 ML IV (23:48)
[2020-02-15] VITALS (10 sets, daily range): BP systolic 109–134; BP diastolic 50–73; PULSE 57–77; RESP 16–20; TEMP 36.4–36.6; O2SAT 95–97
[2020-02-15] MEDS: Enoxaparin 150 MG/ML Syringe 140 MG SC (00:01)
[2020-02-15 00:16] LABS: Bedside Glucose 129 mg/dL (70-110)
[2020-02-15 02:31] LABS: Cholesterol 123 mg/dL (200); High Density Lipoprotein 31 mg/dL; Thyroid Stim Hormone (TSH) 5.62 uIU/mL (0.358-3.74); Triglycerides 336 mg/dL; Very Low Density Lipoprotein 67 mg/dL (5-40)
--- NOTE | 2020-02-15 05:55 | EKG12_ITS ---
Test Reason : AM EKG Blood Pressure : / mmHG Vent. Rate : 069 BPM Atrial Rate : 069 BPM P-R Int : 246 ms QRS Dur : 098 ms QT Int : 434 ms P-R-T Axes : 056 042 041 degrees QTc Int : 465 ms Sinus rhythm with 1st degree A-V block Otherwise normal ECG When compared with ECG of 14-FEB-2020 23:34, MANUAL COMPARISON REQUIRED, DATA IS UNCONFIRMED Confirmed by MARTHA ROBLES [id number]), script editor PATRICIA CORDON ([id number]) on 02/21/2020 10:11:20 AM Referred By: Antonio Anthony Confirmed By:MARTHA ROBLES
[2020-02-15] MEDS: Aspirin E.C. 81 MG Tablet PO (06:28)
[2020-02-15] MEDS: Flecainide 100 MG Tablet PO (06:29)
[2020-02-15 07:05] LABS: Bedside Glucose 150 mg/dL (70-110)
--- NOTE | 2020-02-15 08:45 | NURSING ---
Patient off floor for stress test at this time
[2020-02-15 09:55] LABS: Bedside Glucose 157 mg/dL (70-110)
[2020-02-15] MEDS: LINAGLIPTIN 5 MG TABLET PO (10:48)
[2020-02-15] MEDS: 0.9% Saline Lock 10 ML Syringe IV (10:48)
[2020-02-15] MEDS: Pantoprazole Sodium 40 MG Tablet PO (10:48)
[2020-02-15] MEDS: Sertraline 50 MG Tablet PO (10:48)
--- NOTE | 2020-02-15 11:36 | DCINST_ITS ---
- Discharge Diagnoses Current Active Problems: Current Active and Chronic Problems Chest pain (Acute) Atrial flutter (Acute) You will use the following diet at home:: Cardiac Discharge Activity: Return to Normal Activity Call your doctor if you observe: Shortness of breath, Dizziness, Fainting spells, Chest pain Allergies/Adverse Reactions: Allergies lanolin Allergy (Verified 02/14/20 19:18) Unknown Medications to take at Discharge Acebutolol HCl [Sectral (Beta Dalton)] 200 mg PO BID 03/26/18 Aspirin E.C. [Ecotrin] 81 mg PO DAILY 03/26/18 Flecainide [Tambocor] 100 mg PO BID 03/26/18 Lisinopril [Zestril] 5 mg PO DAILY 03/26/18 Pantoprazole Sodium 40 mg PO BID 03/26/18 Sertraline HCl [Zoloft] 50 mg PO DAILY 03/26/18 Simvastatin [Zocor] 20 mg PO QHS 03/26/18 metFORMIN HCl [Glucophage] 500 mg PO BID 03/26/18 Cholecalciferol (VIT D3) [Vitamin D3] 1,000 unit PO DAILY 02/14/20 Linagliptin [Tradjenta] 5 mg PO DAILY 02/14/20 Primary Care Physician: Devonte Moon MD [Primary Care Provider] - Please follow up with your Primary Care Physician in: 1 Week Test Results: Test results from this visit will be discussed in further detail at your follow- up appointment, if applicable. Proposed Discharge Date: 02/15/20
[2020-02-15] MEDS: 0.9% Normal Saline 1,000 ML 100 ML IV (12:06)
[2020-02-15 12:15] LABS: Bedside Glucose 131 mg/dL (70-110)
--- NOTE | 2020-02-15 12:15 | PHA.DC.MR ---
Pharmacy Service has performed discharge medication reconciliation for this patient. No new medications at time of discharge review. medications reviewed are previously reported home medications. The patient's discharge medication list was reviewed for discrepancies and discrepancies were resolved. Home Medications Acebutolol HCl [Sectral (Beta Dalton)] 200 mg PO BID 03/26/18 Aspirin E.C. [Ecotrin] 81 mg PO DAILY 03/26/18 Flecainide [Tambocor] 100 mg PO BID 03/26/18 Lisinopril [Zestril] 5 mg PO DAILY 03/26/18 Pantoprazole Sodium 40 mg PO BID 03/26/18 Sertraline HCl [Zoloft] 50 mg PO DAILY 03/26/18 Simvastatin [Zocor] 20 mg PO QHS 03/26/18 metFORMIN HCl [Glucophage] 500 mg PO BID 03/26/18 Cholecalciferol (VIT D3) [Vitamin D] 1,000 unit PO DAILY 02/14/20 Linagliptin [Tradjenta] 5 mg PO DAILY 02/14/20
--- NOTE | 2020-02-15 12:21 | STRESSREP ---
Stress Test Report Exercise and pharmacologic myocardial perfusion stress test. 64-year-old man with a history of chest pain. Resting EKG demonstrates normal sinus rhythm with a rate of 70 bpm normal intervals are noted. Resting blood pressure is 102/78 mmHg. The patient exercised according to regular Osman protocol for a total duration of 3 minutes the maximum heart rate attained was 120 bpm which was 76% of max impacted heart rate and the maximum workload of 4.6 metabolic equivalents. The patient got very fatigued and dizzy and the test was changed to a pharmacologic myocardial perfusion stress test with 0.4 mg of regadenoson being infused. Continuous EKG monitoring was performed for 5 maintained sinus rhythm throughout the recording. The final blood pressure was 118/60 mmHg. Myocardial perfusion protocol. 14.9 mCi of technetium 99m sestamibi was injected at rest. 0.4 mg of regadenoson was infused per usual protocol peak infusion 44.5 mCi of technetium 99m sestamibi was injected stress images were obtained stress and rest images were reconstructed and compared in the short axis vertical and horizontal long axis. Gated images were also obtained Perfusion SPECT analysis: Review of the stress images demonstrate normal uptake of tracer in all areas of the myocardium. The resting images similar demonstrate normal uptake of tracer noted in all areas of the myocardium no reversibility is noted suggest ischemia no previous infarct is noted. Gated SPECT analysis: The gated ejection fraction is 76%. Conclusion: Normal pharmacologic myocardial perfusion stress test. Preserved ejection fraction.
[2020-02-15] MEDS: Ondansetron 4 MG/2 ML Vial IV (12:41)
--- NOTE | 2020-02-15 13:40 | PCM.DC.SUM ---
<Katelyn Miranda - Last Filed: 02/15/20 13:47> Discharge Date and Diagnosis Date of Admission: 02/14/20 Date of Discharge: 02/15/20 - Primary Discharge Diagnosis Acute Problems: Active Problems 1. Chest pain, ACS ruled out 2. Paroxysmal atrial flutter/atrial fibrillation 3. Acute kidney injury on chronic kidney disease stage III 4. Type 2 diabetes mellitus 5. Morbid obesity 6. Hypertension 7. Hyperlipidemia 8. Depression - Secondary Discharge Diagnosis Chronic Problems: Chronic Problems HTN (hypertension) (Chronic) Diabetes mellitus (Chronic) Morbid obesity (Chronic) HLD (hyperlipidemia) (Chronic) BPH (benign prostatic hyperplasia) (Chronic) Peptic ulcer disease with hemorrhage (Chronic) Paroxysmal atrial fibrillation (Chronic) Hospital Course and Treatment Imaging Results: Diagnostic Data Chest X-Ray 02/14/20 20:12 IMPRESSION: No acute cardiopulmonary pathology Electronically Signed: Geovanny Yost MD at 20:32 EDT , Service support , Operations: None Procedures: Stress test Summary of Care Provided: The patient is a 64 year old M admitted 02/14/2020 due to chest pain. 1. Chest pain, ACS ruled out-troponin negative. EKG without ST-T changes. Patient underwent nuclear stress test which was negative for ischemia. Gated ejection fraction 76%. Left-sided chest pain is reproducible. Musculoskeletal in nature. Continue daily baby aspirin. Follow-up with primary care physician in 1 week. 2. Paroxysmal atrial flutter/atrial fibrillation-continue flecainide. Not on oral anticoagulation. Continue routine follow-up with cardiology. 3. Acute kidney injury on chronic kidney disease stage III-patient received IV fluids. Creatinine has fluctuated in the past. Recommend repeat BMP by primary care physician within 1 week. 4. Type 2 diabetes mellitus-continue home metformin, Tradjenta regimen. 5. Morbid obesity-encouraged diet and lifestyle modifications. 6. Hypertension-stable, continue lisinopril regimen. 7. Hyperlipidemia-continue statin. 8. Depression-continue sertraline regimen. Patient seen and examined prior to discharge. Physical assessment as noted below. Patient is stable for discharge with follow up recommendations as noted above. This patient was seen by EKATERINA Garner under the supervision of Dr. Sultana. - Physical Exam Vitals/I&O's: Vital Signs Temp Pulse Resp BP Pulse Ox 97.8 F 74 16 128/68 H 96 02/15/20 10:42 02/15/20 11:00 02/15/20 10:42 02/15/20 10:42 02/15/20 10:42 Oxygen Delivery Method Room Air Weight: 285 lb 0.923 oz Body Mass Index (BMI) 42.0 Finger Stick Blood Glucose 117 Intake and Output for Last 24 Hours 02/13/20 02/14/20 02/15/20 23:59 23:59 23:59 Intake Total 1120 / 1120 Output Total 630 / 630 Balance 490 / 490 General: Alert, Oriented x3, Cooperative HEENT: Atraumatic, PERRLA, EOMI, Normocephalic Neck: Supple, No JVD, Negative Carotid Bruits Lungs: Clear to auscultation, Normal air movement Cardiovascular: Regular rate, No murmurs Abdomen: Bowel Sounds Present, Soft, Non Tender, Non-Distended, Obese Extremities: No clubbing, No cyanosis, No edema, Capillary Refill Less than 3 Seconds Skin: No rashes, No breakdown Musculoskeletal: No Tenderness to Palpation of Joints or Extremities Neurological: Cranial nerves II-XII grossly intact, Neuro grossly intact Psych/Mental Status: Normal Affect, Appropriate Laboratory Results 02/14/20 19:20: WBC 6.2, RBC 5.06, Hgb 14.5, Hct 43.2, MCV 85.4, MCH 28.7, MCHC 33.6, RDW Std Deviation 39.3, RDW Coeff of Darrell 12.9, Plt Count 241, MPV 8.8, Immature Gran % (Auto) 0.200, Neut % (Auto) 59.9, Lymph % (Auto) 26.4, [place] % (Auto) 9.1, Eos % (Auto) 3.4, Baso % (Auto) 1.0, Absolute Neuts (auto) 3.7, Absolute Lymphs (auto) 1.63, Nucleated RBC % 0 02/14/20 19:20: PT 12.7, INR 1.0 02/14/20 19:20: Sodium 139, Potassium 4.5, Chloride 109 H, Carbon Dioxide 25.0, Anion Gap 5, BUN 30 H, Creatinine 1.82 H, Estim Creat Clear Calc 41.00, Est GFR (MDRD) Af Amer 48 L, Est GFR (MDRD) Non-Af 40 L, BUN/Creatinine Ratio 16.5, Glucose 138 H, Calcium 8.6, Troponin I < 0.015 02/14/20 19:20: Magnesium 2.1 02/14/20 23:14: Troponin I < 0.015 02/15/20 00:07: POC Glucose 129 H 02/15/20 02:00: Troponin I < 0.015, Triglycerides 336 H, Cholesterol 123, LDL Cholesterol 25, VLDL Cholesterol 67 H, HDL Cholesterol 31 L, TSH 5.62 H 02/15/20 06:25: POC Glucose 150 H 02/15/20 09:45: POC Glucose 157 H 02/15/20 12:07: POC Glucose 131 H Current Medications Acetaminophen (Tylenol) 650 mg PO Q6H PRN PRN PRN Reason: Pain Score 1-10/Temp > 100.7 F Aspirin (Ecotrin) 81 mg PO DAILY@0800 [facility] Last Admin: 02/15/20 06:28 Dose: 81 mg Documented by: Atorvastatin Calcium (Lipitor) 10 mg PO QHS [facility] Cholecalciferol (Vitamin D (25mcg)) 1,000 unit PO DAILY [facility] Last Admin: 02/15/20 10:48 Dose: 1,000 unit Documented by: Dextrose (D50w Syringe) 0 gm IV X1 PRN; Protocol PRN Reason: Hypoglycemia Flecainide Acetate (Tambocor) 100 mg PO BID [facility] Last Admin: 02/15/20 06:29 Dose: 100 mg Documented by: Glucagon () 1 mg IM .X1 PRN PRN Reason: Hypoglycemia Sodium Chloride () 1,000 mls @ 100 mls/hr IV .Q10H [facility] Last Admin: 02/15/20 12:06 Dose: 100 mls/hr Documented by: Sodium Chloride () 250 mls @ 15 mls/hr IV .[id number] PRN PRN Reason: Saline Flush Sodium Chloride () 250 mls @ 15 mls/hr IV .[id number] PRN PRN Reason: Additional IVPB Infusion Insulin Human Lispro (Humalog Kwikpen (Bkc)) 0 unit SC Q6 [facility]; Protocol Last Admin: 08/18/20 12:08 Dose: Not Given Documented by: Linagliptin (Tradjenta) 5 mg PO DAILY [facility] Last Admin: 02/15/20 10:48 Dose: 5 mg Documented by: Melatonin (Melatonin) 3 mg PO QHS PRN PRN PRN Reason: INSOMNIA Morphine Sulfate () 2 mg IV Q3H PRN PRN PRN Reason: Pain Score 6-10/10 Nitroglycerin (Nitrostat) 0.4 mg SUBLINGUAL Q5M PRN PRN Reason: CARDIAC/CHEST PAIN Ondansetron HCl (Zofran) 4 mg IV Q8H PRN PRN PRN Reason: NAUSEA/VOMITING Last Admin: 02/15/20 12:41 Dose: 4 mg Documented by: Pantoprazole Sodium (Protonix) 40 mg PO BID [facility] Last Admin: 02/15/20 10:48 Dose: 40 mg Documented by: Senna/Docusate Sodium (Senokot-S, Jessica-Colace) 2 tablet PO BID PRN PRN PRN Reason: Constipation Sertraline HCl (Zoloft) 50 mg PO DAILY [facility] Last Admin: 02/15/20 10:48 Dose: 50 mg Documented by: Sodium Chloride () 10 - 40 ml IV UD PRN PRN Reason: SALINE FLUSH Last Admin: 02/15/20 10:48 Dose: 10 ml Documented by: Discharge Diet: Low fat/ Low Cholesterol, Carb Control Diet Discharge Activity: Return to Normal Activity Call your doctor if you observe: Shortness of breath, Dizziness, Fainting spells, Chest pain Home Medications: Medications to take at Discharge Acebutolol HCl [Sectral (Beta Dalton)] 200 mg PO BID 03/26/18 Aspirin E.C. [Ecotrin] 81 mg PO DAILY 03/26/18 Flecainide [Tambocor] 100 mg PO BID 03/26/18 Lisinopril [Zestril] 5 mg PO DAILY 03/26/18 Pantoprazole Sodium 40 mg PO BID 03/26/18 Sertraline HCl [Zoloft] 50 mg PO DAILY 03/26/18 Simvastatin [Zocor] 20 mg PO QHS 03/26/18 metFORMIN HCl [Glucophage] 500 mg PO BID 03/26/18 Cholecalciferol (VIT D3) [Vitamin D3] 1,000 unit PO DAILY 02/14/20 Linagliptin [Tradjenta] 5 mg PO DAILY 02/14/20 Primary Care Physician: Devonte Moon MD [Primary Care Provider] - Please follow up with your Primary Care Physician in: 1 Week Disposition: Home Minutes spent on discharge:: 35 Patient Condition:: Stable Medical Necessity - Tobacco Use Smoking Status: Former smoker Tobacco Use: Non-smoker Meaningful Use Info Meaningful Use Diagnoses (Choose all that apply): None applicable <Sonu Sultana - Last Filed: 02/15/20 14:50> Discharge Date and Diagnosis - Secondary Discharge Diagnosis Chronic Problems: Chronic Problems HTN (hypertension) (Chronic) Diabetes mellitus (Chronic) Morbid obesity (Chronic) HLD (hyperlipidemia) (Chronic) BPH (benign prostatic hyperplasia) (Chronic) Peptic ulcer disease with hemorrhage (Chronic) Paroxysmal atrial fibrillation (Chronic) Hospital Course and Treatment Imaging Results: 02/15/20 05:55 Nuclear Stress Test - Chemical [NM] Routine Summary of Care Provided: The patient is a 64 year old M [] - Physical Exam Vitals/I&O's: Vital Signs Temp Pulse Resp BP Pulse Ox 97.6 F L 70 18 113/69 97 02/15/20 13:42 02/15/20 13:42 02/15/20 13:42 02/15/20 13:42 02/15/20 13:42 Oxygen Delivery Method Room Air Weight: 285 lb 0.923 oz Body Mass Index (BMI) 42.0 Finger Stick Blood Glucose 117 Intake and Output for Last 24 Hours 02/13/20 02/14/20 02/15/20 23:59 23:59 23:59 Intake Total 1303.33 / 1303.33 Output Total 630 / 630 Balance 673.33 / 673.33 Laboratory Results 02/14/20 19:20: WBC 6.2, RBC 5.06, Hgb 14.5, Hct 43.2, MCV 85.4, MCH 28.7, MCHC 33.6, RDW Std Deviation 39.3, RDW Coeff of Darrell 12.9, Plt Count 241, MPV 8.8, Immature Gran % (Auto) 0.200, Neut % (Auto) 59.9, Lymph % (Auto) 26.4, [place] % (Auto) 9.1, Eos % (Auto) 3.4, Baso % (Auto) 1.0, Absolute Neuts (auto) 3.7, Absolute Lymphs (auto) 1.63, Nucleated RBC % 0 02/14/20 19:20: PT 12.7, INR 1.0 02/14/20 19:20: Sodium 139, Potassium 4.5, Chloride 109 H, Carbon Dioxide 25.0, Anion Gap 5, BUN 30 H, Creatinine 1.82 H, Estim Creat Clear Calc 41.00, Est GFR (MDRD) Af Amer 48 L, Est GFR (MDRD) Non-Af 40 L, BUN/Creatinine Ratio 16.5, Glucose 138 H, Calcium 8.6, Troponin I < 0.015 02/14/20 19:20: Magnesium 2.1 02/14/20 23:14: Troponin I < 0.015 02/15/20 00:07: POC Glucose 129 H 02/15/20 02:00: Troponin I < 0.015, Triglycerides 336 H, Cholesterol 123, LDL Cholesterol 25, VLDL Cholesterol 67 H, HDL Cholesterol 31 L, TSH 5.62 H 02/15/20 06:25: POC Glucose 150 H 02/15/20 09:45: POC Glucose 157 H 02/15/20 12:07: POC Glucose 131 H Addendum: Dr. Sultana I personally examined the patient and reviewed the chart. I agree with the above. 64-year-old male with a history of paroxysmal atrial flutter, morbid obesity, HTN, HLD, type 2 diabetes presents with chest pain. EKG was unremarkable and he had 3- troponins. Stress test was unremarkable and he was stable for discharge. On exam this morning he is stated that palpation to his left chest wall caused the same pain that he was feeling when he presented to the hospital, this is likely musculoskeletal in origin as a source of his chest pain. He will need to follow-up with his primary care doctor in 3 to 5 days. OBSV E&M: 34730 Observation care discharge
== END 2020-02-15 11:36 | disposition home or self-care (01) ==
LOC: ED 21:26 → PCU 21:54
PROVIDERS: Admitting Provider Hospitalist; Emergency Provider Emergency Medicine; PCP Family Medicine; Referring Provider Hospitalist; Visit Provider Family Medicine
DX: R07.89 Other chest pain (principal); I48.0 Paroxysmal atrial fibrillation; N17.9 Acute kidney failure, unspecified; N40.0 Benign prostatic hyperplasia without lower urinary tract symptoms; R06.02 Shortness of breath; N18.3 Chronic kidney disease, stage 3 (moderate); E11.22 Type 2 diabetes mellitus with diabetic chronic kidney disease; I48.92 Unspecified atrial flutter; E66.01 Morbid (severe) obesity due to excess calories; E11.65 Type 2 diabetes mellitus with hyperglycemia; I12.9 Hypertensive chronic kidney disease with stage 1 through stage 4 chronic kidney disease, or unspecified chronic kidney disease; E78.5 Hyperlipidemia, unspecified; F32.9 Major depressive disorder, single episode, unspecified; Z79.899 Other long term (current) drug therapy; Z79.84 Long term (current) use of oral hypoglycemic drugs; Z79.82 Long term (current) use of aspirin; Z68.41 Body mass index [BMI] 40.0-44.9, adult; Z87.891 Personal history of nicotine dependence
CPT/HCPCS: 36415; 71045; 78452; 80048; 80061; 82962; 83735; 84443; 84484; 85025; 85610; 93005; 93017; 96361; 96372; 96374; 99218; 99285; A9500; J7030; A4216; G0378; J2405; J2785

== ENCOUNTER 2021-02-11 20:31 | Emergency (ER) | payer MEDICARE, SELFPAY ==
[2021-02-11 20:33] VITALS: BP 142/93; PULSE 61; RESP 16; TEMP 36.2; O2SAT 99; BMI 44.4
--- NOTE | 2021-02-11 21:25 | CT_ITS ---
HISTORY: diverticulitis EXAMINATION: CT Abdomen And Pelvis W/ Contrast Injection TECHNIQUE: Helically acquired images were obtained of the abdomen and pelvis following IV contrast, including delayed imaging of kidneys. A radiation dose optimization technique was used for this scan. IV Contrast dosage and agent: 100mL Isovue-370 Oral contrast: None. COMPARISON: CT abdomen and pelvis from 05/13/13 FINDINGS: LOWER CHEST: Trace dependent atelectasis. Heart normal size. LIVER: Fatty infiltration of liver. GALLBLADDER AND BILIARY TREE: Status post cholecystectomy. No significant biliary ductal dilation. KIDNEYS AND URETERS: Mild bilateral renal cortical scarring and atrophy with a few small low-attenuation renal cysts (not requiring any follow-up at this time). There are a few bilateral calcified renal stones measuring up to 6 mm. No ureteral stones identified. No hydronephrosis. ADRENAL GLANDS: Non-enlarged. SPLEEN: Normal size without discrete mass. PANCREAS: Fatty infiltration. No discrete mass or peripancreatic inflammation. BOWEL: No evidence of acute appendicitis. No abnormal stomach or bowel distension. No focal inflammatory change observed. LYMPH NODES: No enlarged mesenteric or retroperitoneal lymph nodes. PERITONEUM: No free air or significant free fluid. No other fluid collection. VESSELS: Mild atherosclerosis. URINARY BLADDER: Unremarkable. REPRODUCTIVE ORGANS: No pelvic masses. ABDOMINAL WALL: Small bilateral inguinal fat hernias. BONES: Multilevel degenerative changes along spine with no acute fracture or suspicious osseous lesion. CT/Abdomen/Pelvis W IV Cont ONLY IMPRESSION: 1. No evidence of acute intra-abdominal abnormality. 2. Nonobstructing bilateral nephrolithiasis. 3. Other nonurgent findings within body of report. Individualized dose optimization techniques were used for this CT. at 0109 Reported and signed by: Ricky Johns MD Electronically Signed: Ricky Johns MD at 23:58 EDT Tel , Service support ,
--- NOTE | 2021-02-11 21:30 | EX.ED.DYSGE1 ---
HPI History of Present Illness Chief Complaint: Weakness Informant: patient and EMS Narrative Narrative: 65-year-old male presents with weakness. He tells me that several days ago he had some diarrhea. Has been persistent but today he has noticed some bright red blood when he wipes. He states the stool is brown. He notes tenderness over the lower left side of his abdomen. No fevers no vomiting. He has a history of a gastric ulcer requiring surgery as well as a small bowel obstruction following that. He has never had this pain before. No history of diverticulitis. The patient is on Eliquis [facility] Medical History (Updated 02/12/21 @ 00:[address] Dewayne Randolph, DO) Atrial flutter Diabetes mellitus HTN (hypertension) Morbid obesity Paroxysmal atrial fibrillation Home Medications acebutolol 200 mg PO BID 03/26/18 [History Last Taken 02/14/20 17:00] aspirin 81 mg PO DAILY 03/26/18 [History Last Taken 02/14/20 09:00] flecainide 100 mg PO BID 03/26/18 [History Last Taken 02/14/20 17:00] lisinopril 5 mg PO DAILY 03/26/18 [History Last Taken 02/14/20 09:00] metformin 500 mg PO BID 03/26/18 [History Last Taken 02/14/20 17:00] pantoprazole 40 mg PO BID 03/26/18 [History Last Taken 02/14/20 17:00] sertraline 50 mg PO DAILY 03/26/18 [History Last Taken 02/14/20 09:00] simvastatin 20 mg PO QHS 03/26/18 [History Last Taken 02/14/20 17:00] cholecalciferol (vitamin D3) 1,000 unit PO DAILY 02/14/20 [History Last Taken 02/14/20 09:00] apixaban [Eliquis] 5 mg PO DAILY 02/11/21 [History Last Taken Unknown] pioglitazone 15 mg PO DAILY 02/11/21 [History Last Taken Unknown] hydrocortisone-pramoxine [Proctofoam HC] 1 applic HI TID PRN #10 g 02/12/21 [Rx Last Taken Unknown] Allergy/AdvReac Type Severity Reaction Status Date / Time lanolin Allergy Unknown Verified 02/14/20 19:18 wool Allergy Hives Verified 02/11/21 20:35 Social History (Updated 02/11/21 @ 21:[address] Dewayne Randolph, DO) Smoking Status: Former smoker substance use type: does not use ROS ROS ED Constitutional Constitutional ED: Denies chills or weight loss Eyes Eyes: Denies change in vision or diplopia ENT ENT ED: Denies ear pain, rhinorrhea or sore throat Cardiovascular Cardiovascular: Denies chest pain, orthopnea, palpitations or racing heartbeat Respiratory/Chest Respiratory/Chest: Denies cough, dyspnea or orthopnea Gastrointestinal Gastrointestinal: Reports abdominal pain, diarrhea and other Details: Bright red blood per rectum ; Denies nausea or vomiting Genitourinary Genitourinary ED: Denies dysuria, hematuria or urinary frequency Musculoskeletal Musculoskeletal: Denies arthralgias or myalgias Integumentary Denies abscess or rash Neurologic Neurologic: Denies headache(s) or weakness Psychiatric Psychiatric: Denies anxiety, depression, suicidal ideation or suicidal thoughts Endocrine Endocrinology: Denies polydipsia, polyphagia or polyuria Allergic/Immunologic Allergic/Immunologic ED: Denies mouth swelling, tongue swelling or urticaria EXAM Physical Exam Const Vital Signs: 02/11/21 20:33 02/11/21 20:36 02/11/21 22:38 Temperature 97.1 F L Temperature Source Temporal Pulse Rate 61 81 Respiratory Rate 16 14 Respiratory Effort Normal Non-Labored Blood Pressure 142/93 H 137/76 H Blood Pressure Mean 109 96 Pulse Ox 99 97 Oxygen Delivery Method Room Air Room Air Positive well nourished and well developed General Appearance ED: well developed HEENT Reports normocephalic, head/scalp atraumatic and moist mucous membranes Eyes PERRL and EOMs intact bilaterally Neck no lymphadenopathy, supple and no JVD Resp normal respiratory effort and clear to auscultation bilaterally Cardio regular rate, regular rhythm and no murmurs GI GI Narrative: Rectal exam demonstrates bright red blood at the anus. There is evidence of early external hemorrhoids internally there is some suspected inflamed hemorrhoids palpated. Palpation: soft, tender LLQ and guarding; Negative for rebound tenderness present Back/Spine no CVA tenderness and normal ROM Extremity normal to inspection General Extremety ED: Negative for edema General Extremity: Negative for edema Neuro oriented x3 and CN's II-XII intact bilaterally Sensorium / Orientation: alert Motor Exam: strength 5/5 throughout Psych mental status grossly normal Mood & Affect: Negative for depressed or tearful Skin no rashes or lesions noted and no wounds MDM MDM MDM Narrative Medical decision making narrative: Basic blood work showed a creatinine of 1.74. Hemoglobin 15.5. Urinalysis greater than 100 white blood cells but no bacteria 0-5 red cells negative nitrates. He is not have any symptoms with that. CT then pelvis does not show anything acute to explain the patient's pain. He most likely has hemorrhoidal bleeding. I will prescribe some Proctofoam HC. Lab Data Attestation: I reviewed the patient's lab results. Labs: Laboratory Results - last 24 hr 02/11/21 02/11/21 02/11/21 22:30 22:35 22:35 WBC 7.6 RBC 5.38 Hgb 15.5 Hct 47.3 MCV 87.9 MCH 28.8 MCHC 32.8 RDW Std Deviation 41.0 RDW Coeff of Darrell 12.9 Plt Count 238 MPV 8.4 Immature Gran % (Auto) 0.500 Neut % (Auto) 66.0 Lymph % (Auto) 20.3 [place] % (Auto) 9.1 Eos % (Auto) 3.2 Baso % (Auto) 0.9 Absolute Neuts (auto) 5.0 Absolute Lymphs (auto) 1.54 Nucleated RBC % 0 Sodium 138 Potassium 4.2 Chloride 104 Carbon Dioxide 29.0 Anion Gap 5 BUN 28 H Creatinine 1.74 H Estim Creat Clear Calc 42.33 Est GFR (MDRD) Af Amer 51 L Est GFR (MDRD) Non-Af 42 L BUN/Creatinine Ratio 16.1 Glucose 140 H Calcium 8.9 Total Bilirubin 0.60 AST 19 ALT 33 Alkaline Phosphatase 90 Total Protein 7.0 Albumin 3.6 Globulin 3.4 Albumin/Globulin Ratio 1.1 Urine Color Yellow Urine Clarity Sl. Cloudy Urine pH 6.0 Ur Specific [place] 1.015 Urine Protein 30 H Urine Glucose (UA) Normal Urine Ketones Negative Urine Occult Blood 25 H Urine Nitrite Negative Urine Bilirubin Negative Urine Urobilinogen Normal Ur Leukocyte Esterase 500 H Urine RBC 0-5 SEEN Urine WBC >100 SEEN Ur Squamous Epith Cells 0 SEEN Urine Bacteria 0 SEEN Urine Mucus 0 SEEN Radiography Diagnostic Testing: Radiology Impression Abdomen/Pelvis CT 02/11/21 21:25 IMPRESSION: 1. No evidence of acute intra-abdominal abnormality. 2. Nonobstructing bilateral nephrolithiasis. 3. Other nonurgent findings within body of report. Individualized dose optimization techniques were used for this CT. at 2359 Reported and signed by: Ricky Johns MD Electronically Signed: Ricky Johns MD at 23:58 EDT Tel , Service support , Discharge Plan Triage Chief Complaint: Weakness Other Complaint: General Illness ED Provider: Dewayne Randolph Dx/Rx/DC Orders Clinical Impression: Acute lower GI bleeding, Hemorrhoids Instructions: ED Hemorrhoids, ED Lower GI Bleeding (Stable) Prescriptions: New Proctofoam HC 1-1 % foam 1 applic HI TID PRN (Reason: hemorrhoids) Qty: 10 RF: 0 No Action metformin 500 MG tablet 500 mg PO BID RF: 0 aspirin 81 MG tablet 81 mg PO DAILY RF: 0 pantoprazole 40 MG tablet,delayed release (DR/EC) 40 mg PO BID RF: 0 simvastatin 20 MG tablet 20 mg PO QHS RF: 0 flecainide 100 MG tablet 100 mg PO BID RF: 0 lisinopril 5 MG tablet 5 mg PO DAILY RF: 0 acebutolol 200 MG capsule 200 mg PO BID RF: 0 sertraline 50 MG tablet 50 mg PO DAILY RF: 0 cholecalciferol (vitamin D3) 1,000 UNIT tablet 1,000 unit PO DAILY RF: 0 pioglitazone 15 mg tablet 15 mg PO DAILY RF: 0 Eliquis 5 mg tablet 5 mg PO DAILY RF: 0 Primary Care Provider: Devonte Moon Referrals: Devonte Moon MD [Primary Care Provider] - As Needed Disposition Disposition: Home, Self Care
[2021-02-11] MEDS: 0.9% Normal Saline 1,000 ML 999 ML IV (22:36)
[2021-02-11 22:38] VITALS: BP 137/76; PULSE 81; RESP 14; O2SAT 97
[2021-02-11 22:41] LABS: Bacteria 0 SEEN /hpf (None Seen); Mucous, Urine 0 SEEN /hpf (<or=2+); Squamous Epithelial Cells - UA 0 SEEN /hpf (0-5)
[2021-02-11 22:42] LABS: Absolute Lymphocyte Count 1.54 X10^3/uL (0.83-4.51); Basophil# 0.07 X10^3/uL; Basophil% 0.9 % (0-1); Eosinophil# 0.24 X10^3/uL; Eosinophils% 3.2 % (0-5); Hematocrit 47.3 % (40-54); Hemoglobin 15.5 g/dL (13.0-16.5); Lymphocyte # 1.54 X10^3/ul (0.83-4.51); Lymphocyte % 20.3 % (19-41); Mean Corp Hgb Conc 32.8 g/dL (32-36); Mean Corpuscular Hgb 28.8 pg (27.0-32.0); Mean Corpuscular Volume 87.9 fL (80-94); Mean Platelet Vol. 8.4 fl (6.2-12.0); Monocyte# 0.69 X10^3/uL; Monocyte% 9.1 % (0-10); NRBC Flagged by Analyzer 0 % (0-5); Neutrophil # 4.99 X10^3/uL (2.7-7.7); Platelet Count 238 K/mm3 (150-450); RBC Distribution Width CV 12.9 % (11.6-14.6); Red Blood Count 5.38 M/mm3 (4.6-6.2); White Blood Count 7.6 K/mm3 (4.4-11.0)
[2021-02-11 22:42] LABS: Color, Urine Yellow (Yellow); Glucose, Dipstick Normal (Normal); Ketone-Dipstick Negative (Negative); Leukocyte Esterase-Dipstick 500 /ul (Negative); Nitrite-Dipstick Negative (Negative); Occult Blood-Urine 25 /ul (Negative); Protein-Dipstick 30 mg/dl (Negative); Specific Gravity, Urine 1.015 (1.002-1.030); Urine Bilirubin Dipstick Negative (Negative); Urine Clarity Sl. Cloudy (Clear); Urine Urobilinogen Normal (Normal)
[2021-02-11 22:48] LABS: Red Blood Cells-Urine 0-5 SEEN /hpf (0-5); White Blood Cells >100 SEEN /hpf (0-5)
[2021-02-11 23:00] LABS: ALB/GLOB Ratio 1.1 RATIO (0.9-2.4); AST(SGOT) 19 U/L (15-37); Alanine Aminotransfer ALT/SGPT 33 U/L (16-61); Albumin, Serum 3.6 g/dL (3.2-5.0); Alkaline Phosphatase 90 U/L (45-117); Anion Gap 5 (5-15); BUN 28 mg/dL (7-18); BUN/Creat Ratio 16.1 RATIO (10-20); Calcium,Total 8.9 mg/dL (8.5-10.1); Chloride 104 mmol/L (98-107); Creatinine, Serum 1.74 mg/dL (0.70-1.30); EST Glomerular Filtration Rate 42 mL/min (>60); Est Glom Filt Rate - Afr Amer 51 mL/min (>60); Estimated Creatinine Clearance 42.33 ml/min; Globulin 3.4 g/dL (2.2-4.2); Glucose 140 mg/dL (74-106); Potassium 4.2 mmol/L (3.5-5.1); Sodium Level 138 mmol/L (136-145)
[2021-02-12 00:17] VITALS: BP 130/76; PULSE 66; RESP 18; O2SAT 96
== END 2021-02-12 00:19 | disposition home or self-care (01) ==
PROVIDERS: Emergency Provider Emergency Medicine; PCP Family Medicine
DX: K92.2 Gastrointestinal hemorrhage, unspecified (principal); K64.4 Residual hemorrhoidal skin tags; I48.0 Paroxysmal atrial fibrillation; E66.01 Morbid (severe) obesity due to excess calories; E11.9 Type 2 diabetes mellitus without complications; I10 Essential (primary) hypertension; I48.92 Unspecified atrial flutter; Z79.84 Long term (current) use of oral hypoglycemic drugs; Z79.82 Long term (current) use of aspirin; Z79.899 Other long term (current) drug therapy; Z79.01 Long term (current) use of anticoagulants; Z87.891 Personal history of nicotine dependence
CPT/HCPCS: 74177; 80053; 81001; 85025; 96360; 96361; 99284; J7030; Q9967; A4216

== ENCOUNTER 2021-03-19 15:54 | Emergency (ER) | payer MEDICARE, SELFPAY ==
[2021-03-19 15:55] VITALS: BP 135/89; PULSE 101; RESP 22; TEMP 36.8; O2SAT 98; BMI 41.3
[2021-03-19 17:33] VITALS: BP 135/89; PULSE 101; RESP 22; TEMP 36.8; O2SAT 98
--- NOTE | 2021-03-19 18:12 | EKG12_ITS ---
Test Reason : DYSRHYTHMIA Blood Pressure : / mmHG Vent. Rate : 098 BPM Atrial Rate : 375 BPM P-R Int : 000 ms QRS Dur : 088 ms QT Int : 346 ms P-R-T Axes : 000 048 014 degrees QTc Int : 441 ms Atrial fibrillation Nonspecific ST abnormality Abnormal ECG Confirmed by DIANA BLACKMON, MONIKA ([id number]), mapping editor PATRICIA CORDON ([id number]) on 03/20/2021 1:52:11 PM Referred By: LIZETH Confirmed By:MONIKA ORTIZ MD
[2021-03-19 18:41] LABS: Mucous, Urine 0 SEEN /hpf (<or=2+)
[2021-03-19 18:46] LABS: Color, Urine Yellow (Yellow); Glucose, Dipstick Normal (Normal); Ketone-Dipstick 5 mg/dl (Negative); Leukocyte Esterase-Dipstick 500 /ul (Negative); Nitrite-Dipstick Positive (Negative); Occult Blood-Urine 250 /ul (Negative); Protein-Dipstick 30 mg/dl (Negative); Specific Gravity, Urine 1.015 (1.002-1.030); Urine Clarity Clear (Clear); Urine Urobilinogen 8 mg/dl (Normal)
[2021-03-19 19:03] LABS: Urine Bilirubin Dipstick 6 mg/dL (Negative)
--- NOTE | 2021-03-19 19:05 | RAD_ITS ---
INDICATION: cough EXAMINATION/TECHNIQUE: X-RAY - XR Chest 1 View COMPARISON: None. FINDINGS: The lungs are clear. The cardiomediastinal silhouette is unremarkable. No pleural effusion or pneumothorax. No acute osseous abnormalities. RAD/Chest 1 View (Portable) IMPRESSION: No acute radiographic abnormalities. Electronically Signed: Justin Herrera MD at 19:20 EDT Tel , Service support ,
[2021-03-19 19:06] VITALS: BP 126/95; PULSE 101; RESP 20; O2SAT 97
--- NOTE | 2021-03-19 19:09 | EDS_ITS ---
HPI History of Present Illness Chief Complaint: General Illness Narrative Narrative: 65-year-old male presenting with cough, fever, chills, body aches since Friday. Patient states he has nausea without vomiting. He has decreased p.o. intake because he is not hungry. Patient does state that he has diarrhea and dysuria. He states he has urinary frequency as well. He admits to right flank pain in addition to this and states that on his last visit he had kidney stones brewing. Patient has history of BPH. He states he is never had a UTI. Patient denies chest pain.He states he only feels short of breath when he is wearing a mask. He was mass he was vaccinated for COVID-19 with the Get[employer]ik[employer] vaccine. [facility] Medical History Atrial flutter Diabetes mellitus HTN (hypertension) Morbid obesity Paroxysmal atrial fibrillation Home Medications aspirin 81 mg PO DAILY 03/26/18 [History Last Taken 02/14/20 09:00] flecainide 100 mg PO BID 03/26/18 [History Last Taken 02/14/20 17:00] lisinopril 5 mg PO DAILY 03/26/18 [History Last Taken 02/14/20 09:00] metformin 1,000 mg PO BID 03/26/18 [History Last Taken 02/14/20 17:00] pantoprazole 40 mg PO BID 03/26/18 [History Last Taken 02/14/20 17:00] sertraline 50 mg PO DAILY 03/26/18 [History Last Taken 02/14/20 09:00] cholecalciferol (vitamin D3) 1,000 unit PO DAILY 02/14/20 [History Last Taken 02/14/20 09:00] apixaban [Eliquis] 5 mg PO DAILY 02/11/21 [History Last Taken Unknown] pioglitazone 15 mg PO DAILY 02/11/21 [History Last Taken Unknown] hydrocortisone-pramoxine [Proctofoam HC] 1 applic FL TID PRN #10 g 02/12/21 [Rx Last Taken Unknown] cefpodoxime 200 mg PO BID #28 tab 03/20/21 [Rx Last Taken Unknown] promethazine 25 mg PO Q6H PRN PRN #14 tablet 03/20/21 [Rx Last Taken Unknown] Allergy/AdvReac Type Severity Reaction Status Date / Time lanolin Allergy Unknown Verified 03/19/21 17:35 wool Allergy Hives Verified 03/19/21 17:35 Social History (Updated 02/11/21 @ 21:[address] Dewayne Randolph, DO) Smoking Status: Former smoker substance use type: does not use ROS ROS ED Constitutional Constitutional ED: Reports chills and fever(s) Eyes Eyes: Denies blurry vision or diplopia ENT ENT ED: Reports rhinorrhea; Denies sore throat Cardiovascular Cardiovascular: Denies chest pain or palpitations Respiratory/Chest Respiratory/Chest: Reports cough and dyspnea; Denies sputum Gastrointestinal Gastrointestinal: Reports diarrhea and nausea; Denies abdominal pain Genitourinary Genitourinary ED: Reports dysuria, hematuria and urinary frequency Musculoskeletal Musculoskeletal: Reports myalgias; Denies arthralgias, back pain or neck pain Integumentary Denies Abrasions or rash Neurologic Neurologic: Reports headache(s); Denies paresthesias or weakness EXAM Physical Exam Const Vital Signs: 03/19/21 15:55 03/19/21 17:33 03/19/21 17:42 Temperature 98.3 F 98.3 F Temperature Source Temporal Temporal Pulse Rate 101 H 101 H Respiratory Rate 22 H 22 H Respiratory Pattern Normal Blood Pressure 135/89 H 135/89 H Blood Pressure Mean 104 104 Pulse Ox 98 98 Oxygen Delivery Method Room Air Room Air 03/19/21 19:06 03/19/21 23:15 03/20/21 00:27 Temperature 98.5 F 98.5 F Temperature Source Temporal Temporal Pulse Rate 101 H 114 H 114 H Respiratory Rate 20 H 15 15 Respiratory Pattern Blood Pressure 126/95 H 145/109 H 145/109 H Blood Pressure Mean 105 121 121 Pulse Ox 97 98 98 Oxygen Delivery Method Room Air Room Air Room Air Positive well nourished General Appearance ED: NAD; Negative for pallor HEENT Reports moist mucous membranes Negative for trauma Eyes PERRL and EOMs intact bilaterally General Eye ED: Negative for pale conjunctiva or scleral icterus Resp normal respiratory effort and clear to auscultation bilaterally Cardio regular rhythm Rate: tachycardic GI normal to inspection, nondistended, normoactive bowel sounds Back/Spine General Back: CVA tenderness right Neuro oriented x3 Sensorium / Orientation: alert Psych mental status grossly normal Skin no rashes or lesions noted and no wounds General Skin Exam: Negative for jaundice or pallor MDM MDM MDM Narrative Medical decision making narrative: Patient presenting with right CVA tenderness as well as dysuria. He is also complaining of some of chills and body aches. Patient has no history of UTI. He was tested for COVID-19 is negative. Chest x-ray on my interpretation shows no acute cardiopulmonary process and the radiologist does agree. He has an EKG which shows atrial fibrillation at 90 bpm without signs of ischemic changes. Troponin was 27. CBC is within normal limits. Renal function is slightly abnormal however only slightly above his baseline. His other electrolytes are unremarkable. Patient's initial lactic acid was 3.0 so he was given IV fluids and repeat of this is 1.6. Urinalysis was consistent with UTI and patient was given Rocephin in the ED. I did obtain a CT of the abdomen pelvis which did not show any acute intra-abdominal process. The patient still had some residual nausea and was given another dose of Zofran. When asked how he is feeling he states I just do not feel good. He cannot describe to me what does not feel good. I did note to him that his liver enzymes were elevated with a bilirubin of 5.6, AST 28, ALT 45, alk phosphatase 310. He states he has not had an elevation in this in the past. I am not sure that this alone warrants his admission because from a pyelonephritis standpoint I feel the patient can be discharged safely. I discussed the case with Dr. Carlos Garcia is on-call for his physician who agreed. Patient will be seen in close follow-up he needs to call the office. He is counseled to hydrate well he was given Phenergan and antibiotics for home for pyelonephritis. Patient is given return precautions. I did give him a referral for Dr. Dashawn DILLARD. Impression: 1. Pyelonephritis 2. Transaminitis 3. Dehydration Lab Data Attestation: I reviewed the patient's lab results. Labs: Laboratory Results - last 24 hr 03/19/21 03/19/21 03/19/21 18:35 19:06 19:06 WBC 7.5 RBC 5.24 Hgb 14.9 Hct 46.0 MCV 87.8 MCH 28.4 MCHC 32.4 RDW Std Deviation 40.4 RDW Coeff of Darrell 12.6 Plt Count 190 MPV 9.3 Immature Gran % (Auto) 0.400 Neut % (Auto) 86.9 H Lymph % (Auto) 3.9 L [place] % (Auto) 8.3 Eos % (Auto) 0.1 Baso % (Auto) 0.4 Absolute Neuts (auto) 6.5 Absolute Lymphs (auto) 0.29 L Nucleated RBC % 0 Differential Comment SCANNED Sodium 132 L Potassium 4.0 Chloride 97 L Carbon Dioxide 24.0 Anion Gap 11 BUN 31 H Creatinine 1.92 H Estim Creat Clear Calc 38.36 Est GFR (MDRD) Af Amer 45 L Est GFR (MDRD) Non-Af 37 L BUN/Creatinine Ratio 16.1 Glucose 162 H Lactic Acid Calcium 8.8 Total Bilirubin 5.60 H AST 228 H ALT 485 H Alkaline Phosphatase 310 H Troponin I High Sens 27 Total Protein 7.3 Albumin 3.1 L Globulin 4.2 Albumin/Globulin Ratio 0.7 L Procalcitonin Urine Color Yellow Urine Clarity Clear Urine pH 5.0 Ur Specific [place] 1.015 Urine Protein 30 H Urine Glucose (UA) Normal Urine Ketones 5 H Urine Occult Blood 250 H Urine Nitrite Positive H Urine Bilirubin 6 H Urine Urobilinogen 8 H Ur Leukocyte Esterase 500 H Urine RBC 5-10 SEEN Urine WBC 25-50 SEEN Ur Squamous Epith Cells 0-5 SEEN Amorphous Sediment 1+ URATE Urine Bacteria 1+ Urine Mucus 0 SEEN 03/19/21 03/19/21 03/19/21 19:06 19:06 23:35 WBC RBC Hgb Hct MCV MCH MCHC RDW Std Deviation RDW Coeff of Darrell Plt Count MPV Immature Gran % (Auto) Neut % (Auto) Lymph % (Auto) [place] % (Auto) Eos % (Auto) Baso % (Auto) Absolute Neuts (auto) Absolute Lymphs (auto) Nucleated RBC % Differential Comment Sodium Potassium Chloride Carbon Dioxide Anion Gap BUN Creatinine Estim Creat Clear Calc Est GFR (MDRD) Af Amer Est GFR (MDRD) Non-Af BUN/Creatinine Ratio Glucose Lactic Acid 3.0 H* 1.6 Calcium Total Bilirubin AST ALT Alkaline Phosphatase Troponin I High Sens Total Protein Albumin Globulin Albumin/Globulin Ratio Procalcitonin 11.72 H Urine Color Urine Clarity Urine pH Ur Specific [place] Urine Protein Urine Glucose (UA) Urine Ketones Urine Occult Blood Urine Nitrite Urine Bilirubin Urine Urobilinogen Ur Leukocyte Esterase Urine RBC Urine WBC Ur Squamous Epith Cells Amorphous Sediment Urine Bacteria Urine Mucus Radiography Diagnostic Testing: Radiology Impression Chest X-Ray 03/19/21 19:05 IMPRESSION: No acute radiographic abnormalities. Electronically Signed: Justin Herrera MD at 19:20 EDT Tel , Service support , Abdomen/Pelvis CT 03/19/21 19:25 IMPRESSION: No acute abnormalities in the abdomen or pelvis. There is stable nonobstructing calyceal stones. There is no ureteral obstruction. There has been no significant change from the reference examination. Individualized dose optimization techniques were used for this CT. at 2015 Reported and signed by: Alli Banda MD Electronically Signed: Alli Banda MD at 20:14 EDT Tel , Service support , Discharge Plan Triage Chief Complaint: General Illness ED Provider: Sharif Riojas Dx/Rx/DC Orders Instructions: Tests for Liver Disease, ED Dehydration (Adult), ED Pyelonephritis, Male (Adult) Prescriptions: New cefpodoxime 200 mg tablet 200 mg PO BID Qty: 28 RF: 0 promethazine 25 mg tablet 25 mg PO Q6H PRN PRN (Reason: Nausea) Qty: 14 RF: 0 No Action metformin 500 MG tablet 1,000 mg PO BID RF: 0 aspirin 81 MG tablet 81 mg PO DAILY RF: 0 pantoprazole 40 MG tablet,delayed release (DR/EC) 40 mg PO BID RF: 0 flecainide 100 MG tablet 100 mg PO BID RF: 0 lisinopril 5 MG tablet 5 mg PO DAILY RF: 0 sertraline 50 MG tablet 50 mg PO DAILY RF: 0 cholecalciferol (vitamin D3) 1,000 UNIT tablet 1,000 unit PO DAILY RF: 0 pioglitazone 15 mg tablet 15 mg PO DAILY RF: 0 Eliquis 5 mg tablet 5 mg PO DAILY RF: 0 Proctofoam HC 1-1 % foam 1 applic FL TID PRN (Reason: hemorrhoids) Qty: 10 RF: 0 Primary Care Provider: Devonte Moon Referrals: Alex Tamez DO [STAFF PHYSICIAN] - As soon as possible Devonte Moon MD [Primary Care Provider] - Disposition Disposition: Home, Self Care
[2021-03-19 19:15] LABS: Amorphous Sediment 1+ URATE; Bacteria 1+ /hpf (None Seen); Red Blood Cells-Urine 5-10 SEEN /hpf (0-5); Squamous Epithelial Cells - UA 0-5 SEEN /hpf (0-5); White Blood Cells 25-50 SEEN /hpf (0-5)
--- NOTE | 2021-03-19 19:25 | CT_ITS ---
EXAM: CT ABDOMEN AND PELVIS WITHOUT INTRAVENOUS CONTRAST : 1955 CLINICAL INDICATION: right flank pain TECHNIQUE: Helically acquired images were obtained of the abdomen and pelvis without intravenous contrast. This CT exam was performed using one or more of the following dose reduction techniques: automated exposure control, adjustment of the mA and/or kV according to patient size, and/or use of iterative reconstruction technique. This report was created using Spor report generation technology. COMPARISON: 02/11/2021 FINDINGS: LOWER THORAX: Unremarkable. Lung bases are clear. No cardiomegaly. No significant pericardial effusion. ABDOMEN: LIVER: Unremarkable. Homogeneous. GALLBLADDER AND BILE DUCTS: Unremarkable. No calcified gallstones. No gallbladder distention or wall edema. No intra- or extrahepatic biliary ductal dilation. PANCREAS: Unremarkable. No focal cystic mass. SPLEEN: Unremarkable. Normal size without focal cystic or solid mass. ADRENALS: Unremarkable. No nodules. KIDNEYS AND URETERS: There are bilateral nonobstructing calyceal stones. There is no ureteral obstruction. There are stable simple cysts on the right kidney. No follow-up imaging is necessary. Normal renal size and position. STOMACH AND BOWEL: Unremarkable. No stomach or bowel distention. No focal inflammatory change. PELVIS: APPENDIX: No evidence of acute appendicitis. BLADDER: Unremarkable. REPRODUCTIVE: Unremarkable as visualized. No mass. ABDOMEN and PELVIS: INTRAPERITONEAL SPACE: Unremarkable. No ascites or other fluid collection. No free air. BONES/JOINTS: Unremarkable. No suspicious lytic or blastic abnormality. SOFT TISSUES: Unremarkable. No discrete abdominal or pelvic wall hernia. VASCULATURE: Unremarkable. Abdominal aorta is non-dilated. LYMPH NODES: Unremarkable. No enlarged lymph nodes. CT/Abdomen/Pelvis without Cont IMPRESSION: No acute abnormalities in the abdomen or pelvis. There is stable nonobstructing calyceal stones. There is no ureteral obstruction. There has been no significant change from the reference examination. Individualized dose optimization techniques were used for this CT. at 2015 Reported and signed by: Alli Banda MD Electronically Signed: Alli Banda MD at 20:14 EDT Tel , Service support ,
[2021-03-19] MEDS: Ceftriaxone 1 GM/50 ML BAG IV (20:15)
[2021-03-19 20:21] LABS: Absolute Lymphocyte Count 0.29 X10^3/uL (0.83-4.51); Absolute Neutrophil Count 6.5 X10^3/uL (2.0-7.7); Basophil# 0.03 X10^3/uL; Basophil% 0.4 % (0-1); Eosinophil# 0.01 X10^3/uL; Eosinophils% 0.1 % (0-5); Hemoglobin 14.9 g/dL (13.0-16.5); Lymphocyte # 0.29 X10^3/ul (0.83-4.51); Lymphocyte % 3.9 % (19-41); Mean Corp Hgb Conc 32.4 g/dL (32-36); Mean Corpuscular Hgb 28.4 pg (27.0-32.0); Mean Corpuscular Volume 87.8 fL (80-94); Mean Platelet Vol. 9.3 fl (6.2-12.0); Monocyte# 0.62 X10^3/uL; Monocyte% 8.3 % (0-10); NRBC Flagged by Analyzer 0 % (0-5); Neutrophil # 6.49 X10^3/uL (2.7-7.7); Neutrophil % 86.9 % (47-70); POSITIVE DIFFERENTIAL YES; Platelet Count 190 K/mm3 (150-450); RBC Distribution Width CV 12.6 % (11.6-14.6); RBC Distribution Width SD 40.4 fl (35.1-43.9); Red Blood Count 5.24 M/mm3 (4.6-6.2); White Blood Count 7.5 K/mm3 (4.4-11.0)
[2021-03-19 20:28] LABS: Differential Indicated SCAN CRITERIA MET
[2021-03-19 20:41] LABS: ALB/GLOB Ratio 0.7 RATIO (0.9-2.4); AST(SGOT) 228 U/L (15-37); Alanine Aminotransfer ALT/SGPT 485 U/L (16-61); Albumin, Serum 3.1 g/dL (3.2-5.0); Alkaline Phosphatase 310 U/L (45-117); Anion Gap 11 (5-15); BUN 31 mg/dL (7-18); BUN/Creat Ratio 16.1 RATIO (10-20); Calcium,Total 8.8 mg/dL (8.5-10.1); Chloride 97 mmol/L (98-107); Creatinine, Serum 1.92 mg/dL (0.70-1.30); EST Glomerular Filtration Rate 37 mL/min (>60); Est Glom Filt Rate - Afr Amer 45 mL/min (>60); Estimated Creatinine Clearance 38.36 ml/min; Globulin 4.2 g/dL (2.2-4.2); Glucose 162 mg/dL (74-106); Protein, Total 7.3 g/dL (6.4-8.2); Sodium Level 132 mmol/L (136-145); Troponin-I HS 27 pg/mL (3.0-78.0)
[2021-03-19 20:51] LABS: Procalcitonin 11.72 ng/mL (0.00-0.09)
--- NOTE | 2021-03-19 20:51 | ED.RN ---
lactic of 3.0 reported to . verbalizes understanding
[2021-03-19 20:58] LABS: Differential Comment SCANNED
[2021-03-19] MEDS: 0.9% Normal Saline 1,000 ML 999 ML IV (22:48)
[2021-03-19] MEDS: Ondansetron 4 MG/2 ML Vial IV (23:13)
[2021-03-19 23:15] VITALS: BP 145/109; PULSE 114; RESP 15; TEMP 36.9; O2SAT 98
[2021-03-20 00:16] LABS: Reflex Lactate? Y
[2021-03-20 00:17] LABS: Lactic Acid 1.6 mmol/L (0.4-1.9)
[2021-03-20 00:27] VITALS: BP 145/109; PULSE 114; RESP 15; TEMP 36.9; O2SAT 98
[2021-03-20 01:18] VITALS: BP 129/81; BP 145/109; PULSE 114; PULSE 87; RESP 15; RESP 18; TEMP 36.9; O2SAT 98; O2SAT 99
== END 2021-03-20 01:19 | disposition home or self-care (01) ==
PROVIDERS: Emergency Provider Student in an Organized Health Care Education/Training Program; PCP Family Medicine
DX: N12 Tubulo-interstitial nephritis, not specified as acute or chronic (principal); R74.01 Elevation of levels of liver transaminase levels; E86.0 Dehydration; I10 Essential (primary) hypertension; E11.9 Type 2 diabetes mellitus without complications; Z79.01 Long term (current) use of anticoagulants; Z79.82 Long term (current) use of aspirin; Z79.84 Long term (current) use of oral hypoglycemic drugs; Z87.442 Personal history of urinary calculi; Z87.891 Personal history of nicotine dependence; Z79.899 Other long term (current) drug therapy
CPT/HCPCS: 36415; 71045; 74176; 80053; 81001; 83605; 84145; 84484; 85025; 87040; 87077; 87086; 87088; 87186; 87426; 93005; 96365; 96375; 99285; J7030; J7050; A4216; J2405

== ENCOUNTER 2021-08-24 08:54 | Emergency (ER) | payer MEDICARE, SELFPAY ==
[2021-08-24 08:55] VITALS: BP 149/91; PULSE 65; RESP 18; TEMP 37.1; O2SAT 95; BMI 43.2
--- NOTE | 2021-08-24 09:55 | RAD_ITS ---
STUDY: X-RAY CHEST REASON FOR EXAM: Male, 66 years old. Dyspnea TECHNIQUE: Single AP portable view of the chest. COMPARISON: Comparison is made with prior examination of 03/19/2021. FINDINGS: EKG electrodes are seen. The lungs are clear and expanded. There is no demonstrated pleural abnormality. Normal size heart. Normal mediastinum and mariaelena. Normal visualized pulmonary arteries. Normal visualized aortic arch and descending thoracic aorta. Normal visualized thoracic spine. Fusion of the lower cervical spine. Moderate sized hiatal hernia. RAD/Chest 1 View (Portable) IMPRESSION: The lungs are clear. Hiatal hernia. Electronically Signed: Michael Sepulveda MD at 10:24 EST ,
--- NOTE | 2021-08-24 09:56 | EKG12_ITS ---
Test Reason : SOB Blood Pressure : / mmHG Vent. Rate : 060 BPM Atrial Rate : 060 BPM P-R Int : 224 ms QRS Dur : 096 ms QT Int : 460 ms P-R-T Axes : 037 055 049 degrees QTc Int : 460 ms Sinus rhythm with 1st degree A-V block Otherwise normal ECG Confirmed by DIANA BLACKMON, MONIKA ([id number]), index editor MARCIO GAY ([id number]) on 08/27/2021 12:15:34 PM Referred By: FAY Confirmed By:MONIKA ORTIZ MD
[2021-08-24 10:07] LABS: Absolute Lymphocyte Count 0.58 X10^3/uL (0.83-4.51); Absolute Neutrophil Count 5.7 X10^3/uL (2.0-7.7); Basophil# 0.04 X10^3/uL; Basophil% 0.5 % (0-1); Eosinophil# 0.42 X10^3/uL; Eosinophils% 5.7 % (0-5); Hematocrit 43.4 % (40-54); Lymphocyte # 0.58 X10^3/ul (0.83-4.51); Lymphocyte % 7.9 % (19-41); Mean Corp Hgb Conc 34.6 g/dL (32-36); Mean Corpuscular Hgb 29.6 pg (27.0-32.0); Mean Corpuscular Volume 85.8 fL (80-94); Mean Platelet Vol. 8.4 fl (6.2-12.0); Monocyte# 0.65 X10^3/uL; Monocyte% 8.8 % (0-10); NRBC Flagged by Analyzer 0 % (0-5); Neutrophil # 5.66 X10^3/uL (2.7-7.7); Neutrophil % 76.7 % (47-70); POSITIVE DIFFERENTIAL YES; Platelet Count 229 K/mm3 (150-450); RBC Distribution Width CV 12.9 % (11.6-14.6); RBC Distribution Width SD 39.9 fl (35.1-43.9); Red Blood Count 5.06 M/mm3 (4.6-6.2); White Blood Count 7.4 K/mm3 (4.4-11.0)
[2021-08-24 10:13] VITALS: O2SAT 92
[2021-08-24 10:23] LABS: AST(SGOT) 28 U/L (15-37); Alanine Aminotransfer ALT/SGPT 32 U/L (16-61); Albumin, Serum 3.4 g/dL (3.2-5.0); Alkaline Phosphatase 85 U/L (45-117); Anion Gap 4 (5-15); BUN 22 mg/dL (7-18); Calcium,Total 8.8 mg/dL (8.5-10.1); Chloride 103 mmol/L (98-107); Creatinine, Serum 1.69 mg/dL (0.70-1.30); EST Glomerular Filtration Rate 43 mL/min (>60); Est Glom Filt Rate - Afr Amer 52 mL/min (>60); Globulin 3.5 g/dL (2.2-4.2); Glucose 143 mg/dL (74-106); Potassium 4.9 mmol/L (3.5-5.1); Protein, Total 6.9 g/dL (6.4-8.2); Sodium Level 135 mmol/L (136-145); Troponin-I HS 11 pg/mL (3.0-78.0)
[2021-08-24 10:37] LABS: Differential Indicated SCAN CRITERIA MET
[2021-08-24 10:58] LABS: BNP,B-Type NATRIURETIC PEPTIDE 70.8 pg/mL (0-100)
[2021-08-24 11:47] VITALS: BP 124/75; O2SAT 92
[2021-08-24 11:56] VITALS: O2SAT 92
--- NOTE | 2021-08-24 12:47 | EDS_ITS ---
HPI History of Present Illness Chief Complaint: Shortness of Breath Informant: patient Onset/Context/Timing Onset: Days Context: gradual Timing: Waxes and wanes Quality: Positive for Wheezing Worsened by: Nothing Relieved by: Oxygen Associated Symptoms cough, rhinorrhea, fever, subjective and yellow sputum; Negative for ear pain, sore throat, chills, sweats, clear sputum, white sputum or green sputum Chest Pain: Positive for Tightness Narrative Narrative: Patient presents with shortness of breath that has been getting worse over the past few days. Patient states that his legs have also gotten more swollen over the past few days. Patient states his breathing is better with oxygen. Patient admits to a cough with some yellow sputum. Patient also admits to some rhinorrhea. Patient mitts to subjective fevers but denies taking his temperature. Patient admits to some pain in his substernal area. Patient states he feels like he is wheezing. PE Risk Factors: Negative for Cancer, OCP + Smoking + > 35, Prior DVT or PE, Recent immobilization, Recent surgery and Recent travel [facility] Medical History Atrial flutter Diabetes mellitus HTN (hypertension) Morbid obesity Paroxysmal atrial fibrillation Home Medications aspirin 81 mg PO DAILY 03/26/18 [History Last Taken 02/14/20 09:00] flecainide 100 mg PO BID 03/26/18 [History Last Taken 02/14/20 17:00] lisinopril 5 mg PO DAILY 03/26/18 [History Last Taken 02/14/20 09:00] metformin 1,000 mg PO BID 03/26/18 [History Last Taken 02/14/20 17:00] pantoprazole 40 mg PO BID 03/26/18 [History Last Taken 02/14/20 17:00] sertraline 50 mg PO DAILY 03/26/18 [History Last Taken 02/14/20 09:00] cholecalciferol (vitamin D3) 1,000 unit PO DAILY 02/14/20 [History Last Taken 02/14/20 09:00] apixaban [Eliquis] 5 mg PO DAILY 02/11/21 [History Last Taken Unknown] pioglitazone 15 mg PO DAILY 02/11/21 [History Last Taken Unknown] hydrocortisone-pramoxine [Proctofoam HC] 1 applic RI TID PRN #10 g 02/12/21 [Rx Last Taken Unknown] cefpodoxime 200 mg PO BID #28 tab 03/20/21 [Rx Last Taken Unknown] promethazine 25 mg PO Q6H PRN PRN #14 tablet 03/20/21 [Rx Last Taken Unknown] Allergy/AdvReac Type Severity Reaction Status Date / Time lanolin Allergy Unknown Verified 03/19/21 17:35 wool Allergy Hives Verified 03/19/21 17:35 Social History Smoking Status: Former smoker substance use type: does not use ROS ROS ED Constitutional Constitutional ED: Reports fever(s); Denies chills Eyes Eyes: Denies blurry vision or change in vision ENT ENT ED: Reports rhinorrhea; Denies sore throat Cardiovascular Cardiovascular: Reports chest pain; Denies palpitations Respiratory/Chest Respiratory/Chest: Reports cough and dyspnea Gastrointestinal Gastrointestinal: Denies nausea or vomiting Genitourinary Genitourinary ED: Denies dysuria or hematuria Musculoskeletal Musculoskeletal: Reports neck pain; Denies back pain Integumentary Denies abscess or rash Neurologic Neurologic: Denies headache(s) or weakness Allergic/Immunologic Allergic/Immunologic ED: Denies mouth swelling or urticaria EXAM Physical Exam Const Vital Signs: 08/24/21 08:55 08/24/21 10:13 08/24/21 11:47 Temperature 98.7 F Temperature Source Oral Pulse Rate 65 Respiratory Rate 18 Blood Pressure 149/91 H 124/75 H Blood Pressure Mean 110 91 Pulse Ox 95 92 92 Oxygen Delivery Method Room Air Room Air Room Air 08/24/21 13:20 Temperature Temperature Source Pulse Rate 89 Respiratory Rate 16 Blood Pressure 130/77 H Blood Pressure Mean Pulse Ox 99 Oxygen Delivery Method Positive well nourished, well developed and obese General Appearance ED: well developed Nutritional Appearance: obese HEENT Reports moist mucous membranes atraumatic Neck supple and no JVD Resp normal respiratory effort Auscultation: diminished lung sounds diffuse Cardio regular rate and regular rhythm GI non-tender and non-distended Auscultation: normoactive bowel sounds Palpation: soft Extremity General Extremety ED: Yes edema; Negative for tenderness General Extremity: edema Neuro oriented x3, CN's II-XII intact bilaterally and no sensory deficits noted Sensorium / Orientation: alert Motor Exam: strength 5/5 throughout Psych mental status grossly normal MDM MDM MDM Narrative Medical decision making narrative: EKG was obtained. On my interpretation, it showed a sinus rhythm with a first-degree AV block with a rate of 60. RI interval was prolonged at 224 ms. QRS interval, and QTc intervals were normal. [place] was normal. There are no acute ST or T wave changes. COVID-19 rapid antigen was obtained and was negative. Portable 1 view chest x-ray was obtained. On my interpretation, lung minor are clear. There is normal cardiac silhouette. Bony thorax is normal. There is no acute process noted. There is a hiatal hernia noted. Radiologist also interpreted the x-ray and agrees. CBC was within normal limits. Comprehensive metabolic profile showed a slightly elevated BUN of 22 and creatinine of 1.69. These are consistent with prior results. High-sensitivity troponin was normal at 11. B-natriuretic peptide was normal at 70.8. Patient was able to ambulate in the emergency department. Patient did not become hypoxic while ambulating. Patient feels better and wants to go home. Patient was instructed to follow-up with his primary care physician in 3 to 5 days. Patient was instructed return if worse in any way. Patient understood and was agreeable with the plan. All questions were answered. Lab Data Attestation: I reviewed the patient's lab results. Labs: Laboratory Results - last 24 hr 08/24/21 08/24/21 08/24/21 09:45 09:45 09:45 WBC 7.4 RBC 5.06 Hgb 15.0 Hct 43.4 MCV 85.8 MCH 29.6 MCHC 34.6 RDW Std Deviation 39.9 RDW Coeff of Darrell 12.9 Plt Count 229 MPV 8.4 Immature Gran % (Auto) 0.400 Neut % (Auto) 76.7 H Lymph % (Auto) 7.9 L [place] % (Auto) 8.8 Eos % (Auto) 5.7 H Baso % (Auto) 0.5 Absolute Neuts (auto) 5.7 Absolute Lymphs (auto) 0.58 L Nucleated RBC % 0 Differential Comment COMMENT Sodium 135 L Potassium 4.9 Chloride 103 Carbon Dioxide 28.0 Anion Gap 4 L BUN 22 H Creatinine 1.69 H Estim Creat Clear Calc 43.00 Est GFR (MDRD) Af Amer 52 L Est GFR (MDRD) Non-Af 43 L BUN/Creatinine Ratio 13.0 Glucose 143 H Calcium 8.8 Total Bilirubin 1.00 AST 28 ALT 32 Alkaline Phosphatase 85 Troponin I High Sens 11 B-Natriuretic Peptide 70.8 Total Protein 6.9 Albumin 3.4 Globulin 3.5 Albumin/Globulin Ratio 1.0 Radiography Chest X-Ray - ED: 1 View, Read by ED Physician, Read by Radiologist and No Acute Disease Diagnostic Testing: Clinical Impression(s) from Imaging Studies Chest X-Ray 08/24/21 09:55 IMPRESSION: The lungs are clear. Hiatal hernia. Electronically Signed: Michael Sepulveda MD at 10:24 EST , EKG Initial EKG: Attestation: I personally reviewed and interpreted this EKG as follows: Interpretation: Sinus Rhythm (With first-degree AV block with a rate of 60) and No Acute Injury Pattern Discharge Plan Triage Chief Complaint: Shortness of Breath ED Provider: Adrian Herrera Dx/Rx/DC Orders Clinical Impression: Dyspnea Instructions: ED Dyspnea Prescriptions: No Action metformin 500 MG tablet 1,000 mg PO BID RF: 0 aspirin 81 MG tablet 81 mg PO DAILY RF: 0 pantoprazole 40 MG tablet,delayed release (DR/EC) 40 mg PO BID RF: 0 flecainide 100 MG tablet 100 mg PO BID RF: 0 lisinopril 5 MG tablet 5 mg PO DAILY RF: 0 sertraline 50 MG tablet 50 mg PO DAILY RF: 0 cholecalciferol (vitamin D3) 1,000 UNIT tablet 1,000 unit PO DAILY RF: 0 pioglitazone 15 mg tablet 15 mg PO DAILY RF: 0 Eliquis 5 mg tablet 5 mg PO DAILY RF: 0 Proctofoam HC 1-1 % foam 1 applic RI TID PRN (Reason: hemorrhoids) Qty: 10 RF: 0 cefpodoxime 200 mg tablet 200 mg PO BID Qty: 28 RF: 0 promethazine 25 mg tablet 25 mg PO Q6H PRN PRN (Reason: Nausea) Qty: 14 RF: 0 Primary Care Provider: Devonte Moon Referrals: Devonte Moon MD [Primary Care Provider] - 3-5 Days Disposition Disposition: Home, Self Care Discharge Date/Time: 08/24/21 13:21
[2021-08-24 13:20] VITALS: BP 130/77; PULSE 89; RESP 16; O2SAT 99
== END 2021-08-24 13:21 | disposition home or self-care (01) ==
PROVIDERS: Emergency Provider Emergency Medicine; PCP Family Medicine; Visit Provider Emergency Medicine
DX: R06.00 Dyspnea, unspecified (principal); E66.9 Obesity, unspecified; R06.02 Shortness of breath; Z87.891 Personal history of nicotine dependence
CPT/HCPCS: 99285; 71045; 80053; 83880; 84484; 85025; 87426; 93005; A4216

== ENCOUNTER 2021-08-24 15:33 | Emergency (ER) | payer MEDICARE, SELFPAY ==
[2021-08-24 15:35] VITALS: BP 141/76; PULSE 61; RESP 24; TEMP 36.7; O2SAT 96; BMI 43.8
--- NOTE | 2021-08-24 16:21 | CT_ITS ---
STUDY: CT CERVICAL SPINE WITHOUT CONTRAST REASON FOR EXAM: Male, 66 years old. head trauma RADIATION DOSAGE (If Supplied By Facility): CTDIvol = ( 21.21 ) mGy, DLP = ( 427.09 ) mGycm TECHNIQUE: High resolution transaxial imaging was performed without contrast material. Sagittal and coronal images were reconstructed. Individualized dose optimization techniques were used for this CT. COMPARISON: 12/26/2015 FINDINGS: Normal craniovertebral junction. Normal anterior atlantoaxial articulation. Normal odontoid process. Decreased cervical lordosis. Normal vertebral bodies and posterior osseous elements. C2-3: Normal endplates. Normal disc height and morphology. Normal central canal and intervertebral neuroforamina. C3-4: Normal endplates. Normal disc height and morphology. Normal central canal and intervertebral neuroforamina. C4-5: Postop change status post anterior fusion and disc spacer placement.. Normal central canal and intervertebral neuroforamina. C5-6: Postop change status post anterior fusion spacer placement.. Normal central canal. Moderate to severe bilateral neuroforaminal stenosis secondary to bony hypertrophy C6-7: Postop change status post anterior fusion and disc spacer placement. Normal central canal. Moderate to severe bilateral neuroforaminal stenosis secondary to bony hypertrophy. C7-T1: Normal endplates. Normal disc height and morphology. Normal central canal and intervertebral neuroforamina. 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 Postop changes at C4-5, C5-6 and C6-7. Electronically Signed: Geovanny Yost MD at 17:42 EST ,
--- NOTE | 2021-08-24 16:21 | CT_ITS ---
STUDY: CT BRAIN WITHOUT CONTRAST REASON FOR EXAM: Male, 66 years old. head trauma RADIATION DOSAGE (If Supplied By Facility): CTDIvol = ( 47.06 ) mGy, DLP = ( 855.03 ) mGycm TECHNIQUE: Transaxial CT imaging of the brain was performed without administration of intravenous contrast material. Individualized dose optimization techniques were used for this CT. COMPARISON: 03/26/2018. FINDINGS: Normal soft tissue structures. Normal calvarium. Mild calcific plaquing of cavernous carotids Mild atrophy and periventricular white matter ischemic changes. Normal basal ganglia and thalami. Normal brainstem. Normal cerebellum. There is no intracranial hemorrhage. There are no findings of an acute ischemic infarction. Moderate mucosal thickening of left maxillary sinus. CT/Brain/Head without Contrast IMPRESSION: Mild atrophy and periventricular white matter ischemic change. No acute intracranial hemorrhage. Electronically Signed: Geovanny Yost MD at 17:04 EST ,
--- NOTE | 2021-08-24 16:22 | EX.ED.DYSGE1 ---
HPI History of Present Illness Chief Complaint: Syncope Detail of Chief Complaint: Slipped and fell on the ice. No LOC. No syncope Informant: patient Onset/Context/Timing Onset: Today Context: Sudden Onset Timing: Continuous Current Severity: Mild Maximum Severity: Mild Narrative Narrative: 66-year-old male history of A. fib, diabetes and hypertension. On Eliquis. Patient was actually seen today in the emergency department and worked up for shortness of breath. He was discharged home. Says he was feeling fine. He was going to go to the bank. He was walking on the driveway at his house he slipped and fell on the ice and when he fell backwards he hit his head. He denies any LOC. He said prior to the fall he felt fine. Prior similar symptoms: Yes Recent Illness/Hospitalization: No PFSH PFS Medical History Atrial flutter Diabetes mellitus HTN (hypertension) Morbid obesity Paroxysmal atrial fibrillation Home Medications aspirin 81 mg PO DAILY 03/26/18 [History Last Taken 02/14/20 09:00] flecainide 100 mg PO BID 03/26/18 [History Last Taken 02/14/20 17:00] lisinopril 5 mg PO DAILY 03/26/18 [History Last Taken 02/14/20 09:00] metformin 1,000 mg PO BID 03/26/18 [History Last Taken 02/14/20 17:00] pantoprazole 40 mg PO BID 03/26/18 [History Last Taken 02/14/20 17:00] sertraline 50 mg PO DAILY 03/26/18 [History Last Taken 02/14/20 09:00] cholecalciferol (vitamin D3) 1,000 unit PO DAILY 02/14/20 [History Last Taken 02/14/20 09:00] apixaban [Eliquis] 5 mg PO DAILY 02/11/21 [History Last Taken Unknown] pioglitazone 15 mg PO DAILY 02/11/21 [History Last Taken Unknown] hydrocortisone-pramoxine [Proctofoam HC] 1 applic CA TID PRN #10 g 02/12/21 [Rx Last Taken Unknown] cefpodoxime 200 mg PO BID #28 tab 03/20/21 [Rx Last Taken Unknown] promethazine 25 mg PO Q6H PRN PRN #14 tablet 03/20/21 [Rx Last Taken Unknown] Allergy/AdvReac Type Severity Reaction Status Date / Time lanolin Allergy Unknown Verified 03/19/21 17:35 wool Allergy Hives Verified 03/19/21 17:35 Social History Smoking Status: Former smoker substance use type: does not use ROS ROS ED ROS Narrative Denies. Review of Systems ROS Unobtainable: Denies due to encephalopathy Constitutional Constitutional ED: Denies fever(s) Eyes Eyes: Denies change in vision ENT ENT ED: Denies ear pain Cardiovascular Cardiovascular: Denies chest pain Respiratory/Chest Respiratory/Chest: Reports dyspnea Gastrointestinal Gastrointestinal: Denies abdominal pain, diarrhea, nausea or vomiting Genitourinary Genitourinary ED: Denies dysuria Musculoskeletal Musculoskeletal: Denies myalgias Integumentary Denies rash Neurologic Neurologic: Reports headache(s) Psychiatric Psychiatric: Denies depression Endocrine Endocrinology: Denies polyuria Allergic/Immunologic Allergic/Immunologic ED: Denies urticaria EXAM Physical Exam Narrative Exam Narrative: 62-year-old male no acute distress. Sitting upright in bed. Vital signs are stable and afebrile. Pulse ox 96% on room air no signs hypoxia. H EENT exam pupils round react light. No signs of facial trauma. Complaining of pain in the posterior scalp there is no hematoma or laceration. Trachea midline. Also complaining of diffuse pain over his neck primarily paracervical soft tissue but also the spine. Lungs clear to auscultation. Chest wall nontender. Ribs nontender. Abdomen soft nontender. Heart regular rate of 60. Abdomen obese but soft nontender normal bowel sounds no peritoneal signs. Pelvic girdle intact. He has normal strength both hands and feet. Normal dorsi plantar flexion. He can flex and extend at both hips knees and ankles. There is no deformity. There is no shortening or rotation. Back the thoracic and lumbar spine are nontender. There is no abrasions. Neurologically is awake and alert with no focal motor deficits. Const Vital Signs: 08/24/21 15:35 08/24/21 15:48 Temperature 98.0 F Temperature Source Oral Pulse Rate 61 Respiratory Rate 24 H Respiratory Effort Normal Respiratory Depth Normal Respiratory Pattern Normal Blood Pressure 141/76 H Blood Pressure Mean 97 Pulse Ox 96 Oxygen Delivery Method Room Air Room Air Positive well nourished, well developed and obese; Negative for cachectic, contractures or unkempt General Appearance ED: well developed and NAD; Negative for unkempt, cachectic, contractures, cyanotic, diaphoretic or pallor Nutritional Appearance: obese; Negative for cachectic HEENT Reports moist mucous membranes trauma and tenderness Eyes PERRL and EOMs intact bilaterally General Eye ED: Negative for pale conjunctiva or scleral icterus Neck no lymphadenopathy, supple and no JVD General: tenderness Chest Wall inspection of chest normal and palpation of chest normal Resp normal respiratory effort and clear to auscultation bilaterally Effort and Inspection: Negative for pain with movement Auscultation: Negative for rales, rhonchi, wheezes or diminished lung sounds Cardio regular rate, regular rhythm, S1 normal heart sound, S2 normal heart sound and no murmurs GI normal to inspection, nondistended, normoactive bowel sounds, non-tender, non-distended and no masses Inspection: Negative for abdominal distention Auscultation: normoactive bowel sounds Palpation: soft; Negative for tender, guarding or rebound tenderness present Back/Spine no CVA tenderness General Back: Negative for CVA tenderness Cervical Spine: cervical spine tenderness Thoracic Spine / Upper Back: paraspinal muscle tenderness; Negative for thoracic spinal tenderness Lumbar Spine / Lower Back: Negative for lumbar spinal tenderness Extremity normal to inspection General Extremety ED: Negative for edema or tenderness General Extremity: Negative for edema Neuro oriented x3, CN's II-XII intact bilaterally and no sensory deficits noted Sensorium / Orientation: alert; Negative for orientation impaired, lethargic or stuporous Sensory Exam: No sensory level loss detected Motor Exam: strength 5/5 throughout; Negative for general weakness Psych mental status grossly normal Appearance: Negative for unkempt Attitude: No agitated Mood & Affect: Negative for depressed, anxious or tearful Skin no rashes or lesions noted and no wounds General Skin Exam: Negative for jaundice or pallor MDM MDM MDM Narrative Medical decision making narrative: 66-year-old male who fell at home on the ice and struck the back of his head complained had neck pain. He is on Eliquis. We will CAT scan his head neck. He was seen earlier today for shortness of breath. That is completely unrelated to this afternoon's visit. Repeat exam patient is doing well at 6:25 PM will be discharged home. Radiography Diagnostic Testing: Clinical Impression(s) from Imaging Studies Brain CT 08/24/21 16:21 IMPRESSION: Mild atrophy and periventricular white matter ischemic change. No acute intracranial hemorrhage. Electronically Signed: Geovanny Yost MD at 17:04 EST Reading Location ID and State: [address] [place] [address] , Service support , CAT scan of the brain and C-spine shows no acute abnormality. Read by radiologist reviewed by me. Discharge Plan Triage Chief Complaint: Syncope ED Provider: Akil Yang Dx/Rx/DC Orders Clinical Impression: Fall, Head injury, Acute cervical myofascial strain, Chronic anticoagulation, History of atrial fibrillation Instructions: ED Head Injury (Adult) Prescriptions: No Action metformin 500 MG tablet 1,000 mg PO BID RF: 0 aspirin 81 MG tablet 81 mg PO DAILY RF: 0 pantoprazole 40 MG tablet,delayed release (DR/EC) 40 mg PO BID RF: 0 flecainide 100 MG tablet 100 mg PO BID RF: 0 lisinopril 5 MG tablet 5 mg PO DAILY RF: 0 sertraline 50 MG tablet 50 mg PO DAILY RF: 0 cholecalciferol (vitamin D3) 1,000 UNIT tablet 1,000 unit PO DAILY RF: 0 pioglitazone 15 mg tablet 15 mg PO DAILY RF: 0 Eliquis 5 mg tablet 5 mg PO DAILY RF: 0 Proctofoam HC 1-1 % foam 1 applic CA TID PRN (Reason: hemorrhoids) Qty: 10 RF: 0 cefpodoxime 200 mg tablet 200 mg PO BID Qty: 28 RF: 0 promethazine 25 mg tablet 25 mg PO Q6H PRN PRN (Reason: Nausea) Qty: 14 RF: 0 Primary Care Provider: Devonte Moon Referrals: Devonte Moon MD [Primary Care Provider] - 3-5 Days if not improving Activity Restrictions/Additional Instructions: Ice all sore areas. Tylenol for pain. Return if severe headache, intractable vomiting or not acting herself. Your CAT scans of your head neck today were good. Disposition Disposition: Home, Self Care
[2021-08-24 17:32] VITALS: BP 168/81; PULSE 55; RESP 19; O2SAT 95
[2021-08-24 18:00] VITALS: BP 158/85; PULSE 58; RESP 18; O2SAT 98
== END 2021-08-24 18:48 | disposition home or self-care (01) ==
PROVIDERS: Emergency Provider Emergency Medicine; PCP Family Medicine; Visit Provider Emergency Medicine
DX: S09.90XA Unspecified injury of head, initial encounter (principal); S16.1XXA Strain of muscle, fascia and tendon at neck level, initial encounter; R06.02 Shortness of breath; R06.00 Dyspnea, unspecified; Z79.01 Long term (current) use of anticoagulants; Z87.891 Personal history of nicotine dependence; W00.0XXA Fall on same level due to ice and snow, initial encounter
CPT/HCPCS: 70450; 71045; 72125; 80053; 83880; 84484; 85025; 87426; 93005; 99284; 99285; A4216

== ENCOUNTER 2021-11-13 12:08 | Emergency (ER) | payer MEDICARE, SELFPAY ==
[2021-11-13 12:29] VITALS: BP 127/86; PULSE 67; RESP 18; TEMP 36.1; O2SAT 97; BMI 42.8
--- NOTE | 2021-11-13 12:39 | CT_ITS ---
STUDY: CT BRAIN WITHOUT CONTRAST REASON FOR EXAM: Male, 66 years old. FALL, headache RADIATION DOSAGE (If Supplied By Facility): CTDIvol = ( 62.82 ) mGy, DLP = ( 1205.75 ) mGycm TECHNIQUE: Transaxial CT imaging of the brain was performed without administration of intravenous contrast material. Individualized dose optimization techniques were used for this CT. COMPARISON: 08/25/2021 FINDINGS: Normal soft tissue structures. Normal calvarium. Normal size ventricles and extra-axial spaces for the patient''s age. Normal white matter tracts of the cerebral hemispheres. Normal basal ganglia and thalami. Normal brainstem. Normal cerebellum. There is no intracranial hemorrhage. There are no findings of an acute ischemic infarction. Normal visualized paranasal sinuses. CT/Brain/Head without Contrast IMPRESSION: Normal unenhanced CT scan of the brain. Electronically Signed: Shakir Hopkins MD at 13:43 EDT ,
--- NOTE | 2021-11-13 13:05 | CT_ITS ---
STUDY: CT CERVICAL SPINE WITHOUT CONTRAST REASON FOR EXAM: Male, 66 years old. fall, RADIATION DOSAGE (If Supplied By Facility): CTDIvol = ( 46.66 ) mGy, DLP = ( 1074.99 ) mGycm TECHNIQUE: High resolution transaxial imaging was performed without contrast material. Sagittal and coronal images were reconstructed. Individualized dose optimization techniques were used for this CT. COMPARISON: 08/24/2021 FINDINGS: Normal craniovertebral junction. There are degenerative changes of the anterior atlantoaxial articulation. Normal odontoid process. There is straightening of the normal cervical lordosis. Normal vertebral bodies and posterior osseous elements. C2-3: Normal endplates. Normal disc height and morphology. Normal central canal and intervertebral neuroforamina. C3-4: Normal endplates. Normal disc height and morphology. Normal central canal and intervertebral neuroforamina. C4-5: Status post anterior cervical discectomy and fusion with bony bridging with anatomic alignment with no spinal stenosis or neural foraminal stenosis. C5-6: Status post anterior cervical discectomy and fusion with bony bridging with anatomic alignment with some ossified formation which produces mild spinal stenosis and mild bilateral neural foraminal stenosis. C6-7: Status post anterior cervical discectomy and fusion with bony bridging with anatomic alignment and some osteophyte formation producing mild spinal stenosis and mild bilateral neural foraminal stenosis. C7-T1: Normal endplates. Normal disc height and morphology. Normal central canal and intervertebral neuroforamina. Normal visualized soft tissue structures. CT/Spine Cervical without Contras IMPRESSION: No acute fracture or subluxation. Electronically Signed: Shakir Hopkins MD at 13:47 EDT ,
--- NOTE | 2021-11-13 13:07 | EDS_ITS ---
HPI HPI - Fall History of Present Illness Chief Complaint: Fall Informant: patient Occured/Mechanism Occurred: Today Mechanism/Context: Yes same level fall Pain/Injury Pain Location: head and back Narrative Narrative: Patient presents via EMS after a fall. He states he was trying to get some cans out from underneath his sink when he lost his balance and fell backwards striking his head on the floor. He complains of headache with some mild neck and low back pain. He complains of feeling dizzy. He is on Eliquis. Last dose was this morning. [facility] Medical History Atrial flutter Diabetes mellitus HTN (hypertension) Morbid obesity Paroxysmal atrial fibrillation Home Medications aspirin 81 mg PO DAILY 03/26/18 [History Last Taken 02/14/20 09:00] flecainide 100 mg PO BID 03/26/18 [History Last Taken 02/14/20 17:00] lisinopril 5 mg PO DAILY 03/26/18 [History Last Taken 02/14/20 09:00] metformin 1,000 mg PO BID 03/26/18 [History Last Taken 02/14/20 17:00] pantoprazole 40 mg PO BID 03/26/18 [History Last Taken 02/14/20 17:00] sertraline 50 mg PO DAILY 03/26/18 [History Last Taken 02/14/20 09:00] cholecalciferol (vitamin D3) 1,000 unit PO DAILY 02/14/20 [History Last Taken 02/14/20 09:00] apixaban [Eliquis] 5 mg PO DAILY 02/11/21 [History Last Taken Unknown] pioglitazone 15 mg PO DAILY 02/11/21 [History Last Taken Unknown] hydrocortisone-pramoxine [Proctofoam HC] 1 applic MD TID PRN #10 g 02/12/21 [Rx Last Taken Unknown] cefpodoxime 200 mg PO BID #28 tab 03/20/21 [Rx Last Taken Unknown] promethazine 25 mg PO Q6H PRN PRN #14 tablet 03/20/21 [Rx Last Taken Unknown] Allergy/AdvReac Type Severity Reaction Status Date / Time lanolin Allergy Unknown Verified 11/13/21 12:30 wool Allergy Hives Verified 11/13/21 12:30 Social History Smoking Status: Former smoker substance use type: does not use ROS ROS ED Constitutional Constitutional ED: Denies chills or fever(s) Eyes Eyes: Denies change in vision ENT ENT ED: Denies sore throat Cardiovascular Cardiovascular: Denies chest pain Respiratory/Chest Respiratory/Chest: Denies cough or dyspnea Gastrointestinal Gastrointestinal: Denies abdominal pain, nausea or vomiting Genitourinary Genitourinary ED: Denies dysuria Musculoskeletal Musculoskeletal: Reports back pain and neck pain Integumentary Denies rash Neurologic Neurologic: Reports headache(s); Denies weakness Allergic/Immunologic Allergic/Immunologic ED: Denies urticaria EXAM Physical Exam Const Vital Signs: 11/13/21 12:29 11/13/21 13:20 Temperature 97 F L Temperature Source Temporal Pulse Rate 67 66 Respiratory Rate 18 18 Respiratory Effort Normal Respiratory Depth Normal Respiratory Pattern Normal Blood Pressure 127/86 H 155/84 H Blood Pressure Mean 99 107 Pulse Ox 97 98 Oxygen Delivery Method Room Air Room Air Positive obese Nutritional Appearance: obese HEENT Reports normocephalic atraumatic Eyes PERRL and EOMs intact bilaterally Neck full ROM Neck Narrative: Mild lower C-spine tenderness to palpation. No step-offs. Chest Wall inspection of chest normal and palpation of chest normal Resp normal respiratory effort and clear to auscultation bilaterally Cardio regular rate and regular rhythm GI non-tender Palpation: soft Extremity normal to inspection General Extremety ED: Yes normal exam except as noted General Extremity: normal exam except as noted Neuro oriented x3, moves all extremities, no focal motor deficits and no sensory deficits noted Sensorium / Orientation: alert Psych mental status grossly normal Skin Lesions: no lesions Rashes: no rashes MDM MDM MDM Narrative Medical decision making narrative: Patient sent for CT scan of the head and C- spine. Lumbar x-rays obtained. 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 Lab Data Attestation: I reviewed the patient's lab results. Labs: Laboratory Results - last 24 hr 11/13/21 11/13/21 11/13/21 13:25 13:25 13:25 WBC 6.9 RBC 5.38 Hgb 15.8 Hct 46.8 MCV 87.0 MCH 29.4 MCHC 33.8 RDW Std Deviation 39.6 RDW Coeff of [place] 12.4 Plt Count 234 MPV 8.6 Immature Gran % (Auto) 0.600 Neut % (Auto) 76.6 H Lymph % (Auto) 12.5 L [place] % (Auto) 7.7 Eos % (Auto) 1.9 Baso % (Auto) 0.7 Absolute Neuts (auto) 5.3 Absolute Lymphs (auto) 0.86 Nucleated RBC % 0 PT 13.8 INR 1.1 APTT 34.1 Sodium 138 Potassium 4.6 Chloride 104 Carbon Dioxide 28.0 Anion Gap 6 BUN 21 H Creatinine 1.70 H Estim Creat Clear Calc 42.74 Est GFR (MDRD) Af Amer 52 L Est GFR (MDRD) Non-Af 43 L BUN/Creatinine Ratio 12.4 Glucose 205 H Calcium 9.4 Radiography Diagnostic Testing: Clinical Impression(s) from Imaging Studies Brain CT 11/13/21 12:39 IMPRESSION: Normal unenhanced CT scan of the brain. Electronically Signed: Shakir Hopkins MD at 13:43 EDT Reading Location ID and State: [employer] [facility] [employer] , Service support , Cervical Spine CT 11/13/21 13:05 IMPRESSION: No acute fracture or subluxation. Electronically Signed: Shakir Hopkins MD at 13:47 EDT Reading Location ID and State: [employer] Tel , Service support , Lumbar Spine X-Ray 11/13/21 13:15 IMPRESSION: 1. No acute fracture or subluxation. 2. Diffuse degenerative disc disease. Electronically Signed: Shakir Hopkins MD at 13:53 EDT Reading Location ID and State: [employer] Tel , Service support , Treatment and Re-Evaluation Narrative: L-spine x-rays per my interpretation reveal no acute fracture. Radiology interpretation also reviewed. CT scan of the head and C-spine unremarkable per radiology read. Lab work largely unremarkable. Creatinine is 1.7 which appears near patient's baseline. Patient has been ordered IV fluids and Tylenol, however at this time states he feels improved and just wants to go home. He will be discharged with return instructions. Discharge Plan Triage Chief Complaint: Fall ED Provider: Annamaria Funez Dx/Rx/DC Orders Clinical Impression: Fall, CHI (closed head injury), Lumbar contusion Instructions: ED Back Contusion, ED Head Injury (Adult) Prescriptions: No Action metformin 500 MG tablet 1,000 mg PO BID RF: 0 aspirin 81 MG tablet 81 mg PO DAILY RF: 0 pantoprazole 40 MG tablet,delayed release (DR/EC) 40 mg PO BID RF: 0 flecainide 100 MG tablet 100 mg PO BID RF: 0 lisinopril 5 MG tablet 5 mg PO DAILY RF: 0 sertraline 50 MG tablet 50 mg PO DAILY RF: 0 cholecalciferol (vitamin D3) 1,000 UNIT tablet 1,000 unit PO DAILY RF: 0 pioglitazone 15 mg tablet 15 mg PO DAILY RF: 0 Eliquis 5 mg tablet 5 mg PO DAILY RF: 0 Proctofoam HC 1-1 % foam 1 applic MD TID PRN (Reason: hemorrhoids) Qty: 10 RF: 0 cefpodoxime 200 mg tablet 200 mg PO BID Qty: 28 RF: 0 promethazine 25 mg tablet 25 mg PO Q6H PRN PRN (Reason: Nausea) Qty: 14 RF: 0 Primary Care Provider: Devonte Moon Referrals: Devonte Moon MD [Primary Care Provider] - 1-2 Weeks Disposition Disposition: Home, Self Care
--- NOTE | 2021-11-13 13:15 | RAD_ITS ---
STUDY: X-RAY - LUMBAR SPINE REASON FOR EXAM: Male, 66 years old. fall, low back pain TECHNIQUE: 3 view(s) of the lumbar spine were obtained. COMPARISON: 12/26/2015 FINDINGS: Normal lumbar lordosis. There is no substantial scoliosis. There is a normal alignment of the vertebrae. There is multilevel endplate spondylosis of the lumbar vertebrae. There is multi-level degenerative disc disease with multi-level disc space narrowing. Facet hypertrophy throughout the lumbar spine. The soft tissue structures are unremarkable. RAD/Lumbar Spine 2 or 3 Views IMPRESSION: 1. No acute fracture or subluxation. 2. Diffuse degenerative disc disease. Electronically Signed: Shakir Hopkins MD at 13:53 EDT ,
[2021-11-13 13:20] VITALS: BP 155/84; PULSE 66; RESP 18; O2SAT 98
[2021-11-13 13:36] LABS: Absolute Lymphocyte Count 0.86 X10^3/uL (0.83-4.51); Absolute Neutrophil Count 5.3 X10^3/uL (2.0-7.7); Basophil# 0.05 X10^3/uL; Basophil% 0.7 % (0-1); Eosinophil# 0.13 X10^3/uL; Eosinophils% 1.9 % (0-5); Hematocrit 46.8 % (40-54); Hemoglobin 15.8 g/dL (13.0-16.5); Lymphocyte # 0.86 X10^3/ul (0.83-4.51); Lymphocyte % 12.5 % (19-41); Mean Corp Hgb Conc 33.8 g/dL (32-36); Mean Corpuscular Hgb 29.4 pg (27.0-32.0); Mean Platelet Vol. 8.6 fl (6.2-12.0); Monocyte# 0.53 X10^3/uL; Monocyte% 7.7 % (0-10); NRBC Flagged by Analyzer 0 % (0-5); Neutrophil # 5.27 X10^3/uL (2.7-7.7); Neutrophil % 76.6 % (47-70); Platelet Count 234 K/mm3 (150-450); RBC Distribution Width CV 12.4 % (11.6-14.6); RBC Distribution Width SD 39.6 fl (35.1-43.9); Red Blood Count 5.38 M/mm3 (4.6-6.2); White Blood Count 6.9 K/mm3 (4.4-11.0)
[2021-11-13 13:45] LABS: Anion Gap 6 (5-15); BUN 21 mg/dL (7-18); BUN/Creat Ratio 12.4 RATIO (10-20); Calcium,Total 9.4 mg/dL (8.5-10.1); Chloride 104 mmol/L (98-107); EST Glomerular Filtration Rate 43 mL/min (>60); Est Glom Filt Rate - Afr Amer 52 mL/min (>60); Estimated Creatinine Clearance 42.74 ml/min; Glucose 205 mg/dL (74-106); Potassium 4.6 mmol/L (3.5-5.1); Sodium Level 138 mmol/L (136-145)
[2021-11-13 13:46] LABS: International Normalized Ratio 1.1; Prothrombin Time (Protime)PT. 13.8 SECONDS (11.7-14.9)
[2021-11-13 13:47] LABS: Partial Thromboplast Time 34.1 Seconds (24.1-36.2)
--- NOTE | 2021-11-13 14:51 | NURSING ---
Upon entering room patient stated he wants to leave. Patient will not state why he wants to leave or what this nurse could do to get him to stay. notified.
[2021-11-13 14:59] VITALS: BP 140/89; PULSE 62; RESP 16; O2SAT 98
== END 2021-11-13 15:04 | disposition home or self-care (01) ==
PROVIDERS: Emergency Provider Emergency Medicine; PCP Family Medicine; Visit Provider Emergency Medicine
DX: S09.90XA Unspecified injury of head, initial encounter (principal); S30.0XXA Contusion of lower back and pelvis, initial encounter; Z87.891 Personal history of nicotine dependence; W18.30XA Fall on same level, unspecified, initial encounter
CPT/HCPCS: 70450; 72100; 72125; 80048; 85025; 85610; 85730; 99285; A4216

== ENCOUNTER 2024-02-26 10:23 | Emergency (ER) | payer MEDICARE, SELFPAY ==
--- NOTE | 2024-02-26 10:24 | EKG12_ITS ---
Test Reason : Blood Pressure : / mmHG Vent. Rate : 059 BPM Atrial Rate : 059 BPM P-R Int : 210 ms QRS Dur : 084 ms QT Int : 442 ms P-R-T Axes : 056 059 050 degrees QTc Int : 437 ms Sinus bradycardia with 1st degree A-V block Otherwise normal ECG Confirmed by Jose Simms ([id number]), senior technical editor JORDY DENT ([id number]) on 02/27/2024 8:17:42 AM Referred By: Confirmed By:Jose Simms
[2024-02-26 10:25] VITALS: BP 135/80; PULSE 58; RESP 16; TEMP 36.8; O2SAT 98; BMI 41.8
[2024-02-26 11:24] VITALS: BP 133/61; PULSE 57; RESP 12; O2SAT 100
--- NOTE | 2024-02-26 11:29 | EX.ED.DYSGE1 ---
HPI History of Present Illness Chief Complaint: Syncope Narrative Narrative: 68-year-old male past medical history of syncope and psychogenic syncope, atrial fibrillation on Eliquis, presents via EMS from the [facility] office with dizziness and reported syncope. Per triage, patient had drops in his eyes to dilate them. He states he passed out 5 or 6 times very briefly. Causing him dizziness but no nausea. He denies any headache, no paresthesias, no exacerbating or alleviating factors. He states he feels improved, but never had a syncopal episode to eyedrops previously. She denies any prodromal chest pain or shortness of breath. [facility] Medical History Atrial flutter Morbid obesity Diabetes mellitus HTN (hypertension) Paroxysmal atrial fibrillation Home Medications ?Medication ?Instructions ?Recorded ?Last Taken ?Type aspirin 81 mg tablet,delayed 81 mg PO DAILY heart health 03/26/18 02/14/20 09:00 History release flecainide 100 mg tablet 100 mg PO BID heart rate 03/26/18 02/14/20 17:00 History lisinopril 5 mg tablet 5 mg PO DAILY blood pressure 03/26/18 02/14/20 09:00 History metformin 500 mg tablet 1,000 mg PO BID diabetes 03/26/18 02/14/20 17:00 History pantoprazole 40 mg tablet,delayed 40 mg PO BID gerd 03/26/18 02/14/20 17:00 History release sertraline 50 mg tablet 50 mg PO DAILY depression 03/26/18 02/14/20 09:00 History cholecalciferol (vitamin D3) 25 1,000 unit PO DAILY vitamin 02/14/20 02/14/20 09:00 History mcg (1,000 unit) tablet apixaban 5 mg tablet (Eliquis) 5 mg PO DAILY 02/11/21 Unknown History pioglitazone 15 mg tablet 15 mg PO DAILY 02/11/21 Unknown History hydrocortisone 1 %-pramoxine 1 % 1 applic RI TID PRN hemorrhoids 02/12/21 Unknown Rx rectal foam (Proctofoam HC) #10 grams cefpodoxime 200 mg tablet 200 mg PO BID #28 tabs 03/20/21 Unknown Rx promethazine 25 mg tablet 25 mg PO Q6H PRN PRN Nausea #14 03/20/21 Unknown Rx TABLETS Allergy/AdvReac Type Severity Reaction Status Date / Time lanolin Allergy Unknown Verified 02/26/24 10:24 wool Allergy Hives Verified 02/26/24 10:24 Social History Smoking Status: Former smoker substance use type: does not use ROS ROS ED ROS Narrative Constitutional: No fever, no chills. HEENT: No sore throat. No neck pain. No loss of vision. No rhinorrhea. Cardiovascular: No chest pain. No palpitations. No pedal edema. Respiratory: No cough, no shortness of breath. Abdominal: No abdominal pain. No nausea. No vomiting. Genitourinary: No dysuria. No hematuria. Musculoskeletal: No myalgias. No arthralgias. Neurologic: No headaches. Positive dizziness. No lightheadedness. Multiple episodes of brief syncope, 5 or 6 times. Skin: No rash. No change in color. Psychiatric: No depression. No anxiety. EXAM Physical Exam Narrative Exam Narrative: Afebrile. Vital signs noted. HEENT: Normocephalic. Atraumatic. Dilated but still reactive PERRL, sluggish secondary to medication, EOMI. Neck soft and supple. No point tenderness or step off. Cardiovascular: Regular rate and rhythm. No murmurs, rubs, or gallops appreciated. Respiratory: No tachypnea. Lungs clear to auscultation bilaterally. Gastrointestinal: Abdomen soft, nontender, with normoactive bowel sounds. No rebound or guarding. Neurological: Awake. Alert. Nonfocal, nonlateralizing. Skin: No rash. Normal color. No pallor. Musculoskeletal: No pedal edema. Full range of motion extremities. Const Vital Signs: 02/26/24 10:25 02/26/24 10:25 02/26/24 11:24 Temperature 98.2 F Temperature Source Temporal Pulse Rate 58 L 57 L Respiratory Rate 16 12 Respiratory Effort Normal Non-Labored Respiratory Pattern Normal Blood Pressure 135/80 H 133/61 H Blood Pressure Mean 98 85 Pulse Ox 98 100 Oxygen Delivery Method Room Air Room Air 02/26/24 12:00 02/26/24 13:00 Temperature Temperature Source Pulse Rate 56 L 57 L Respiratory Rate 20 H 21 H Respiratory Effort Respiratory Pattern Blood Pressure 133/68 H 102/76 Blood Pressure Mean 89 84 Pulse Ox 97 96 Oxygen Delivery Method MDM MDM MDM Narrative Medical decision making narrative: I reviewed the prehospital EKG, and the EKG that was obtained here which demonstrates sinus bradycardia at 59 bpm with first-degree AV block but no acute ST changes. No STEMI. I will obtain a single troponin but I do not feel he needs serial enzymes. He is not having chest pain. His QTc is normal at 437 ms. Differential diagnosis includes but not limited to vasovagal reaction versus psychogenic syncope versus dizziness secondary to his eyes being dilated. I reviewed his laboratory work and he has normal white count of 6.9, hemoglobin normal at 14.7, hematocrit 45.9, plate count normal at 224. Chloride is slightly elevated at 108 which I think is nonspecific, glucose appropriately elevated at 127 with anion gap low at 4. I have low suspicion for diabetic ketoacidosis or hypoglycemia as a cause of his syncope. High-sensitivity troponin is 10. I do not feel he needs serial enzymes. I did obtain a CT of the brain because he is on Eliquis and was complaining of dizziness. This was to rule out intracranial hemorrhage. CT of the brain radiology report reviewed and there is no acute process. There are chronic involutional changes. At this point in time, upon repeat examination at approximately 1330, he is sitting up in bed and feeling improved. I feel he be discharged safely home with follow-up. He may have had more psychogenic syncope and I have low suspicion for seizures. Return instructions to the emergency department were reviewed. Disposition is discharged home in stable condition. History & Record Review Discussion w/independent historian: Patient Lab Data Attestation: I reviewed the patient's lab results. Labs: Laboratory Results - last 24 hr 02/26/24 12:00 WBC 6.9 RBC 5.40 Hgb 14.7 Hct 45.9 MCV 85.0 MCH 27.2 MCHC 32.0 RDW Std Deviation 43.2 RDW Coeff of Darrell 14.1 Plt Count 224 MPV 8.5 Immature Gran % (Auto) 1.200 H Neut % (Auto) 77.3 H Lymph % (Auto) 10.7 L Saunders % (Auto) 7.5 Eos % (Auto) 2.3 Baso % (Auto) 1.0 Absolute Neuts (auto) 5.3 Absolute Lymphs (auto) 0.74 L Nucleated RBC % 0 Sodium 138 Potassium 5.1 Chloride 108 H Carbon Dioxide 26.0 Anion Gap 4 L BUN 35 H Creatinine 1.89 H Estim Creat Clear Calc 48.80 Est GFR (MDRD) Af Amer 46 L Est GFR (MDRD) Non-Af 38 L BUN/Creatinine Ratio 18.5 Glucose 127 H Calcium 9.1 Troponin I High Sens 10 Radiography Diagnostic Testing: Clinical Impression(s) from Imaging Studies Brain CT 02/26/24 12:22 IMPRESSION: Chronic involutional changes of the brain. Electronically Signed: Michael Sepulveda MD at 12:38 EDT , Discharge Plan Triage Chief Complaint: Syncope Other Complaint: Dizziness ED Provider: Anjum Yeung Dx/Rx/DC Orders Clinical Impression: Syncope, Dizziness Instructions: ED Dizziness, Uncertain Cause, ED Fainting, Uncertain Cause Prescriptions: No Action metformin 500 MG tablet 1,000 mg PO BID aspirin 81 MG tablet 81 mg PO DAILY pantoprazole 40 MG tablet,delayed release (DR/EC) 40 mg PO BID flecainide 100 MG tablet 100 mg PO BID lisinopril 5 MG tablet 5 mg PO DAILY sertraline 50 MG tablet 50 mg PO DAILY cholecalciferol (vitamin D3) 1,000 UNIT tablet 1,000 unit PO DAILY pioglitazone 15 mg tablet 15 mg PO DAILY Patient Comments: TAKE 1 TABLET BY MOUTH ONCE DAILY Eliquis 5 mg tablet 5 mg PO DAILY Patient Comments: TAKE 1 TABLET BY MOUTH TWICE DAILY Proctofoam HC 1-1 % foam 1 applic RI TID PRN (Reason: hemorrhoids) Qty: 10 0RF cefpodoxime 200 mg tablet 200 mg PO BID Qty: 28 0RF Rx Instructions: must administer with a meal/food promethazine 25 mg tablet 25 mg PO Q6H PRN PRN (Reason: Nausea) Qty: 14 0RF Primary Care Provider: Devonte Moon Referrals: Devonte Moon MD [Primary Care Provider] - 1-2 Days if not improving Print Language: Amharic Disposition Disposition: Home, Self Care
[2024-02-26 12:00] VITALS: BP 133/68; PULSE 56; RESP 20; O2SAT 97
[2024-02-26] MEDS: 0.9% Normal Saline (1000mL) 1,000 ML 999 ML IV (12:11)
[2024-02-26 12:12] LABS: Absolute Lymphocyte Count 0.74 X10^3/uL (0.83-4.51); Absolute Neutrophil Count 5.3 X10^3/uL (2.0-7.7); Basophil# 0.07 X10^3/uL; Eosinophil# 0.16 X10^3/uL; Eosinophils% 2.3 % (0-5); Hematocrit 45.9 % (40-54); Hemoglobin 14.7 g/dL (13.0-16.5); Lymphocyte # 0.74 X10^3/ul (0.83-4.51); Lymphocyte % 10.7 % (19-41); Mean Corpuscular Hgb 27.2 pg (27.0-32.0); Mean Platelet Vol. 8.5 fl (6.2-12.0); Monocyte# 0.52 X10^3/uL; Monocyte% 7.5 % (0-10); NRBC Flagged by Analyzer 0 % (0-5); Neutrophil # 5.33 X10^3/uL (2.7-7.7); Neutrophil % 77.3 % (47-70); Platelet Count 224 K/mm3 (150-450); RBC Distribution Width CV 14.1 % (11.6-14.6); RBC Distribution Width SD 43.2 fl (35.1-43.9); White Blood Count 6.9 K/mm3 (4.4-11.0)
--- NOTE | 2024-02-26 12:22 | CT_ITS ---
STUDY: CT BRAIN WITHOUT CONTRAST REASON FOR EXAM: Male, 68 years old. Dizziness, on [place] RADIATION DOSAGE (If Supplied By Facility): CTDIvol = ( 44.99 ) mGy, DLP = ( 846.73 ) mGycm TECHNIQUE: Transaxial CT imaging of the brain was performed without administration of intravenous contrast material. Individualized dose optimization techniques were used for this CT. COMPARISON: Comparison is made with prior study of November 13, 2021. FINDINGS: Normal soft tissue structures. Normal calvarium. There is mild cerebral atrophy with widening of the extra-axial spaces and ventricular dilatation. Normal white matter tracts of the cerebral hemispheres. Normal basal ganglia and thalami. Normal brainstem. Normal cerebellum. There is no intracranial hemorrhage. There are no findings of an acute ischemic infarction. Atherosclerotic plaque formation of the cavernous portions of the internal carotid arteries bilaterally. Normal visualized paranasal sinuses. CT/Brain/Head without Contrast IMPRESSION: Chronic involutional changes of the brain. Electronically Signed: Michael Sepulveda MD at 12:38 EDT ,
[2024-02-26 12:28] LABS: Anion Gap 4 (5-15); BUN 35 mg/dL (7-18); BUN/Creat Ratio 18.5 RATIO (10-20); Calcium,Total 9.1 mg/dL (8.5-10.1); Chloride 108 mmol/L (98-107); Creatinine, Serum 1.89 mg/dL (0.70-1.30); EST Glomerular Filtration Rate 38 mL/min (>60); Est Glom Filt Rate - Afr Amer 46 mL/min (>60); Glucose 127 mg/dL (74-106); Potassium 5.1 mmol/L (3.5-5.1); Sodium Level 138 mmol/L (136-145); Troponin-I HS 10 pg/mL (3.0-78.0)
[2024-02-26 13:00] VITALS: BP 102/76; PULSE 57; RESP 21; O2SAT 96
[2024-02-26 14:00] VITALS: BP 104/66; BP 132/89; PULSE 60; PULSE 78; RESP 18; TEMP 36.6; O2SAT 96; O2SAT 99
== END 2024-02-26 14:32 | disposition home or self-care (01) ==
PROVIDERS: Emergency Provider Emergency Medicine; PCP Family Medicine; Visit Provider Emergency Medicine
DX: R55 Syncope and collapse (principal); I48.0 Paroxysmal atrial fibrillation; E11.9 Type 2 diabetes mellitus without complications; R42 Dizziness and giddiness; Z87.891 Personal history of nicotine dependence
CPT/HCPCS: 70450; 80048; 84484; 85025; 93005; 99283; J7030; A4216